=== PATIENT | female | born 1965 | race Caucasian/White ===

== ENCOUNTER → 2018-09-29 09:23 | Outpatient (POV) | payer BC, SELFPAY | PROVIDERS: Visit Provider Dermatology | DX: Z00.00 Encounter for general adult medical examination without abnormal findings (principal) ==

== ENCOUNTER → 2018-10-27 09:36 | Outpatient (POV) | payer BC, SELFPAY | PROVIDERS: Visit Provider Dermatology | DX: Z00.00 Encounter for general adult medical examination without abnormal findings (principal) ==

== ENCOUNTER → 2018-11-27 08:27 | Outpatient (CLI) | payer BC, SELFPAY ==
--- NOTE | 2018-11-27 08:30 | MR_ITS ---
MR head/brain wo/w con HISTORY: Electric shock pulses and tingling in the body ITS.REASON: DYSESTHESIA AFFECTING BOTH SIDE ORDERING PHYSICIAN: Raiza Harden APRN PATIENT AGE: 53 years Comparison: None TECHNIQUE: Standard multiplanar multiecho sequences are performed without and with gadolinium enhancement 2 FINDINGS: No midline shift, mass effect, intracranial hemorrhage, or hydrocephalus is evident. The cerebellopontine angles, cerebellum, and brainstem have an unremarkable appearance. There is normal razo-white matter differentiation. No enhancing lesions are evident. There is a partially empty sella as a normal variant. The optic chiasm, corpus callosum, and craniocervical junction have an unremarkable appearance. The hippocampal structures are unremarkable in the temporal horns are symmetric. No mastoid effusion or sinus air-fluid level IMPRESSION: Negative MRI of the brain without and with contrast
--- NOTE | 2018-11-27 10:12 | HMH.ITSHM ---
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 []TEMAZEPAM GABAPENTIN CETIRIZINE HCL MONTELUKAST ALBUTEROL SULFATE HYDROXYCHLOROQUINE TRIAMCINOLONE ACETONIDE CREAM LOSARTAN HYDROXYZINE PANTOPRAZOLE ULORIC TRAMADOL BUMETUNIDE POTASSIUM B COMPLEX D3 BIOTIN MULTI VITAMIN
== END ==
PROVIDERS: PCP Nurse Practitioner Family; Visit Provider Nurse Practitioner Family
DX: R20.8 Other disturbances of skin sensation (principal); R20.2 Paresthesia of skin
CPT/HCPCS: 70553; A9576

== ENCOUNTER → 2018-12-10 11:18 | Outpatient (CLI) | payer BC, SELFPAY ==
--- NOTE | 2018-12-10 11:42 | XR_ITS ---
XR knee LT 3V HISTORY: ITS.REASON: LT KNEE PAIN ORDERING PHYSICIAN: Raiza Harden APRN PATIENT AGE: 53 years COMPARISON: None FINDINGS: The bone density is normal. There is a rounded ring type of sclerotic area at the anterior proximal tibia which is likely related to the anterior tibial tuberosity. There is no definite focal osseous lesion. There is no acute fracture or joint effusion. The joint spaces and alignment are normal. Soft tissues are unremarkable. Impression: No acute process.
== END ==
PROVIDERS: PCP Nurse Practitioner Family; Visit Provider Nurse Practitioner Family
DX: M25.562 Pain in left knee (principal)
CPT/HCPCS: 73562

== ENCOUNTER → 2019-02-04 14:01 | Outpatient (CLI) | payer BC, SELFPAY ==
--- NOTE | 2019-02-04 14:11 | XR_ITS ---
PROCEDURE: XR CHEST 2V CLINICAL HISTORY: PRURITUS The COMPARISON: No exams were available for comparison FINDINGS: Borderline cardiomegaly without failure. There is mild prominence of the superior mediastinum possibly due to overlying vasculature but is more prominent when compared to 09/19/2015. Lungs are clear. No acute bony findings. IMPRESSION: No acute finding. Borderline cardiomegaly without failure. Mild prominence of the upper mediastinum. Suggest follow-up to confirm stability Dictated by: Kristian Rick MD 02/04/2019 14:43 Signed by: <Electronically signed by Kristian Rick MD in [place]> 02/04/2019 14:43
== END ==
PROVIDERS: PCP Nurse Practitioner Family; Visit Provider Dermatology
DX: L29.8 Other pruritus (principal)
CPT/HCPCS: 71046

== ENCOUNTER → 2019-03-29 07:11 | Outpatient (CLI) | payer BC, SELFPAY ==
--- NOTE | 2019-03-29 | CA_ITS ---
APPROVED REPORT Exam: Pharmacologic Technologist: Jana Ortega Ht: 5 ft 6 in Wt: 254 lbs BSA: 2.21 m2 HR: 70 bpm BP: 91/61 mmHg Indications: Chest pain, Shortness of Air Medical History Medications: Gabapentin,,,,, Multi Vitamin,,,,, Vitamin D3,,,,, Losartan,,,,, Pantoprazole,,,,, Temazepam,,,,, Iron,,,,, Tramadol,,,,, Montelukast,,,,, Hydroxychloroquine,,,,, CetIRIZINE,,,,, BuMETANIDE,,,,, Stress Test Details Test: LEXISCAN HR Resting HR: 72 bpm Max Heart Rate (APMHR): 167 bpm Max HR Achieved: 98 bpm Target HR (85% APMHR): 141 bpm % of APMHR: 58 Recovery HR: 82 bpm BP Resting BP: 91.0/61.0 mmHg Max BP: 116.0/49.0 mmHg Recovery BP: 114.0/47.0 mmHg ECG Clinical Exercise duration: 04:02 min Highest Stage Achieved: Stress ECG Conclusion Resting ECG: Sinus Rhythm Lexiscan portion complete. Symptoms: No chest pain, shortness of breath or nausea. Arrhythmias/Ectopy: Occasional PVC. Occasional PAC. ST-T Changes: Less than 1.[address] depression. Conclusion: Non-diagnostic. Images to follow. Electronically signed by : Dean Levine, 03/29/2019 21:32:19
--- NOTE | 2019-03-29 07:12 | NM_ITS ---
APPROVED REPORT Exam: Nuclear Stress Test Indication: Chest pain, SOB Patient Location: Outpatient Stress Tech: Jana Ortega [place] Tech:Charity Orr JONIT, RT (R)(N) Ht: 5 ft 6 in Wt: 254 lbs Bra Size: 44D HR: 70 bpm BP: 91/60 mmHg BSA: 2.21 m2 BMI: 40.9 History: Chest pain, SOB Procedure: Patient received a 0.4 mg of intravenous Lexiscan, resting heart rate 70 bpm, resting blood pressure 91/60 mmHg, with Lexiscan maximum heart rate achived was 85 bpm which is Less than 85 % of the maximum predicted heart rate and blood pressure was 115/46 mmHg. With Lexiscan, patient denied any complaint of chest pain. Electrocardiogram Resting electrocardiogram shows sinus rhythm, with Lexiscan there is less than 1.[address] segment depression noted from the baseline EKG. The EKG portion of the Lexiscan is nondiagnostic. Cardiac Stress and Resting SPECT Images: Cardiac Stress and Resting SPECT images were obtained using technetium 99m Myoview 32.7 mCi stress and 10.20 mCi at rest. Gated SPECT with analysis of segmental wall motion and calculation of the ejection fraction also done. Cardiac stress and resting SPECT images show mild defect in the anterior wall with normal perfusion of the apex and normal contractility and the gated SPECT is likely secondary to soft tissue attenuation, no reversible ischemia seen. Computer derived ejection fraction is over 65% with no regional wall motion abnormality, right ventricle is normal size and contractility. Conclusion: 1. The EKG portion of the Lexiscan Myoview is nondiagnostic. 2. No scintigraphic evidence of reversible ischemia seen, mild defect in the anterior wall is likely secondary to soft tissue attenuation, computer derived ejection fraction is over 65% with no regional wall motion abnormality, right ventricle is normal size and contractility. 3. Likely normal Lexiscan Myoview study. Electronically signed by : Dean Levine, 03/29/2019 21:35:04
--- NOTE | 2019-03-29 07:12 | CA_ITS ---
APPROVED REPORT EXAM: Comprehensive 2D, Doppler, and color-flow Echocardiogram Corrections Corporal: Ailyn Valencia RDCS Ht: 5 ft 6 in Wt: 253lbs BSA: 2.21 BP: 102/56 mmHg Indications: Abnormal ECG, Chest Pain, Shortness of Breath 2D Dimensions LVOT 1.80 cm (M/F) 1.5-2.5 M-Mode Dimensions RVDd 2.50 cm (0.9-2.6) LA Diam 4.80 cm (1.9-4.0) LVDd 5.70 cm (3.5-5.7) Ao Diam 2.60 cm (2.0-3.7) LVDs 4.30 cm (3.5-5.7) AV Cusp 1.40 cm (1.5-2.6) IVSd 1.00 cm (0.6-1.1) PWd 1.00 cm (0.6-1.1) EF (Teich) 48.10% FS 24.60% EDV (Teich) 160.00 mL ESV (Teich) 83.10 mL LV Diastology E/A Ratio 1.6 MED E' 10.00 (< 7 cm/sec) E'/MED E' Ratio 10.80 (>14) LAT E' 14.70 (<10 cm/sec) E/LAT E' Ratio 7.30 (>14) Mitral Valve MV E Max Vimal. 108.00 (40-130 cm/s) MV A Velocity 67.60 (40-130 cm/s) E/A Ratio 1.60 Left Ventricle Left atrium is upper limit of the normal size, left ventricle is normal size, there is no concentric left ventricular hypertrophy, visually estimated ejection fraction 55% with no regional wall motion abnormality, diastolic parameters are within normal range. Right Ventricle Right atrium and right ventricular normal size and contractility. Aortic Valve Aortic valve is grossly normal, there is no aortic stenosis aortic insufficiency. Mitral Valve Mitral valve is grossly normal, there is no mitral stenosis, there is mild mitral regurgitation. Tricuspid Valve Tricuspid valve is grossly normal, there is mild tricuspid regurgitation, tricuspid regurgitation jet velocity is inadequate for calculation of the right ventricular systolic pressure. Pulmonic Valve Pulmonic valve is poorly visualized. Great Vessels Aortic root is normal size. Pericardium No significant pericardial effusion noted. Conclusion 1. Normal left ventricular size, preserved left ventricular systolic function, visually estimated ejection fraction 55% with no regional wall motion abnormality, diastolic parameters are within normal range. 2. Mild mitral and tricuspid regurgitation. 3. No significant pericardial effusion noted. Electronically signed by : Dean Levine, 03/30/2019 06:12:13
--- NOTE | 2019-03-29 09:22 | HMH.ITSHM ---
Current Home Medications as stated by this patient Elana Nicholson or sales representative consultant. []GABAPENTIN CETIRIZINE MONTELKAST HYDROXYCHLORAQUINE LOSARTAN PANTOPRAZOLE ULORIC B-COMPLEX D3 MULTIVITAMIN IRON TEMAZEMPAM TRAMADOL BUMETANIDE POTASSIUM
== END ==
PROVIDERS: PCP Nurse Practitioner Family; Visit Provider Internal Medicine
DX: R06.00 Dyspnea, unspecified (principal); I42.9 Cardiomyopathy, unspecified; I51.7 Cardiomegaly; R53.83 Other fatigue; R60.0 Localized edema; R94.31 Abnormal electrocardiogram [ECG] [EKG]; G47.00 Insomnia, unspecified
CPT/HCPCS: 78452; 93017; 93306; A9502; J2785

== ENCOUNTER → 2019-04-07 07:54 | Outpatient (CLI) | payer BC, SELFPAY ==
--- NOTE | 2019-04-07 08:03 | US_ITS ---
PROCEDURE: US SOFT TISSUE HEAD AND NECK CLINICAL INDICATION: CERVICAL LYMPHADENOPATHY COMPARISON: No exams were available for comparison FINDINGS: The parotid and submandibular glands have an unremarkable appearance. There is palpable area reported in the right lateral neck. This represents a an enlarged hypoechoic lymph node measuring 18 x 13 mm. Other smaller nodes are also present. The largest node in the right lateral neck region measures 2.3 by 1.3 cm. No obvious abscess or other significant anomaly IMPRESSION: Right cervical adenopathy. Recommend follow-up regarding appropriate treatment. If the nodes do not decrease in size then, fine needle aspiration/core biopsy could be obtained with ultrasound guidance. Consider CT scan with contrast for further evaluation. Dictated by: Kristian Rick MD 04/07/2019 15:33 Electronically signed by Kristian Rick MD in [place] 04/07/2019 15:33
--- NOTE | 2019-04-07 08:03 | US_ITS ---
PROCEDURE: US THYROID CLINICAL INDICATION: THYROID NODULE COMPARISON: No exams were available for comparison FINDINGS: Right lobe: 4.4 x 1.7 x 2.6 cm. 7 x 4 mm cystic nodule in the upper pole. In the mid polar region there are 2 solid-appearing nodules measuring 8 x 5 and 8 x 6 mm. Left lobe: 3.5 x 1.6 x 1.5 cm. There is an ill-defined area of decreased echogenicity in the upper pole at 6 mm possibly due to small nodule versus heterogeneous echogenicity. Isthmus: Mildly thickened at 4 mm Additional findings: IMPRESSION: Benign-appearing nodules of the thyroid gland. Suggest 6 month follow-up. Dictated by: Kristian Rick MD 04/07/2019 15:48 Electronically signed by Kristian Rick MD in [place] 04/07/2019 15:48
--- NOTE | 2019-04-07 08:04 | MM_ITS ---
PROCEDURE: MM DIG SCREENING MAMM BI W/CAD Patient Age:54Y CLINICAL INDICATION: SCREENING baseline screening mammogram. No hormones. But no new complaints. Noncontributory family history. 54-year-old. COMPARISON: No exams were available for comparison baseline mammogram TECHNIQUE: Standard CC and MLO images were obtained. R2 CAD reviewed. FINDINGS: Low-density breast minimal residual fibroglandular elements with generalized fatty replacement. No suspicious or dominant mass in either breast but no suspicious calcifications. CAD highlights no areas of significant concern. Only note benign-appearing small dense axillary lymph node on left with no suspicious areas . Bilateral follow-up 1 year IMPRESSION: Negative baseline mammogram. No areas of significant concern. Low-density breast fatty replacement Bilateral follow-up 1 year recommended BI-RAD Category: FOLLOW-UP: (A letter has been sent to the patient regarding results of the study.) Dictated by: Howard Abbasi MD 04/10/2019 07:56 Electronically signed by Howard Abbasi MD in [place] 04/10/2019 07:56
== END ==
PROVIDERS: PCP Nurse Practitioner Family; Visit Provider Nurse Practitioner Family
DX: E01.0 Iodine-deficiency related diffuse (endemic) goiter (principal); R59.0 Localized enlarged lymph nodes; Z12.31 Encounter for screening mammogram for malignant neoplasm of breast
CPT/HCPCS: 76536; 77067

== ENCOUNTER → 2019-04-23 09:37 | Outpatient (CLI) | payer BC, SELFPAY ==
--- NOTE | 2019-04-23 09:39 | CT_ITS ---
PROCEDURE: CT SOFT TISSUE NECK WO/W CON CLINICAL HISTORY: difficulty swallowing Goiter, dysphagia COMPARISON: US THYROID from 04/07/2019 TECHNIQUE: Oral Contrast: None IV Contrast: 75ml optiray 350 Axial images obtained with sagittal and coronal reformats. All CT scans at the facility use one or more dose reduction, viz: automated exposure control, ma/kV adjustment per patient size (including targeted exams where dose is matched to indication, i.e. head), or iterative reconstruction technique. FINDINGS: The there is cervical adenopathy mainly in the supraclavicular region with left supraclavicular node at 3.8 x 1.4 cm. Images obtained of the upper chest also showed mediastinal adenopathy with blane mass measuring up to 3.8 x 3 cm. The pharynx, epiglottis, and glottic region is unremarkable. There is nodularity of the thyroid gland. Please see recent ultrasound report IMPRESSION: Cervical and mediastinal adenopathy. Differential diagnosis includes lymphoma, metastatic disease or infection/inflammation Dictated by: Kristian Rick MD 04/25/2019 09:35 Electronically signed by Kristian Rick MD in [place] 04/25/2019 09:35
--- NOTE | 2019-04-23 09:39 | FL_ITS ---
PROCEDURE: FL BARIUM SWALLOW CLINICAL INDICATION: dysphagia COMPARISON: No exams were available for comparison TECHNIQUE: In the upright position the patient was observed to swallow barium in both the AP and lateral view. The cervical esophagus was examined under fluoroscopy with images obtained. The patient was then placed prone in the right anterior oblique position and was observed to swallow barium with Valsalva technique . FLUOROSCOPY TIME: 53 seconds FINDINGS: There was no evidence of aspiration. There was normal peristalsis. No filling defects or mucosal abnormalities. No masses or strictures. No hernia or reflux IMPRESSION: Negative barium swallow. Dictated by: Kristian Rick MD 04/23/2019 15:50 Electronically signed by Kristian Rick MD in [place] 04/23/2019 15:50
[2019-04-23 10:29] LABS: Blood Urea Nitrogen 8 mg/dL (7-18); Creatinine,Serum 1.07 mg/dL (0.55-1.02); Estimated Glomerular Filt Rate 54 ml/min (>60); GFR (African American) 65 ML/MIN (>60)
== END ==
PROVIDERS: PCP Nurse Practitioner Family; Visit Provider Otolaryngology
DX: R13.10 Dysphagia, unspecified (principal); E04.9 Nontoxic goiter, unspecified; R59.0 Localized enlarged lymph nodes
CPT/HCPCS: 36415; 70492; 74220; 82565; 84520; Q9967

== ENCOUNTER → 2019-05-18 13:34 | Outpatient (CLI) | payer BC, SELFPAY ==
[2019-05-19 13:48] LABS: Occult Blood,Stool Negative (Negative)
[2019-05-19 13:48] LABS: Occult Blood,Stool Negative (Negative)
== END ==
PROVIDERS: Visit Provider Internal Medicine Gastroenterology
DX: D50.9 Iron deficiency anemia, unspecified (principal)
CPT/HCPCS: 82272; G0328

== ENCOUNTER → 2019-05-19 13:27 | Outpatient (CLI) | payer BC, SELFPAY ==
[2019-05-19 13:47] LABS: Occult Blood,Stool Negative (Negative)
== END ==
PROVIDERS: Visit Provider Internal Medicine Gastroenterology
DX: D50.9 Iron deficiency anemia, unspecified (principal)
CPT/HCPCS: 82272; G0328

== ENCOUNTER → 2019-05-25 09:26 | Outpatient (CLI) | payer BC, SELFPAY ==
--- NOTE | 2019-05-25 09:28 | US_ITS ---
PROCEDURE: US FNA LYMPH NODE/ultrasound-guided core biopsy right neck CLINICAL INDICATION: Cervical adenopathy COMPARISON: 04/23/2019 FINDINGS: Following obtaining informed consent and time-out procedure using aseptic technique and ultrasound guidance with local anesthesia with 1 percent buffered lidocaine initial fine needle aspiration performed the dominant right supraclavicular nodule. Two FNA is were performed with 21 gauge needle 1 in formalin and the other and RPMI. Following this, a skin max was performed and an 18 gauge core biopsy needle was inserted. Four cores were obtained with sonographic guidance. Two samples were put in the formaldehyde and 2 samples in the RPMI. The patient tolerated the procedure well without evidence of immediate complication. Pathology: Atypical lymphoid population. Please see pathologist report IMPRESSION: Successful sonographic guided fine needle aspiration and core biopsy of right supraclavicular nodule without complications Dictated by: Kristian Rick MD 05/29/2019 11:36 Electronically signed by Kristian Rick MD in [place] 05/29/2019 11:36
== END ==
PROVIDERS: PCP Nurse Practitioner Family; Visit Provider Otolaryngology
DX: R59.0 Localized enlarged lymph nodes (principal)
CPT/HCPCS: 38505; 76942

== ENCOUNTER → 2019-06-03 15:23 | Outpatient (CLI) | payer BC, SELFPAY ==
--- NOTE | 2019-06-03 | ECG_ITS ---
APPROVED REPORT Exam: Resting ECG HR:64 bpm ECG Measurements Heart Rate 64 AXES WY 160 P 54 QRSd 82 QRS 73 QT 412 T 61 QTc 425 <Conclusion> Normal sinus rhythm Low voltage QRS Borderline ECG Electronically signed by : Jose Pryor, 06/04/2019 07:22:27
[2019-06-03 16:06] LABS: Basophils % 0.4 % (0.1-2.0); Eosinophils # 0.5 K/mm3 (0.0-0.4); Eosinophils % 5.7 % (0.1-12.0); Hematocrit 34.4 % (37.0-47.0); Hemoglobin 10.1 g/dL (12.2-16.2); Lymphocytes # 1.2 K/mm3 (0.7-4.5); Lymphocytes % 14.4 % (10-50); Mean Corpuscular HGB Conc 29.4 g/dL (31.8-35.4); Mean Corpuscular Volume 74.9 fl (81-99); Mean Platelet Volume 7.6 fl (7.4-10.4); Monocytes # 0.5 K/mm3 (0.1-1.0); Neutrophils # 6.1 K/mm3 (1.8-7.8); Neutrophils % 73.6 % (37.0-80.0); Platelet Count 185 K/mm3 (142-424); Red Cell Distribution Width 17.2 % (11.5-17.5); White Blood Count 8.2 K/mm3 (4.8-10.8)
[2019-06-03 19:46] LABS: Alanine Aminotransferase 18 U/L (12-78); Albumin Level 3.2 gm/dL (3.4-5.0); Alkaline Phosphatase 97 U/L (46-116); Anion Gap 14.4 mEq/L (5-15); Aspartate Amino Transferase 14 U/L (15-37); Bilirubin,Total 0.1 mg/dL (0.2-1.0); Blood Urea Nitrogen 15 mg/dL (7-18); Calcium 7.9 mg/dL (8.5-10.1); Carbon Dioxide 28 mmol/L (21.0-32.0); Chloride 105 mmol/L (98-107); Creatinine,Serum 1.09 mg/dL (0.55-1.02); Estimated Glomerular Filt Rate 53 ml/min (>60); GFR (African American) 64 ML/MIN (>60); Globulin 3.3 gm/dl (1.3-3.2); Glucose 109 mg/dL (74-106); Potassium 4.4 mmoL/L (3.5-5.1); Sodium 143 mmol/L (136-145); Total Protein,Serum 6.5 gm/dL (6.4-8.2)
== END ==
PROVIDERS: Visit Provider Otolaryngology
DX: Z01.818 Encounter for other preprocedural examination (principal); R59.0 Localized enlarged lymph nodes
CPT/HCPCS: 36415; 80053; 85025; 93005

== ENCOUNTER → 2019-06-29 11:02 | Outpatient (CLI) | payer BC, SELFPAY ==
[2019-06-29 11:05] LABS: Microscopic, Urine URINE MICROSCOPIC (MICROSCOPIC)
[2019-06-29 11:27] LABS: Basophils # 0.1 K/mm3 (0-0.2); Basophils % 0.5 % (0.1-2.0); Eosinophils # 0.3 K/mm3 (0.0-0.4); Eosinophils % 2.8 % (0.1-12.0); Hematocrit 37.2 % (37.0-47.0); Hemoglobin 11.1 g/dL (12.2-16.2); Lymphocytes # 1.3 K/mm3 (0.7-4.5); Lymphocytes % 14.5 % (10-50); Mean Corpuscular HGB Conc 29.7 g/dL (31.8-35.4); Mean Corpuscular Hemoglobin 22.4 pg (27.0-31.2); Mean Corpuscular Volume 75.2 fl (81-99); Mean Platelet Volume 8.2 fl (7.4-10.4); Monocytes # 0.6 K/mm3 (0.1-1.0); Monocytes % 6.2 % (1.7-9.3); Neutrophils # 6.8 K/mm3 (1.8-7.8); Neutrophils % 75.8 % (37.0-80.0); Platelet Count 258 K/mm3 (142-424); Red Blood Count 4.95 M/mm3 (4.20-5.40); Red Cell Distribution Width 15.6 % (11.5-17.5)
[2019-06-29 11:42] LABS: Anion Gap 13.4 mEq/L (5-15); Appearance,Urine CLEAR (Clear); Bilirubin,Urine Negative (Negative); Blood Urea Nitrogen 19 mg/dL (7-18); Blood, Urine Negative (Negative); Calcium 9.1 mg/dL (8.5-10.1); Carbon Dioxide 26 mmol/L (21.0-32.0); Chloride 106 mmol/L (98-107); Color,Urine YELLOW (Yellow); Creatinine,Serum 1.07 mg/dL (0.55-1.02); Estimated Glomerular Filt Rate 54 ml/min (>60); GFR (African American) 65 ML/MIN (>60); Glucose 98 mg/dL (74-106); Glucose,Urine (UA) Negative (Negative); Ketones,Urine Negative (Negative); Leukocyte Esterase,Urine Negative (Negative); Nitrate,Urine Negative (Negative); Potassium 4.4 mmoL/L (3.5-5.1); Protein,Urine Negative (Negative); Sodium 141 mmol/L (136-145); Specific Gravity, Urine >= 1.030 (1.005-1.030); Urobilinogen,Urine 0.2 EU/dl (0.2)
[2019-06-29 12:10] LABS: Bacteria,Urine Trace /lpf; WBC,Urine Occasional #/hpf (0-3)
== END ==
PROVIDERS: Visit Provider Surgery
DX: C81.91 Hodgkin lymphoma, unspecified, lymph nodes of head, face, and neck (principal)
CPT/HCPCS: 36415; 80048; 81001; 85025

== ENCOUNTER 2019-07-08 10:09 | Outpatient (CLI) | payer BC, SELFPAY ==
[2019-07-08] VITALS (11 sets, daily range): BP systolic 98–114; BP diastolic 46–64; PULSE 61–81; RESP 18–20; TEMP 36.9; O2SAT 92–99; BMI 40.8
[2019-07-08 11:25] LABS: Ferritin 37 ng/mL (8-388)
[2019-07-08 11:35] LABS: Erythrocyte Sedimentation Rate > 140 mm/hr (0-30)
[2019-07-09 13:30] LABS: Iron 12 ug/dL (27-159); UIBC 289 ug/dL (131-425)
[2019-07-10 09:27] LABS: Iron Saturation 4 % (15-55)
== END 2019-07-08 14:00 | disposition home or self-care (01) ==
LOC: INF 10:09
PROVIDERS: Visit Provider Internal Medicine Medical Oncology
DX: Z51.11 Encounter for antineoplastic chemotherapy (principal); C81.71 Other Hodgkin lymphoma, lymph nodes of head, face, and neck
CPT/HCPCS: 82728; 83540; 83550; 85651; 96409; 96411; 96413; 96417; J1642; J9000; J9040; J9130; J9360; Q0166

== ENCOUNTER 2019-07-12 09:59 | Outpatient (CLI) | payer BC, SELFPAY ==
[2019-07-12 10:00] VITALS: BMI 40.8
[2019-07-12 10:19] LABS: Basophils % 0.1 % (0.1-2.0); Eosinophils # 0.1 K/mm3 (0.0-0.4); Eosinophils % 1.6 % (0.1-12.0); Hematocrit 33.1 % (37.0-47.0); Hemoglobin 10.2 g/dL (12.2-16.2); Lymphocytes # 0.7 K/mm3 (0.7-4.5); Lymphocytes % 11.3 % (10-50); Mean Corpuscular HGB Conc 30.9 g/dL (31.8-35.4); Mean Corpuscular Hemoglobin 22.3 pg (27.0-31.2); Mean Corpuscular Volume 72.2 fl (81-99); Mean Platelet Volume 9.6 fl (7.4-10.4); Monocytes # 0.1 K/mm3 (0.1-1.0); Neutrophils # 5.2 K/mm3 (1.8-7.8); Platelet Count 97 K/mm3 (142-424); Red Blood Count 4.59 M/mm3 (4.20-5.40); Red Cell Distribution Width 15.1 % (11.5-17.5)
[2019-07-12 10:24] LABS: MANUAL DIFFERENTIAL MANUAL DIFFERENTIAL (MANUAL DIFF)
[2019-07-12 10:27] VITALS: BP 134/71; PULSE 52; RESP 20; TEMP 36.4; O2SAT 98
[2019-07-12 10:34] LABS: Alanine Aminotransferase 23 U/L (12-78); Albumin Level 3.1 gm/dL (3.4-5.0); Albumin/Globulin Ratio 0.9 (1.1-1.8); Alkaline Phosphatase 84 U/L (46-116); Anion Gap 13.9 mEq/L (5-15); Aspartate Amino Transferase 20 U/L (15-37); Bilirubin,Total 0.6 mg/dL (0.2-1.0); Blood Urea Nitrogen 21 mg/dL (7-18); Calcium 8.4 mg/dL (8.5-10.1); Carbon Dioxide 28 mmol/L (21.0-32.0); Chloride 102 mmol/L (98-107); Creatinine Clearance Estimated 112 mL/min (50-200); Creatinine,Serum 1.05 mg/dL (0.55-1.02); Estimated Glomerular Filt Rate 55 ml/min (>60); GFR (African American) 66 ML/MIN (>60); Globulin 3.3 gm/dl (1.3-3.2); Glucose 105 mg/dL (74-106); Potassium 3.9 mmoL/L (3.5-5.1); Sodium 140 mmol/L (136-145); Total Protein,Serum 6.4 gm/dL (6.4-8.2)
[2019-07-12 10:46] LABS: Eosinophils % 1 % (0-3); Hypochromasia 2+; Lymphocytes % 12 % (10-50); Monocytes % 2 % (2-9); Neutrophils % 85 % (42-76); Total Cells Counted 100
[2019-07-12 10:47] LABS: Platelet Estimate Marked Decrease
[2019-07-12 11:00] VITALS: BP 137/68; PULSE 68; RESP 20; TEMP 36.4; O2SAT 95
[2019-07-12 11:25] VITALS: BP 132/74; PULSE 68; RESP 20; TEMP 36.9; O2SAT 98
== END 2019-07-12 11:30 | disposition home or self-care (01) ==
LOC: INF 09:59
PROVIDERS: PCP Nurse Practitioner Family; Visit Provider Internal Medicine Medical Oncology
DX: C81.71 Other Hodgkin lymphoma, lymph nodes of head, face, and neck (principal)
CPT/HCPCS: 80053; 85007; 85025; 96360; 96375; J1642

== ENCOUNTER 2019-07-16 13:32 | Outpatient (CLI) | payer BC, SELFPAY ==
[2019-07-16 13:40] VITALS: BMI 40.6
[2019-07-16 13:48] VITALS: BP 143/72; PULSE 69; RESP 18; O2SAT 100
[2019-07-16 14:04] LABS: Basophils % 1.4 % (0.1-2.0); Eosinophils % 4.2 % (0.1-12.0); Hemoglobin 11.3 g/dL (12.2-16.2); Lymphocytes # 0.4 K/mm3 (0.7-4.5); Lymphocytes % 81.7 % (10-50); Mean Corpuscular HGB Conc 31.4 g/dL (31.8-35.4); Mean Corpuscular Hemoglobin 22.1 pg (27.0-31.2); Mean Corpuscular Volume 70.5 fl (81-99); Mean Platelet Volume 9.4 fl (7.4-10.4); Monocytes % 0.5 % (1.7-9.3); Neutrophils # 0.1 K/mm3 (1.8-7.8); Platelet Count 166 K/mm3 (142-424); Red Cell Distribution Width 16.1 % (11.5-17.5)
[2019-07-16 14:09] LABS: Neutrophils % 12.2 % (37.0-80.0)
[2019-07-16 14:12] LABS: MANUAL DIFFERENTIAL MANUAL DIFFERENTIAL (MANUAL DIFF); White Blood Count 0.4 K/mm3 (4.8-10.8)
[2019-07-16 14:25] LABS: Eosinophils % 3 % (0-3); Lymphocytes % 84 % (10-50); Neutrophils % 6 % (42-76); Total Cells Counted 100
[2019-07-16 14:26] LABS: Alanine Aminotransferase 31 U/L (12-78); Albumin Level 3.6 gm/dL (3.4-5.0); Albumin/Globulin Ratio 1.1 (1.1-1.8); Alkaline Phosphatase 80 U/L (46-116); Anion Gap 15.4 mEq/L (5-15); Anisocytosis 1+; Aspartate Amino Transferase 15 U/L (15-37); Bilirubin,Total 0.7 mg/dL (0.2-1.0); Blood Urea Nitrogen 22 mg/dL (7-18); Calcium 8.5 mg/dL (8.5-10.1); Carbon Dioxide 25 mmol/L (21.0-32.0); Chloride 95 mmol/L (98-107); Creatinine Clearance Estimated 116 mL/min (50-200); Creatinine,Serum 1.01 mg/dL (0.55-1.02); Estimated Glomerular Filt Rate 57 ml/min (>60); GFR (African American) 69 ML/MIN (>60); Globulin 3.2 gm/dl (1.3-3.2); Glucose 112 mg/dL (74-106); Microcytosis 1+; Platelet Estimate Normal; Potassium 3.4 mmoL/L (3.5-5.1); Sodium 132 mmol/L (136-145); Total Protein,Serum 6.8 gm/dL (6.4-8.2)
[2019-07-16 14:45] VITALS: BP 140/73; PULSE 73; RESP 18; O2SAT 100
== END 2019-07-16 14:45 | disposition still patient (30) ==
LOC: INF 13:32
PROVIDERS: Visit Provider Internal Medicine Medical Oncology
DX: C81.90 Hodgkin lymphoma, unspecified, unspecified site (principal); D50.9 Iron deficiency anemia, unspecified
CPT/HCPCS: 80053; 85007; 85025; 96365; J1439; J1642

== ENCOUNTER 2019-07-22 10:16 | Outpatient (CLI) | payer BC, SELFPAY ==
[2019-07-22] VITALS (9 sets, daily range): BP systolic 86–124; BP diastolic 44–63; PULSE 69–91; RESP 18; O2SAT 93; BMI 38.4
[2019-07-22 10:45] LABS: Basophils # 0.1 K/mm3 (0-0.2); Basophils % 1.4 % (0.1-2.0); Hematocrit 34.1 % (37.0-47.0); Hemoglobin 10.8 g/dL (12.2-16.2); Lymphocytes # 1.6 K/mm3 (0.7-4.5); Lymphocytes % 27.2 % (10-50); Mean Corpuscular HGB Conc 31.8 g/dL (31.8-35.4); Mean Corpuscular Hemoglobin 22.7 pg (27.0-31.2); Mean Corpuscular Volume 71.4 fl (81-99); Mean Platelet Volume 9.3 fl (7.4-10.4); Monocytes # 1.2 K/mm3 (0.1-1.0); Monocytes % 20.6 % (1.7-9.3); Neutrophils % 50.7 % (37.0-80.0); Platelet Count 267 K/mm3 (142-424); Red Blood Count 4.78 M/mm3 (4.20-5.40); Red Cell Distribution Width 15.7 % (11.5-17.5)
[2019-07-22 10:54] LABS: MANUAL DIFFERENTIAL MANUAL DIFFERENTIAL (MANUAL DIFF)
[2019-07-22 10:57] LABS: Alanine Aminotransferase 30 U/L (12-78); Albumin Level 2.9 gm/dL (3.4-5.0); Albumin/Globulin Ratio 0.8 (1.1-1.8); Alkaline Phosphatase 87 U/L (46-116); Anion Gap 12.9 mEq/L (5-15); Aspartate Amino Transferase 20 U/L (15-37); Bilirubin,Total 0.2 mg/dL (0.2-1.0); Blood Urea Nitrogen 23 mg/dL (7-18); Calcium 7.9 mg/dL (8.5-10.1); Carbon Dioxide 26 mmol/L (21.0-32.0); Chloride 95 mmol/L (98-107); Creatinine Clearance Estimated 60 mL/min (50-200); Creatinine,Serum 1.86 mg/dL (0.55-1.02); Estimated Glomerular Filt Rate 28 ml/min (>60); GFR (African American) 34 ML/MIN (>60); Globulin 3.7 gm/dl (1.3-3.2); Glucose 102 mg/dL (74-106); Sodium 131 mmol/L (136-145); Total Protein,Serum 6.6 gm/dL (6.4-8.2)
[2019-07-22 11:01] LABS: Potassium 2.9 mmoL/L (3.5-5.1)
[2019-07-22 11:07] LABS: Acanthocytes 1+; Anisocytosis 1+; Hypochromasia 2+; Lymphocytes % 30 % (10-50); Microcytosis 1+; Monocytes % 16 % (2-9); Myelocytes % 3 (0-1); Neutrophils % 39 % (42-76); Platelet Estimate Normal; Poikilocytosis 2+; Total Cells Counted 100
--- NOTE | 2019-07-22 11:17 | PC.NURSE ---
1117-pt left to go to oncology appointment will return to possibly get chemo
== END 2019-07-22 14:55 | disposition home or self-care (01) ==
LOC: INF 10:16
PROVIDERS: Visit Provider Internal Medicine Medical Oncology
DX: C81.90 Hodgkin lymphoma, unspecified, unspecified site (principal); D50.9 Iron deficiency anemia, unspecified
CPT/HCPCS: 80053; 85007; 85025; 96360; 96361; J1439; J1642

== ENCOUNTER 2019-07-26 09:00 | Outpatient (CLI) | payer BC, SELFPAY ==
[2019-07-26] VITALS (13 sets, daily range): BP systolic 102–133; BP diastolic 62–78; PULSE 61–78; RESP 18; TEMP 36.6–36.9; O2SAT 100; BMI 37.8
[2019-07-26 09:30] LABS: Alanine Aminotransferase 22 U/L (12-78); Albumin Level 2.6 gm/dL (3.4-5.0); Albumin/Globulin Ratio 0.7 (1.1-1.8); Alkaline Phosphatase 81 U/L (46-116); Anion Gap 15.3 mEq/L (5-15); Aspartate Amino Transferase 16 U/L (15-37); Bilirubin,Total 0.1 mg/dL (0.2-1.0); Blood Urea Nitrogen 9 mg/dL (7-18); Calcium 7.9 mg/dL (8.5-10.1); Carbon Dioxide 24 mmol/L (21.0-32.0); Chloride 109 mmol/L (98-107); Creatinine Clearance Estimated 96 mL/min (50-200); Creatinine,Serum 1.14 mg/dL (0.55-1.02); Estimated Glomerular Filt Rate 50 ml/min (>60); GFR (African American) 60 ML/MIN (>60); Globulin 3.5 gm/dl (1.3-3.2); Glucose 103 mg/dL (74-106); Potassium 3.3 mmoL/L (3.5-5.1); Sodium 145 mmol/L (136-145); Total Protein,Serum 6.1 gm/dL (6.4-8.2)
== END 2019-07-26 14:35 | disposition home or self-care (01) ==
LOC: INF 09:00
PROVIDERS: Visit Provider Internal Medicine Medical Oncology
DX: Z51.11 Encounter for antineoplastic chemotherapy (principal); C81.90 Hodgkin lymphoma, unspecified, unspecified site
CPT/HCPCS: 80053; 96409; 96411; 96413; 96415; 96417; J1642; J9000; J9040; J9130; J9360; Q0166

== ENCOUNTER 2019-08-02 08:46 | Outpatient (CLI) | payer BC, SELFPAY ==
--- NOTE | 2019-08-02 08:46 | US_ITS ---
PROCEDURE: US GALLBLADDER CLINICAL INDICATION: gallstones COMPARISON: No exams were available for comparison FINDINGS: Pancreas: Visualized portions are unremarkable Liver: There is diffuse fatty infiltration of the liver.. There is appropriate direction of blood flow within a non dilated portal vein. Right kidney: Unremarkable appearing. No hydronephrosis. Gallbladder: There is a small gallstone. Common bile duct is not dilated measuring 2.9 millimeters. There is no gallbladder wall thickening or ancillary finding of acute cholecystitis. IMPRESSION: Cholelithiasis without ancillary findings of acute cholecystitis. Dictated by: Enzo Davis 08/02/2019 10:38 Electronically signed by Enzo Davis in [place] 08/02/2019 10:38
[2019-08-02 10:26] VITALS: BMI 37.8
[2019-08-02 10:50] VITALS: BP 132/71; PULSE 71; RESP 20; TEMP 37.2; O2SAT 100
[2019-08-02 11:10] LABS: Eosinophils % 0.8 % (0.1-12.0); Hematocrit 29.9 % (37.0-47.0); Hemoglobin 9.6 g/dL (12.2-16.2); Lymphocytes # 0.2 K/mm3 (0.7-4.5); Lymphocytes % 38.7 % (10-50); Mean Corpuscular HGB Conc 32.1 g/dL (31.8-35.4); Mean Corpuscular Hemoglobin 23.1 pg (27.0-31.2); Mean Platelet Volume 9.8 fl (7.4-10.4); Monocytes % 3.2 % (1.7-9.3); Neutrophils # 0.3 K/mm3 (1.8-7.8); Neutrophils % 55.3 % (37.0-80.0); Platelet Count 94 K/mm3 (142-424); Red Blood Count 4.16 M/mm3 (4.20-5.40); Red Cell Distribution Width 15.5 % (11.5-17.5)
[2019-08-02 11:15] LABS: White Blood Count 0.6 K/mm3 (4.8-10.8)
[2019-08-02 11:17] LABS: MANUAL DIFFERENTIAL MANUAL DIFFERENTIAL (MANUAL DIFF)
[2019-08-02 11:21] LABS: Alanine Aminotransferase 45 U/L (9-52); Albumin/Globulin Ratio 0.9 (1.1-1.8); Alkaline Phosphatase 77 U/L (46-116); Aspartate Amino Transferase 22 U/L (15-37); Bilirubin,Total 0.6 mg/dL (0.2-1.0); Blood Urea Nitrogen 24 mg/dL (7-18); Calcium 8.5 mg/dL (8.5-10.1); Carbon Dioxide 25 mmol/L (21.0-32.0); Chloride 100 mmol/L (98-107); Creatinine Clearance Estimated 98 mL/min (50-200); Creatinine,Serum 1.11 mg/dL (0.55-1.02); Estimated Glomerular Filt Rate 51 ml/min (>60); GFR (African American) 62 ML/MIN (>60); Globulin 3.5 gm/dl (1.3-3.2); Glucose 131 mg/dL (74-106); Sodium 135 mmol/L (137-145); Total Protein,Serum 6.5 g/dL (6.4-8.2)
[2019-08-02 11:48] LABS: Lymphocytes % 40 % (10-50); Monocytes % 12 % (2-9); Neutrophils % 48 % (42-76); Total Cells Counted 25
[2019-08-02 11:49] LABS: Anisocytosis 1+; Hypochromasia 1+; Microcytosis 1+; Platelet Estimate Moderate Decrease
[2019-08-02 13:00] VITALS: BP 123/61; PULSE 75; RESP 18; O2SAT 98
[2019-08-02 13:07] VITALS: BP 114/79; PULSE 63; RESP 18; O2SAT 100
[2019-08-02 13:25] VITALS: BP 122/67; PULSE 76; RESP 18; TEMP 37.1; O2SAT 100
== END 2019-08-02 13:25 | disposition home or self-care (01) ==
PROVIDERS: Internal Medicine Medical Oncology; PCP Nurse Practitioner Family; Visit Provider Surgery
DX: K82.9 Disease of gallbladder, unspecified (principal)
CPT/HCPCS: 76705; 80053; 85007; 85025; 87040; 96360; 96361; 96366; 96367; J1642; J1956

== ENCOUNTER 2019-08-09 09:56 | Inpatient (IN) ==
[2019-08-09 10:43] LABS: Basophils # 0.1 K/mm3 (0-0.2); Basophils % 1.8 % (0.1-2.0); Eosinophils % 0.2 % (0.1-12.0); Hematocrit 34.1 % (37.0-47.0); Hemoglobin 10.5 g/dL (12.2-16.2); Lymphocytes # 1.2 K/mm3 (0.7-4.5); Lymphocytes % 38.4 % (10-50); Mean Corpuscular HGB Conc 30.9 g/dL (31.8-35.4); Mean Corpuscular Volume 73.4 fl (81-99); Mean Platelet Volume 9.1 fl (7.4-10.4); Monocytes # 0.2 K/mm3 (0.1-1.0); Monocytes % 7.6 % (1.7-9.3); Neutrophils # 1.6 K/mm3 (1.8-7.8); Platelet Count 302 K/mm3 (142-424); Red Blood Count 4.65 M/mm3 (4.20-5.40); Red Cell Distribution Width 15.9 % (11.5-17.5)
[2019-08-09 10:54] LABS: Bilirubin,Total 0.2 mg/dl (0.2-1.3)
[2019-08-09 10:55] LABS: Albumin Level 3.7 g/dl (3.5-5.0); Albumin/Globulin Ratio 1.2 (1.1-1.8); Anion Gap 14.9 mEq/L (5-15); Calcium 9.4 mg/dl (8.4-10.2); Total Protein,Serum 6.7 g/dl (6.3-8.2)
--- NOTE | 2019-08-09 17:02 | History & Physical Report ---
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 Demarco presented to the hospital today through o utpatient infusion over concerned that her potassium may be low. Patient states that after her chemotherapy she will have 2 to 3 days of feeling very good and then after that there is a gradual decline in her energy to the point where she even has trouble eating. She admits her difficulty eating may be psychosomatic because she does not want to be ill. She will develop nausea and inability to s wallow solids so her diet will consist mainly of liquids. Because of the developing weakness and prior history of hypokalemia delaying a chemotherapy infusion patient contacted the oncology office today regarding her weakness and concern over hypokalemia. She is due for her next bout of chemotherapy later this week. She was advised to come in and underwent labs. While the labs did not reveal any hypokalemia she was found to have an acute kidney injury with a creatinine greater than 4. Patient reports not only poor p.o. intake over the last week but 5 days of diarrhea with 3-4 small volume watery bowel movements per day. While she has been advised to drink 64 ounces of fluid a day patient admits that even on a good day she may get half that and on her worst day will get 24 ounces of fluid. Decision was made to admit the patient for IV fluids and repeat renal function in the morning. While patient has a history of minimal-change disease in 2016 that required hospitalization she has not been on Bumex for several months due to lack of edema. She takes losartan 25 mg daily. [facility] History I have reviewed the patient's past medical history: Yes Medical History: Reports:: Asthma, Cancer (hodgkins lymphoma), Gastroesophageal Reflux Disease(GERD), Hypertension, Valvular Heart Disease Denies:: Diabetes Mellitus Type 1, Diabetes Mellitus Type 2, Internal Pacemaker, MRSA, Seizures *Have you ever received a pneumonia vaccine?: No *Have you received a flu vaccine this season?: No Other Medical History: Reports: Anemia, Arthritis (RA), Chemotherapy, Other. Denies: Blood Transfusion Reaction Other Surgeries: Yes: No Previous Surgery, Cancer Surgery (lymphnode removed from right neck), Colonoscopy, EGD, Other. No: Pacemaker Amputation: No Fractures: No - *Social History Smoking Status: Never smoker Alcohol Intake: never Substance Use Type: denies use *Occupational Status:: unemployed Housing: house Household Members: spouse *Travel in the last 8 weeks: None Family Hx:: Asthma, Diabetes, Hyperlipidemia Review of Systems - Constitutional Reports weakness, Denies body ache(s), Denies chills - *Cardiovascular Denies chest pain - *Respiratory Denies change in phlegm color, Denies chest congestion, Denies shortness of breath - *Gastrointestinal Reports nausea, Denies abdominal pain, Denies belching, Denies bloating - Integumentary/Breasts Reports itching Meds Home Medications Medication Instructions Recorded Confirmed Type bumetanide 1 mg tablet 1 mg PO DAILY 03/22/19 08/09/19 History cetirizine 10 mg capsule 10 mg PO DAILY 03/22/19 08/09/19 History cholecalciferol (vitamin D3) 50 2,000 unit PO DAILY 03/22/19 08/09/19 History mcg (2,000 unit) capsule febuxostat 80 mg tablet 80 mg PO DAILY 03/22/19 08/09/19 History hydroxychloroquine 200 mg tablet 200 mg PO BID 03/22/19 08/09/19 History losartan 25 mg tablet 25 mg PO DAILY 03/22/19 08/09/19 History montelukast 10 mg tablet 10 mg PO QPM 03/22/19 08/09/19 History pantoprazole 40 mg tablet,delayed 40 mg PO HS 03/22/19 08/09/19 History release potassium chloride 10 mEq 10 meq PO DAILY 03/22/19 08/09/19 History tablet,extended release temazepam 15 mg capsule 15 mg PO QHS PRN 03/22/19 08/09/19 History tramadol 50 mg tablet 50 mg PO BID PRN 03/22/19 08/09/19 History vitamin B complex 1 tab PO DAILY 03/22/19 08/09/19 History biotin 1,000 mcg chewable tablet 1,000 mcg PO DAILY 04/22/19 08/09/19 History ferrous sulfate 325 mg (65 mg 325 mg PO DAILY 04/22/19 08/09/19 History iron) tablet gabapentin 400 mg capsule 400 mg PO QID cap 04/22/19 08/09/19 History Fluconazole 10 mg PO DAILY 01/15/20 02/24/20 History Hydrocod/Acet 5/325 mg [[place] 1 - 2 tab PO Q6HP PRN #13 tab 07/01/19 08/09/19 Rx 5/325mg tablet] Allergies Allergy/AdvReac Type Severity Reaction Status Date / Time No Known Allergies Allergy Verified 07/28/19 10:00 Exam Vital signs and Labs for Last 24 Hours: Temp Pulse Resp BP Pulse Ox 97.5 F L 74 18 96/54 L 98 08/09/19 15:17 08/09/19 15:17 08/09/19 15:17 08/09/19 15:17 08/09/19 15:17 Laboratory Results - last 24 hr 08/09/19 10:35: WBC 3.0 L, RBC 4.65, Hgb 10.5 L, Hct 34.1 L, MCV 73.4 L, MCH 22.6 L, MCHC 30.9 L, RDW 15.9, Plt Count 302, MPV 9.1, Neut % (Auto) 52.0, Lymph % (Auto) 38.4, Knott % (Auto) 7.6, Eos % (Auto) 0.2, Baso % (Auto) 1.8, Neut # (Auto) 1.6 L, Lymph # (Auto) 1.2, Knott # (Auto) 0.2, Eos # (Auto) 0.0, Baso # (Auto) 0.1 08/09/19 10:35: Sodium 134 L, Potassium 3.9, Chloride 95 L, Carbon Dioxide 28, Anion Gap 14.9, BUN 30 H, Creatinine 4.30 H, Estimated Creat Clear 27, Estimated GFR 11 L*, Est GFR ( Amer) 13 L*, Glucose 118 H, Calcium 9.4, Total Bilirubin 0.2, AST 26, ALT 27, Alkaline Phosphatase 82, Total Protein 6.7, Albumin 3.7, Globulin 3.0, Albumin/Globulin Ratio 1.2 I & O for Last 24 hours: Intake & Output 08/07/19 08/08/19 08/09/19 08/10/19 11:59 11:59 11:59 11:59 Intake Total 240 / 240 Balance 240 / 240 Weight 253 lb 219 lb 9 oz - *Routine HEENT Exam Head: Present: normocephalic (Her head has been shaved) Eye: Present: EOMI, PERRL ENT: Present: mucous membranes moist - *Routine Neck Exam Present: supple. Absent: lymphadenopathy - *Routine Respiratory Exam Present: CTA bilaterally - *Routine Cardiovascular Exam Present: RRR - *Routine Abdominal Exam Present: soft, normoactive bowel sounds. Absent: tenderness - *Routine Extremities Exam Absent: cyanosis, clubbing, edema - *Routine Skin Exam Present: warm. Absent: rash - *Routine Neurological Exam Present: alert, oriented X3 Assessment and Plan (1) Acute kidney injury Current visit: Yes Status: Acute Category: Medical Code(s): N17.9 - Acute kidney failure, unspecified (2) Cholelithiasis Current visit: No Status: Acute Qualifiers: Cholelithiasis location: gallbladder Cholecystitis presence: without cholecystitis Biliary obstruction: without biliary obstruction Qualified Code(s): K80.20 - Calculus of gallbladder without cholecystitis without obstruction Category: Medical Code(s): K80.20 - Calculus of gallbladder without cholecystitis without obstruction (3) Hodgkins lymphoma Current visit: No Status: Acute Qualifiers: Hodgkin lymphoma type: unspecified type Lymphoma site: unspecified region Qualified Code(s): C81.90 - Hodgkin lymphoma, unspecified, unspecified site Category: Medical Code(s): C81.90 - Hodgkin lymphoma, unspecified, unspecified site - Assessment and plan all Dx Assessment and Plan for all problems:: 1. Patient has been placed on normal saline at 150 mL's an hour and labs will be repeated in the morning. Urinalysis is been ordered due to the patient's history of minimal-change disease. Patient's losartan will be held
[2019-08-09 21:38] LABS: Microscopic, Urine URINE MICROSCOPIC (MICROSCOPIC)
[2019-08-09 21:40] LABS: Appearance,Urine CLEAR (Clear); Blood, Urine Negative (Negative); Color,Urine YELLOW (Yellow); Glucose,Urine (UA) Negative (Negative); Ketones,Urine Negative (Negative); Leukocyte Esterase,Urine Negative (Negative); Protein,Urine 1+ (Negative); Specific Gravity, Urine >= 1.030 (1.005-1.030); Urobilinogen,Urine 0.2 EU/dl (0.2)
[2019-08-09 22:02] LABS: Bilirubin,Urine Negative (Negative)
[2019-08-09 22:11] LABS: Bacteria,Urine Trace /lpf
[2019-08-10 07:05] LABS: Basophils % 1.1 % (0.1-2.0); Eosinophils % 0.8 % (0.1-12.0); Hematocrit 28.4 % (37.0-47.0); Lymphocytes # 1.2 K/mm3 (0.7-4.5); Lymphocytes % 38.8 % (10-50); Mean Corpuscular HGB Conc 32.3 g/dL (31.8-35.4); Mean Corpuscular Volume 72.3 fl (81-99); Mean Platelet Volume 8.2 fl (7.4-10.4); Monocytes # 0.2 K/mm3 (0.1-1.0); Monocytes % 7.2 % (1.7-9.3); Neutrophils # 1.6 K/mm3 (1.8-7.8); Neutrophils % 52.1 % (37.0-80.0); Platelet Count 175 K/mm3 (142-424); Red Blood Count 3.92 M/mm3 (4.20-5.40); Red Cell Distribution Width 16.1 % (11.5-17.5); White Blood Count 3.1 K/mm3 (4.8-10.8)
[2019-08-10 07:08] LABS: Hemoglobin 9.1 g/dL (12.2-16.2)
[2019-08-10 07:18] LABS: Anion Gap 12.5 mEq/L (5-15)
--- NOTE | 2019-08-10 07:20 | Pharmacy Consult Notes ---
[facility] Pharmacy VTE Monitoring - Patient Demographics Admission date: 08/09/19 Report Date: 08/10/19 Time: 07:19 Allergies/Adverse Reactions: Patient Allergies No Known Allergies Allergy (Verified 07/28/19 10:00) Height: 1.68 m Weight: 102.654 kg Patient Problems: Current Active Problems Acute kidney injury (Acute) - VTE Risk Labs: VTE Related Lab Results Hgb 9.1 g/dL (12.2-16.2) L D 08/10/19 06:48 Hct 28.4 % (37.0-47.0) L 08/10/19 06:48 Plt Count 175 K/mm3 (142-424) D 08/10/19 06:48 BUN 30 mg/dl (7-17) H 08/09/19 10:35 Creatinine 4.30 mg/dl (0.52-1.04) H 08/09/19 10:35 Estimated Creat Clear 27 mL/min (50-200) 08/09/19 10:35 - Prophylaxis VTE Prophylaxis Ordered?: Yes Types of VTE Prophylaxis: TEDS Knee High Location of Applied Device: Bilateral Lower Extremeties
--- NOTE | 2019-08-10 07:43 | Discharge Summary ---
General - General Admission date:: 08/09/19 Discharge date: 08/10/19 HPI HPI: 54-year-old female with history of minimal-change disease and recent diagnosis of Hodgkin's lymphoma for which she is currently undergoing treatment with chemotherapy ordered by Dr. Demarco presented to the hospital today through outpatient infusion over concerned that her potassium may be low. Patient states that after her chemotherapy she will have 2 to 3 days of feeling very good and then after that there is a gradual decline in her energy to the point where she even has trouble eating. She admits her difficulty eating may be psychosomatic because she does not want to be ill. She will develop nausea and inability to swallow solids so her diet will consist mainly of liquids. Because of the developing weakness and prior history of hypokalemia delaying a chemothe rapy infusion patient contacted the oncology office today regarding her weakness and concern over hypokalemia. She is due for her next bout of chemotherapy later this week. She was advised to come in and underwent labs. While the labs did not reveal any hypokalemia she was found to have an acute kidney injury with a creatinine greater than 4. Patient reports not only poor p.o. intake over the last week but 5 days of diarrhea with 3-4 small volume watery bowel movements per day. While she has been advised to drink 64 ounces of fluid a day patient admits that even on a good day she may get half that and on her worst day will get 24 ounces of fluid. Decision was made to admit the patient for IV fluids and repeat renal function in the morning. While patient has a history of minimal-change disease in 2016 that required hospitalization she has not been on Bumex for several months due to lack of edema. She takes losartan 25 mg daily. Hospital Course Hospital Course: Patient was admitted and started on normal saline at 150 mL's per hour. Patient ambulated while hospitalized. Appetite improved. Patient's admission creatinine was 4.3 and by the following morning had decreased to 3. Patient was continued on normal saline. She was discharged home later in the day on August 10. Patient will follow-up with oncology clinic as an outpatient. She has been advised to hold her losartan until follow-up with my office. Patient will restart her Uloric at discharge. Objective Vital signs: Temp Pulse Resp BP Pulse Ox 97.8 F 74 20 95/51 L 97 08/10/19 04:35 02/25/20 04:35 08/10/19 04:35 08/10/19 04:35 08/10/19 04:35 no acute distress - *Routine Respiratory Exam Present: CTA bilaterally - *Routine Cardiovascular Exam Present: RRR, Normal S1, Normal S2 - *Routine Abdominal Exam Present: soft, normoactive bowel sounds. Absent: tenderness - *Routine Extremities Exam Absent: edema Results Labs on day of discharge: Labs from last 24 hours 08/10/19 08/10/19 08/09/19 06:48 06:48 21:33 WBC 3.1 L RBC 3.92 L Hgb 9.1 L D Hct 28.4 L MCV 72.3 L MCH 23.4 L MCHC 32.3 RDW 16.1 Plt Count 175 D MPV 8.2 Neut % (Auto) 52.1 Lymph % (Auto) 38.8 [place] % (Auto) 7.2 Eos % (Auto) 0.8 Baso % (Auto) 1.1 Neut # (Auto) 1.6 L Lymph # (Auto) 1.2 [place] # (Auto) 0.2 Eos # (Auto) 0.0 Baso # (Auto) 0.0 Sodium 131 L Potassium 3.5 Chloride 102 Carbon Dioxide 20 L D Anion Gap BUN 30 H Creatinine 3.00 H D Estimated Creat Clear Estimated GFR Est GFR ( Amer) Glucose 89 D Calcium Total Bilirubin AST ALT Alkaline Phosphatase Total Protein Albumin Globulin Albumin/Globulin Ratio Urine Color Yellow Urine Appearance Clear Urine pH 5.0 Ur Specific [place] >= 1.030 Urine Protein 1+ Urine Glucose (UA) Negative Urine Ketones Negative Urine Blood Negative Urine Nitrate Negative Urine Bilirubin Negative Urine Urobilinogen 0.2 Ur Leukocyte Esterase Negative Urine WBC 3-5 Ur Squamous Epith Cells 3-5 Urine Bacteria Trace 08/09/19 08/09/19 10:35 10:35 WBC 3.0 L RBC 4.65 Hgb 10.5 L Hct 34.1 L MCV 73.4 L MCH 22.6 L MCHC 30.9 L RDW 15.9 Plt Count 302 MPV 9.1 Neut % (Auto) 52.0 Lymph % (Auto) 38.4 [place] % (Auto) 7.6 Eos % (Auto) 0.2 Baso % (Auto) 1.8 Neut # (Auto) 1.6 L Lymph # (Auto) 1.2 [place] # (Auto) 0.2 Eos # (Auto) 0.0 Baso # (Auto) 0.1 Sodium 134 L Potassium 3.9 Chloride 95 L Carbon Dioxide 28 Anion Gap 14.9 BUN 30 H Creatinine 4.30 H Estimated Creat Clear 27 Estimated GFR 11 L* Est GFR ( Amer) 13 L* Glucose 118 H Calcium 9.4 Total Bilirubin 0.2 AST 26 ALT 27 Alkaline Phosphatase 82 Total Protein 6.7 Albumin 3.7 Globulin 3.0 Albumin/Globulin Ratio 1.2 Urine Color Urine Appearance Urine pH Ur Specific [place] Urine Protein Urine Glucose (UA) Urine Ketones Urine Blood Urine Nitrate Urine Bilirubin Urine Urobilinogen Ur Leukocyte Esterase Urine WBC Ur Squamous Epith Cells Urine Bacteria DS: Diagnosis - Discharge Diagnosis (1) Acute kidney injury Status: Acute (2) Cholelithiasis Status: Acute (3) Hodgkins lymphoma Status: Acute Discharge Plan - Patient Discharge Instructions ACTIVITY: Continue current activity DIET: continue same diet - Follow up Plan Follow up with: Marybeth Demarco MD [Staff Physician] - Jose Mesa MD [Primary Care Provider] - 08/13/19 Disposition: Home, Self-Half-Way Medications: Home Medications Medication Instructions Recorded Confirmed Type bumetanide 1 mg tablet 1 mg PO DAILY 03/22/19 08/09/19 History cetirizine 10 mg capsule 10 mg PO DAILY 03/22/19 08/09/19 History cholecalciferol (vitamin D3) 50 2,000 unit PO DAILY 03/22/19 08/09/19 History mcg (2,000 unit) capsule febuxostat 80 mg tablet 80 mg PO DAILY 03/22/19 08/09/19 History hydroxychloroquine 200 mg tablet 200 mg PO BID 03/22/19 08/09/19 History losartan 25 mg tablet 25 mg PO DAILY 03/22/19 08/09/19 History pantoprazole 40 mg tablet,delayed 40 mg PO DAILY 03/22/19 08/10/19 History release potassium chloride 10 mEq 10 meq PO DAILY 03/22/19 08/09/19 History tablet,extended release temazepam 15 mg capsule 15 mg PO HS 03/22/19 08/10/19 History tramadol 50 mg tablet 50 mg PO BID PRN 03/22/19 08/09/19 History vitamin B complex 1 tab PO DAILY 03/22/19 08/09/19 History biotin 1,000 mcg chewable tablet 1,000 mcg PO DAILY 04/22/19 08/09/19 History ferrous sulfate 325 mg (65 mg 325 mg PO DAILY 04/22/19 08/09/19 History iron) tablet gabapentin 400 mg capsule 400 mg PO QID cap 04/22/19 08/09/19 History Fluconazole 10 mg PO DAILY 06/30/19 08/09/19 History Montelukast Sodium 10 mg PO HS 08/10/19 08/10/19 History Prescriptions/Medication Reconciliation: Continued hydroxychloroquine 200 mg tablet 200 mg PO BID pantoprazole 40 mg tablet,delayed release 40 mg PO DAILY febuxostat 80 mg tablet 80 mg PO DAILY vitamin B complex 1 tab PO DAILY cholecalciferol (vitamin D3) 50 mcg (2,000 unit) capsule 2,000 unit PO DAILY temazepam 15 mg capsule 15 mg PO HS potassium chloride 10 mEq tablet,extended release 10 meq PO DAILY biotin 1,000 mcg chewable tablet 1,000 mcg PO DAILY ferrous sulfate 325 mg (65 mg iron) tablet 325 mg PO DAILY cetirizine 10 mg capsule 10 mg PO DAILY tramadol 50 mg tablet 50 mg PO BID PRN PRN Reason: pain gabapentin 400 mg capsule 400 mg PO QID cap Montelukast Sodium 10 mg PO HS Fluconazole 10 mg PO DAILY Discontinued losartan 25 mg tablet 25 mg PO DAILY bumetanide 1 mg tablet 1 mg PO DAILY - Problem Reconciliation Problems Reviewed?: Yes
[2019-08-10 15:15] LABS: Calcium 8.1 mg/dl (8.4-10.2)
== END 2019-08-10 16:35 | disposition home or self-care (01) | DRG 683 ==
LOC: INF 09:56 → 2ND 12:07
PROVIDERS: ADMIT Family Medicine; ATTEND Family Medicine
CPT/HCPCS: 36415; 80048; 80053; 81001; 85025; J1642

== ENCOUNTER 2019-08-11 11:08 | Outpatient (CLI) | payer BC, SELFPAY ==
[2019-08-11 11:09] VITALS: BMI 35.9
[2019-08-11 11:26] LABS: Chloride 106 mmol/L (98-107); Potassium 3.5 mmoL/L (3.5-5.1); Sodium 137 mmol/L (136-145)
[2019-08-11 11:28] LABS: Blood Urea Nitrogen 18 mg/dl (7-17); Creatinine Clearance Estimated 74 mL/min (50-200); Estimated Glomerular Filt Rate 39 ml/min (>60); GFR (African American) 48 ML/MIN (>60)
[2019-08-11 11:29] LABS: Anion Gap 9.5 mEq/L (5-15); Calcium 8.9 mg/dl (8.4-10.2); Carbon Dioxide 25 mmol/L (22.0-30.0); Glucose 103 mg/dl (74-100)
[2019-08-11 11:45] VITALS: BP 88/58; PULSE 74; RESP 18
[2019-08-11 12:00] VITALS: BP 119/53; PULSE 73; RESP 18
[2019-08-11 12:30] VITALS: BP 115/54; PULSE 71; RESP 18
[2019-08-11 12:55] VITALS: BP 120/54; PULSE 71; RESP 18
== END 2019-08-11 12:55 | disposition home or self-care (01) ==
LOC: INF 11:08
PROVIDERS: Visit Provider Internal Medicine Medical Oncology
DX: C81.90 Hodgkin lymphoma, unspecified, unspecified site (principal); D50.9 Iron deficiency anemia, unspecified
CPT/HCPCS: 80048; 96360; J1642

== ENCOUNTER 2019-08-12 09:22 | Outpatient (CLI) | payer BC, SELFPAY ==
[2019-08-12 09:24] VITALS: BMI 35.9
[2019-08-12 09:35] LABS: Basophils % 0.6 % (0.1-2.0); Eosinophils % 0.2 % (0.1-12.0); Hematocrit 30.9 % (37.0-47.0); Hemoglobin 9.7 g/dL (12.2-16.2); Lymphocytes # 1.1 K/mm3 (0.7-4.5); Lymphocytes % 19.9 % (10-50); Mean Corpuscular HGB Conc 31.3 g/dL (31.8-35.4); Mean Corpuscular Hemoglobin 23.4 pg (27.0-31.2); Mean Corpuscular Volume 74.5 fl (81-99); Mean Platelet Volume 8.9 fl (7.4-10.4); Monocytes # 0.3 K/mm3 (0.1-1.0); Monocytes % 6.4 % (1.7-9.3); Neutrophils # 3.9 K/mm3 (1.8-7.8); Platelet Count 208 K/mm3 (142-424); Red Blood Count 4.15 M/mm3 (4.20-5.40); Red Cell Distribution Width 17.2 % (11.5-17.5); White Blood Count 5.4 K/mm3 (4.8-10.8)
[2019-08-12 09:38] LABS: Chloride 104 mmol/L (98-107); Potassium 3.4 mmoL/L (3.5-5.1); Sodium 138 mmol/L (136-145)
[2019-08-12 09:41] LABS: Alanine Aminotransferase 18 U/L (12-78); Albumin Level 3.4 g/dl (3.5-5.0); Albumin/Globulin Ratio 1.3 (1.1-1.8); Alkaline Phosphatase 81 U/L (38-126); Anion Gap 12.4 mEq/L (5-15); Aspartate Amino Transferase 23 U/L (14-36); Blood Urea Nitrogen 12 mg/dl (7-17); Calcium 8.9 mg/dl (8.4-10.2); Carbon Dioxide 25 mmol/L (22.0-30.0); Creatinine Clearance Estimated 87 mL/min (50-200); Estimated Glomerular Filt Rate 47 ml/min (>60); GFR (African American) 57 ML/MIN (>60); Globulin 2.7 g/dL (1.3-3.2); Glucose 101 mg/dl (74-100); Total Protein,Serum 6.1 g/dl (6.3-8.2)
[2019-08-12 09:45] LABS: Bilirubin,Total 0.1 mg/dl (0.2-1.3)
[2019-08-12 11:00] VITALS: BP 143/61; PULSE 71; RESP 18
[2019-08-12 11:15] VITALS: BP 131/70; PULSE 75; RESP 18
[2019-08-12 11:30] VITALS: BP 152/60; BP 154/72; PULSE 80; PULSE 81; RESP 18
[2019-08-12 12:10] VITALS: BP 152/60; PULSE 81; RESP 18
== END 2019-08-12 12:10 | disposition home or self-care (01) ==
LOC: INF 09:22
PROVIDERS: Visit Provider Internal Medicine Medical Oncology
DX: C81.90 Hodgkin lymphoma, unspecified, unspecified site (principal)
CPT/HCPCS: 80053; 85025; 96360; 96375; J1642; J2405

== ENCOUNTER 2019-08-13 12:21 | Outpatient (CLI) | payer BC, SELFPAY ==
[2019-08-13 11:06] VITALS: BP 141/69; PULSE 68; RESP 18; TEMP 36.9; O2SAT 99
[2019-08-13 12:30] VITALS: BP 138/71; PULSE 72; RESP 18; O2SAT 99
== END 2019-08-13 12:30 | disposition home or self-care (01) ==
LOC: INF 12:21
PROVIDERS: Visit Provider Internal Medicine Medical Oncology
DX: C81.90 Hodgkin lymphoma, unspecified, unspecified site (principal)
CPT/HCPCS: 96360; J1642

== ENCOUNTER 2019-08-16 10:52 | Outpatient (CLI) | payer BC, SELFPAY ==
[2019-08-16 10:52] VITALS: BMI 36.1
[2019-08-16 11:10] VITALS: BP 133/88; PULSE 68; RESP 18; TEMP 36.9; O2SAT 98
[2019-08-16 11:23] LABS: Chloride 98 mmol/L (98-107); Potassium 3.7 mmoL/L (3.5-5.1); Sodium 135 mmol/L (136-145)
[2019-08-16 11:25] LABS: Blood Urea Nitrogen 27 mg/dl (7-17); Creatinine Clearance Estimated 95 mL/min (50-200); Estimated Glomerular Filt Rate 52 ml/min (>60); GFR (African American) 63 ML/MIN (>60)
[2019-08-16 11:26] LABS: Alanine Aminotransferase 23 U/L (12-78); Albumin Level 3.6 g/dl (3.5-5.0); Albumin/Globulin Ratio 1.4 (1.1-1.8); Alkaline Phosphatase 69 U/L (38-126); Anion Gap 13.7 mEq/L (5-15); Aspartate Amino Transferase 24 U/L (14-36); Bilirubin,Total 0.3 mg/dl (0.2-1.3); Calcium 9.2 mg/dl (8.4-10.2); Carbon Dioxide 27 mmol/L (22.0-30.0); Globulin 2.5 g/dL (1.3-3.2); Glucose 115 mg/dl (74-100); Total Protein,Serum 6.1 g/dl (6.3-8.2)
[2019-08-16 11:29] LABS: Basophils # 0.1 K/mm3 (0-0.2); Basophils % 0.6 % (0.1-2.0); Eosinophils # 0.1 K/mm3 (0.0-0.4); Eosinophils % 0.9 % (0.1-12.0); Hematocrit 33.2 % (37.0-47.0); Hemoglobin 10.4 g/dL (12.2-16.2); Lymphocytes # 1.2 K/mm3 (0.7-4.5); Mean Corpuscular HGB Conc 31.2 g/dL (31.8-35.4); Mean Corpuscular Hemoglobin 23.2 pg (27.0-31.2); Mean Corpuscular Volume 74.4 fl (81-99); Mean Platelet Volume 7.8 fl (7.4-10.4); Monocytes # 0.9 K/mm3 (0.1-1.0); Monocytes % 5.8 % (1.7-9.3); Neutrophils # 12.4 K/mm3 (1.8-7.8); Neutrophils % 84.6 % (37.0-80.0); Platelet Count 246 K/mm3 (142-424); Red Blood Count 4.47 M/mm3 (4.20-5.40); White Blood Count 14.6 K/mm3 (4.8-10.8)
[2019-08-16 12:48] VITALS: BP 136/63; PULSE 48; RESP 18
== END 2019-08-16 12:48 | disposition home or self-care (01) ==
LOC: INF 10:52
PROVIDERS: Visit Provider Internal Medicine Medical Oncology
DX: C81.90 Hodgkin lymphoma, unspecified, unspecified site (principal)
CPT/HCPCS: 80053; 85025; 96360; J1642

== ENCOUNTER 2019-08-19 08:22 | Outpatient (CLI) | payer BC, SELFPAY ==
[2019-08-19] VITALS (7 sets, daily range): BP systolic 108–136; BP diastolic 64–82; PULSE 68–88; RESP 18; TEMP 36.4; O2SAT 98–99; BMI 36.1
[2019-08-19 08:44] LABS: Basophils % 0.3 % (0.1-2.0); Eosinophils # 0.2 K/mm3 (0.0-0.4); Eosinophils % 1.1 % (0.1-12.0); Hematocrit 37.3 % (37.0-47.0); Hemoglobin 11.4 g/dL (12.2-16.2); Lymphocytes % 11.7 % (10-50); Mean Corpuscular HGB Conc 30.7 g/dL (31.8-35.4); Mean Corpuscular Hemoglobin 23.6 pg (27.0-31.2); Mean Corpuscular Volume 76.8 fl (81-99); Mean Platelet Volume 8.3 fl (7.4-10.4); Monocytes # 1.2 K/mm3 (0.1-1.0); Neutrophils # 13.4 K/mm3 (1.8-7.8); Neutrophils % 79.9 % (37.0-80.0); Platelet Count 247 K/mm3 (142-424); Red Blood Count 4.85 M/mm3 (4.20-5.40); Red Cell Distribution Width 19.2 % (11.5-17.5); White Blood Count 16.8 K/mm3 (4.8-10.8)
[2019-08-19 08:54] LABS: Chloride 98 mmol/L (98-107); Potassium 3.1 mmoL/L (3.5-5.1); Sodium 135 mmol/L (136-145)
[2019-08-19 08:56] LABS: Blood Urea Nitrogen 29 mg/dl (7-17); Creatinine Clearance Estimated 87 mL/min (50-200); Estimated Glomerular Filt Rate 47 ml/min (>60); GFR (African American) 57 ML/MIN (>60)
[2019-08-19 08:57] LABS: Alanine Aminotransferase 43 U/L (12-78); Albumin Level 3.6 g/dl (3.5-5.0); Albumin/Globulin Ratio 1.4 (1.1-1.8); Alkaline Phosphatase 67 U/L (38-126); Anion Gap 12.1 mEq/L (5-15); Aspartate Amino Transferase 34 U/L (14-36); Bilirubin,Total 0.3 mg/dl (0.2-1.3); Carbon Dioxide 28 mmol/L (22.0-30.0); Globulin 2.5 g/dL (1.3-3.2); Glucose 106 mg/dl (74-100); MANUAL DIFFERENTIAL MANUAL DIFFERENTIAL (MANUAL DIFF); Total Protein,Serum 6.1 g/dl (6.3-8.2)
[2019-08-19 09:15] LABS: Anisocytosis 1+; Lymphocytes % 19 % (10-50); Microcytosis 1+; Monocytes % 13 % (2-9); Neutrophils % 68 % (42-76); Platelet Estimate Normal; Total Cells Counted 100
[2019-08-19 09:16] LABS: Acanthocytes 1+; Hypochromasia 2+; Poikilocytosis 1+
== END 2019-08-19 12:20 | disposition home or self-care (01) ==
LOC: INF 08:22
PROVIDERS: Visit Provider Internal Medicine Medical Oncology
DX: Z51.11 Encounter for antineoplastic chemotherapy (principal); C81.90 Hodgkin lymphoma, unspecified, unspecified site
CPT/HCPCS: 80053; 85007; 85025; 96411; 96413; J1642; J9000; J9040; J9130; J9360; Q0166

== ENCOUNTER 2019-08-20 10:50 | Outpatient (CLI) | payer BC, SELFPAY ==
[2019-08-20 11:00] VITALS: BP 126/77; PULSE 70; RESP 18
[2019-08-20 12:10] VITALS: BP 126/71; PULSE 55; RESP 18
== END 2019-08-20 12:10 | disposition home or self-care (01) ==
LOC: INF 10:54
PROVIDERS: Visit Provider Internal Medicine Medical Oncology
DX: C81.90 Hodgkin lymphoma, unspecified, unspecified site (principal)
CPT/HCPCS: 96360; J1642

== ENCOUNTER 2019-08-23 11:23 | Outpatient (CLI) | payer BC, SELFPAY ==
[2019-08-23 11:23] VITALS: BMI 34.5
[2019-08-23 11:32] VITALS: BP 102/60; PULSE 88; RESP 18; O2SAT 100
[2019-08-23 11:49] LABS: Chloride 97 mmol/L (98-107); Potassium 3.8 mmoL/L (3.5-5.1); Sodium 132 mmol/L (136-145)
[2019-08-23 11:52] LABS: Alanine Aminotransferase 135 U/L (12-78); Albumin Level 3.8 g/dl (3.5-5.0); Albumin/Globulin Ratio 1.5 (1.1-1.8); Alkaline Phosphatase 86 U/L (38-126); Anion Gap 15.8 mEq/L (5-15); Aspartate Amino Transferase 79 U/L (14-36); Blood Urea Nitrogen 29 mg/dl (7-17); Carbon Dioxide 23 mmol/L (22.0-30.0); Creatinine Clearance Estimated 77 mL/min (50-200); Estimated Glomerular Filt Rate 43 ml/min (>60); GFR (African American) 52 ML/MIN (>60); Globulin 2.5 g/dL (1.3-3.2); Total Protein,Serum 6.3 g/dl (6.3-8.2)
[2019-08-23 11:53] LABS: Calcium 9.4 mg/dl (8.4-10.2); Glucose 123 mg/dl (74-100)
[2019-08-23 12:06] LABS: Basophils % 0.1 % (0.1-2.0); Eosinophils % 0.3 % (0.1-12.0); Hematocrit 37.5 % (37.0-47.0); Hemoglobin 11.9 g/dL (12.2-16.2); Lymphocytes # 0.6 K/mm3 (0.7-4.5); Lymphocytes % 10.1 % (10-50); Mean Corpuscular HGB Conc 31.8 g/dL (31.8-35.4); Mean Corpuscular Hemoglobin 23.7 pg (27.0-31.2); Mean Corpuscular Volume 74.7 fl (81-99); Mean Platelet Volume 8.2 fl (7.4-10.4); Monocytes # 0.1 K/mm3 (0.1-1.0); Monocytes % 1.8 % (1.7-9.3); Neutrophils # 5.1 K/mm3 (1.8-7.8); Neutrophils % 87.6 % (37.0-80.0); Platelet Count 92 K/mm3 (142-424); Red Blood Count 5.02 M/mm3 (4.20-5.40); Red Cell Distribution Width 19.1 % (11.5-17.5); White Blood Count 5.8 K/mm3 (4.8-10.8)
[2019-08-23 12:19] LABS: MANUAL DIFFERENTIAL MANUAL DIFFERENTIAL (MANUAL DIFF)
[2019-08-23 12:23] LABS: Lymphocytes % 6 % (10-50); Monocytes % 1 % (2-9); Neutrophils % 93 % (42-76); Platelet Estimate Marked Decrease; Total Cells Counted 100
[2019-08-23 12:24] LABS: RBC Morphology Normal
[2019-08-23 12:40] VITALS: BP 130/60; PULSE 83; RESP 18; O2SAT 100
== END 2019-08-23 12:40 | disposition home or self-care (01) ==
LOC: INF 11:23
PROVIDERS: Visit Provider Internal Medicine Medical Oncology
DX: C81.90 Hodgkin lymphoma, unspecified, unspecified site
CPT/HCPCS: 80053; 85007; 85025; 96360; J1642

== ENCOUNTER 2019-08-26 08:37 | Outpatient (CLI) | payer BC, SELFPAY ==
[2019-08-26 08:39] VITALS: BMI 34.5
[2019-08-26 08:55] LABS: Basophils % 1.8 % (0.1-2.0); Eosinophils % 2.9 % (0.1-12.0); Hematocrit 34.1 % (37.0-47.0); Hemoglobin 10.8 g/dL (12.2-16.2); Lymphocytes # 0.4 K/mm3 (0.7-4.5); Mean Corpuscular HGB Conc 31.6 g/dL (31.8-35.4); Mean Corpuscular Hemoglobin 23.7 pg (27.0-31.2); Mean Corpuscular Volume 75.1 fl (81-99); Mean Platelet Volume 11.1 fl (7.4-10.4); Monocytes % 2.9 % (1.7-9.3); Neutrophils # 0.4 K/mm3 (1.8-7.8); Neutrophils % 45.5 % (37.0-80.0); Platelet Count 92 K/mm3 (142-424); Red Blood Count 4.55 M/mm3 (4.20-5.40)
[2019-08-26 08:59] LABS: Chloride 94 mmol/L (98-107); Potassium 3.6 mmoL/L (3.5-5.1); Sodium 130 mmol/L (136-145)
[2019-08-26 09:02] LABS: Alanine Aminotransferase 139 U/L (12-78); Albumin Level 3.8 g/dl (3.5-5.0); Albumin/Globulin Ratio 1.4 (1.1-1.8); Alkaline Phosphatase 116 U/L (38-126); Anion Gap 16.6 mEq/L (5-15); Aspartate Amino Transferase 68 U/L (14-36); Bilirubin,Total 0.7 mg/dl (0.2-1.3); Blood Urea Nitrogen 22 mg/dl (7-17); Carbon Dioxide 23 mmol/L (22.0-30.0); Creatinine Clearance Estimated 77 mL/min (50-200); Estimated Glomerular Filt Rate 43 ml/min (>60); GFR (African American) 52 ML/MIN (>60); Globulin 2.7 g/dL (1.3-3.2); Total Protein,Serum 6.5 g/dl (6.3-8.2); White Blood Count 0.8 K/mm3 (4.8-10.8)
[2019-08-26 09:03] LABS: Calcium 9.2 mg/dl (8.4-10.2); Glucose 119 mg/dl (74-100); MANUAL DIFFERENTIAL MANUAL DIFFERENTIAL (MANUAL DIFF)
[2019-08-26 09:28] LABS: Hypochromasia 1+; Lymphocytes % 54 % (10-50); Monocytes % 10 % (2-9); Neutrophils % 36 % (42-76); Platelet Estimate Marked Decrease; Total Cells Counted 50
[2019-08-26 09:50] VITALS: BP 110/64; PULSE 93; RESP 18; TEMP 36.6; O2SAT 98
[2019-08-26 10:20] VITALS: BP 108/68; PULSE 91; RESP 18; O2SAT 97
[2019-08-26 10:50] VITALS: BP 111/66; PULSE 90; RESP 18; O2SAT 98
== END 2019-08-26 10:50 | disposition home or self-care (01) ==
LOC: INF 08:37
PROVIDERS: Visit Provider Internal Medicine Medical Oncology
DX: C81.90 Hodgkin lymphoma, unspecified, unspecified site (principal)
CPT/HCPCS: 80053; 85007; 85025; 96360; 96375; J1642; J2405

== ENCOUNTER 2019-08-27 11:04 | Outpatient (CLI) | payer BC, SELFPAY ==
[2019-08-27 11:10] VITALS: BP 92/67; PULSE 80; RESP 18; TEMP 36.6
[2019-08-27 12:15] VITALS: BP 122/62; PULSE 61; RESP 18
== END 2019-08-27 12:15 | disposition home or self-care (01) ==
LOC: INF 11:04
PROVIDERS: Visit Provider Internal Medicine Medical Oncology
DX: C81.90 Hodgkin lymphoma, unspecified, unspecified site (principal)
CPT/HCPCS: 96360; 96375; J1642; J2405

== ENCOUNTER 2019-08-30 11:11 | Outpatient (CLI) | payer BC, SELFPAY ==
[2019-08-30 11:25] VITALS: BMI 34.5
[2019-08-30 11:38] VITALS: BP 89/58; PULSE 103; RESP 22; TEMP 36.5; O2SAT 96
[2019-08-30 11:46] LABS: Basophils % 1.7 % (0.1-2.0); Eosinophils % 1.6 % (0.1-12.0); Hematocrit 34.2 % (37.0-47.0); Hemoglobin 10.8 g/dL (12.2-16.2); Lymphocytes # 0.7 K/mm3 (0.7-4.5); Lymphocytes % 67.1 % (10-50); Mean Corpuscular HGB Conc 31.7 g/dL (31.8-35.4); Mean Corpuscular Hemoglobin 23.7 pg (27.0-31.2); Mean Corpuscular Volume 74.9 fl (81-99); Mean Platelet Volume 9.1 fl (7.4-10.4); Monocytes # 0.1 K/mm3 (0.1-1.0); Monocytes % 10.5 % (1.7-9.3); Neutrophils # 0.2 K/mm3 (1.8-7.8); Neutrophils % 19.2 % (37.0-80.0); Platelet Count 192 K/mm3 (142-424); Red Blood Count 4.57 M/mm3 (4.20-5.40); Red Cell Distribution Width 19.2 % (11.5-17.5)
[2019-08-30 11:48] LABS: Chloride 92 mmol/L (98-107); Potassium 3.5 mmoL/L (3.5-5.1); Sodium 127 mmol/L (136-145)
[2019-08-30 11:50] LABS: Alanine Aminotransferase 60 U/L (12-78); Blood Urea Nitrogen 21 mg/dl (7-17); Creatinine Clearance Estimated 91 mL/min (50-200); Estimated Glomerular Filt Rate 52 ml/min (>60); GFR (African American) 63 ML/MIN (>60)
[2019-08-30 11:51] LABS: Albumin Level 3.6 g/dl (3.5-5.0); Albumin/Globulin Ratio 1.4 (1.1-1.8); Alkaline Phosphatase 92 U/L (38-126); Anion Gap 13.5 mEq/L (5-15); Aspartate Amino Transferase 25 U/L (14-36); Bilirubin,Total 0.8 mg/dl (0.2-1.3); Calcium 9.3 mg/dl (8.4-10.2); Carbon Dioxide 25 mmol/L (22.0-30.0); Globulin 2.6 g/dL (1.3-3.2); Glucose 107 mg/dl (74-100); Total Protein,Serum 6.2 g/dl (6.3-8.2)
[2019-08-30 12:02] LABS: MANUAL DIFFERENTIAL MANUAL DIFFERENTIAL (MANUAL DIFF)
[2019-08-30 12:08] VITALS: BP 92/59; PULSE 99; RESP 22; O2SAT 97
[2019-08-30 12:37] LABS: Eosinophils % 4 % (0-3); Lymphocytes % 68 % (10-50); Monocytes % 8 % (2-9); Neutrophils % 20 % (42-76); Total Cells Counted 25
[2019-08-30 12:38] VITALS: BP 91/55; PULSE 101; RESP 20; O2SAT 96
[2019-08-30 12:40] LABS: Hypochromasia 2+; Platelet Estimate Moderate Increase
== END 2019-08-30 12:40 | disposition home or self-care (01) ==
LOC: INF 11:11
PROVIDERS: Visit Provider Internal Medicine Medical Oncology
DX: C81.90 Hodgkin lymphoma, unspecified, unspecified site (principal)
CPT/HCPCS: 80053; 85007; 85025; 96360; 96375; J1642; J2405

== ENCOUNTER 2019-09-02 11:34 | Outpatient (CLI) | payer BC, SELFPAY ==
[2019-09-02 11:36] VITALS: BMI 34.5
[2019-09-02 12:02] LABS: Alanine Aminotransferase 32 U/L (12-78); Albumin Level 3.5 g/dl (3.5-5.0); Albumin/Globulin Ratio 1.3 (1.1-1.8); Alkaline Phosphatase 82 U/L (38-126); Anion Gap 11.5 mEq/L (5-15); Aspartate Amino Transferase 22 U/L (14-36); Bilirubin,Total 0.5 mg/dl (0.2-1.3); Blood Urea Nitrogen 22 mg/dl (7-17); Calcium 9.3 mg/dl (8.4-10.2); Carbon Dioxide 27 mmol/L (22.0-30.0); Chloride 93 mmol/L (98-107); Creatinine Clearance Estimated 71 mL/min (50-200); Estimated Glomerular Filt Rate 39 ml/min (>60); GFR (African American) 48 ML/MIN (>60); Globulin 2.8 g/dL (1.3-3.2); Glucose 124 mg/dl (74-100); Potassium 3.5 mmoL/L (3.5-5.1); Sodium 128 mmol/L (136-145); Total Protein,Serum 6.3 g/dl (6.3-8.2)
[2019-09-02 12:03] LABS: Basophils # 0.1 K/mm3 (0-0.2); Basophils % 1.2 % (0.1-2.0); Eosinophils % 0.4 % (0.1-12.0); Hematocrit 35.4 % (37.0-47.0); Hemoglobin 11.2 g/dL (12.2-16.2); Lymphocytes # 1.5 K/mm3 (0.7-4.5); Lymphocytes % 14.1 % (10-50); Mean Corpuscular HGB Conc 31.7 g/dL (31.8-35.4); Mean Platelet Volume 8.4 fl (7.4-10.4); Monocytes # 1.1 K/mm3 (0.1-1.0); Neutrophils # 7.9 K/mm3 (1.8-7.8); Neutrophils % 74.3 % (37.0-80.0); Platelet Count 355 K/mm3 (142-424); Red Blood Count 4.66 M/mm3 (4.20-5.40); Red Cell Distribution Width 19.7 % (11.5-17.5); White Blood Count 10.6 K/mm3 (4.8-10.8)
[2019-09-02 12:40] VITALS: BP 110/65; PULSE 95; RESP 20; TEMP 36.2; O2SAT 96
--- NOTE | 2019-09-02 12:41 | XR_ITS ---
PROCEDURE: XR CHEST PORTABLE CLINICAL HISTORY: cough Cough, getting chemotherapy COMPARISON: CXR CHEST(2 VIEWS-NOT PORTABLE) from 09/19/2015 XR CHEST 2V from 02/04/2019 XR CHEST PORTABLE from 07/01/2019 FINDINGS: Unremarkable cardiovascular structures. A left subclavian MediPort catheter is present with tip in the region the SVC. There are low lung volumes with patchy density in both lung bases. This may only be due to some mild atelectatic change/vascular crowding. Cannot exclude underlying infiltrate in the right lung base. Upper lobes are clear. No acute bony abnormalities. IMPRESSION: Low lung volumes with mild bibasilar atelectasis and possible patchy infiltrate in the right lung base Dictated by: Kristian Rick MD 09/02/2019 13:12 Electronically signed by Kristian Rick MD in [place] 09/02/2019 13:12
[2019-09-02 14:05] VITALS: BP 100/56; PULSE 90; RESP 20; TEMP 36.7; O2SAT 96
--- NOTE | 2019-09-02 14:05 | PC.NURSE ---
1230-notified md of pt's cough she had had for 3-4 days,pt reports no fever,and states she has not traveled. md orders include give 1 liter ns bolus; portable chest xray and call with results. pt was asked to keep her mask on and moved to a more secluded room with a door; nurse donned proper ppe for patient care. 1241-rn assisted with [employer] for portable chest xray. 1340-notified md of chest xray report; new orders to call in levaquin 750mg po for 7 days for pt and no chemo treatment tomorrow will see md next week 09/09/19
== END 2019-09-02 14:05 | disposition home or self-care (01) ==
LOC: INF 11:34
PROVIDERS: PCP Nurse Practitioner Family; Visit Provider Internal Medicine Medical Oncology
DX: C81.90 Hodgkin lymphoma, unspecified, unspecified site (principal)
CPT/HCPCS: 71045; 80053; 85025; 96360; J1642

== ENCOUNTER 2019-09-09 08:10 | Outpatient (CLI) | payer BC, SELFPAY ==
[2019-09-09 08:11] VITALS: BMI 34.5
[2019-09-09 08:26] LABS: Basophils % 0.4 % (0.1-2.0); Eosinophils # 0.1 K/mm3 (0.0-0.4); Hematocrit 32.7 % (37.0-47.0); Hemoglobin 10.1 g/dL (12.2-16.2); Lymphocytes % 8.4 % (10-50); Mean Corpuscular Volume 77.3 fl (81-99); Mean Platelet Volume 8.5 fl (7.4-10.4); Monocytes # 0.9 K/mm3 (0.1-1.0); Monocytes % 7.6 % (1.7-9.3); Neutrophils # 10.1 K/mm3 (1.8-7.8); Neutrophils % 82.6 % (37.0-80.0); Platelet Count 145 K/mm3 (142-424); Red Blood Count 4.23 M/mm3 (4.20-5.40); Red Cell Distribution Width 20.2 % (11.5-17.5); White Blood Count 12.2 K/mm3 (4.8-10.8)
[2019-09-09 08:33] LABS: Alanine Aminotransferase 17 U/L (12-78); Alkaline Phosphatase 77 U/L (38-126); Aspartate Amino Transferase 21 U/L (14-36); Bilirubin,Total 0.5 mg/dl (0.2-1.3); Blood Urea Nitrogen 13 mg/dl (7-17); Creatinine Clearance Estimated 66 mL/min (50-200); Estimated Glomerular Filt Rate 36 ml/min (>60); GFR (African American) 44 ML/MIN (>60)
[2019-09-09 08:34] LABS: Albumin Level 3.3 g/dl (3.5-5.0); Albumin/Globulin Ratio 1.1 (1.1-1.8); Calcium 8.8 mg/dl (8.4-10.2); Globulin 2.9 g/dL (1.3-3.2); Glucose 100 mg/dl (74-100); Total Protein,Serum 6.2 g/dl (6.3-8.2)
[2019-09-09 08:41] LABS: Anion Gap 17.5 mEq/L (5-15)
[2019-09-09 08:42] LABS: Carbon Dioxide 23 mmol/L (22.0-30.0); Chloride 89 mmol/L (98-107); Potassium 3.5 mmoL/L (3.5-5.1); Sodium 126 mmol/L (136-145)
[2019-09-09 09:30] VITALS: BP 146/101; PULSE 93; RESP 20; TEMP 37.1
[2019-09-09 10:40] VITALS: BP 91/59; PULSE 90; RESP 20
== END 2019-09-09 10:40 | disposition home or self-care (01) ==
LOC: INF 08:10
PROVIDERS: Visit Provider Internal Medicine Medical Oncology
DX: Z51.11 Encounter for antineoplastic chemotherapy (principal); C81.90 Hodgkin lymphoma, unspecified, unspecified site
CPT/HCPCS: 80053; 85025; 96360; 96375; J1642

== ENCOUNTER 2019-09-13 10:48 | Outpatient (CLI) | payer BC, SELFPAY ==
[2019-09-13 11:03] VITALS: BMI 34.5
[2019-09-13 11:05] VITALS: BP 97/56; PULSE 118; RESP 20; TEMP 36.3; O2SAT 97
[2019-09-13 11:24] LABS: Basophils % 0.3 % (0.1-2.0); Eosinophils % 0.3 % (0.1-12.0); Hematocrit 32.7 % (37.0-47.0); Hemoglobin 9.9 g/dL (12.2-16.2); Lymphocytes # 1.2 K/mm3 (0.7-4.5); Lymphocytes % 10.6 % (10-50); Mean Corpuscular HGB Conc 30.3 g/dL (31.8-35.4); Mean Corpuscular Hemoglobin 23.6 pg (27.0-31.2); Mean Platelet Volume 7.9 fl (7.4-10.4); Monocytes # 0.8 K/mm3 (0.1-1.0); Monocytes % 7.3 % (1.7-9.3); Neutrophils # 8.9 K/mm3 (1.8-7.8); Neutrophils % 81.5 % (37.0-80.0); Platelet Count 154 K/mm3 (142-424); Red Blood Count 4.19 M/mm3 (4.20-5.40); Red Cell Distribution Width 20.8 % (11.5-17.5); White Blood Count 10.9 K/mm3 (4.8-10.8)
[2019-09-13 11:35] VITALS: BP 94/59; PULSE 115; RESP 20; O2SAT 98
[2019-09-13 11:50] LABS: Alanine Aminotransferase 14 U/L (12-78); Albumin Level 3.4 g/dl (3.5-5.0); Albumin/Globulin Ratio 1.3 (1.1-1.8); Alkaline Phosphatase 66 U/L (38-126); Aspartate Amino Transferase 20 U/L (14-36); Bilirubin,Total 0.5 mg/dl (0.2-1.3); Blood Urea Nitrogen 22 mg/dl (7-17); Creatinine Clearance Estimated 83 mL/min (50-200); Estimated Glomerular Filt Rate 47 ml/min (>60); GFR (African American) 57 ML/MIN (>60); Globulin 2.7 g/dL (1.3-3.2); Total Protein,Serum 6.1 g/dl (6.3-8.2)
[2019-09-13 11:51] LABS: Glucose 101 mg/dl (74-100)
[2019-09-13 12:00] VITALS: BP 161/88; PULSE 63; RESP 18; O2SAT 97
[2019-09-13 12:19] LABS: Anion Gap 14.3 mEq/L (5-15); Carbon Dioxide 26 mmol/L (22.0-30.0); Chloride 95 mmol/L (98-107); Potassium 3.3 mmoL/L (3.5-5.1); Sodium 132 mmol/L (136-145)
== END 2019-09-13 12:00 | disposition home or self-care (01) ==
LOC: INF 10:48
PROVIDERS: Visit Provider Internal Medicine Medical Oncology
DX: C81.90 Hodgkin lymphoma, unspecified, unspecified site (principal)
CPT/HCPCS: 80053; 85025; 96360; 96375; J1642

== ENCOUNTER 2019-09-16 09:04 | Outpatient (CLI) | payer BC, SELFPAY ==
[2019-09-16 09:20] VITALS: BMI 32.1
[2019-09-16 09:41] LABS: Basophils % 0.2 % (0.1-2.0); Eosinophils # 0.1 K/mm3 (0.0-0.4); Eosinophils % 0.8 % (0.1-12.0); Lymphocytes # 1.3 K/mm3 (0.7-4.5); Lymphocytes % 12.7 % (10-50); Mean Corpuscular HGB Conc 30.9 g/dL (31.8-35.4); Mean Corpuscular Hemoglobin 24.3 pg (27.0-31.2); Mean Corpuscular Volume 78.4 fl (81-99); Monocytes # 0.9 K/mm3 (0.1-1.0); Monocytes % 8.8 % (1.7-9.3); Neutrophils % 77.5 % (37.0-80.0); Platelet Count 208 K/mm3 (142-424); White Blood Count 10.3 K/mm3 (4.8-10.8)
[2019-09-16 09:42] LABS: Chloride 98 mmol/L (98-107)
[2019-09-16 09:43] LABS: Hematocrit 31.5 % (37.0-47.0); Hemoglobin 9.8 g/dL (12.2-16.2); Potassium 3.3 mmoL/L (3.5-5.1); Red Blood Count 4.02 M/mm3 (4.20-5.40); Sodium 132 mmol/L (136-145)
[2019-09-16 09:45] LABS: Alanine Aminotransferase 14 U/L (12-78); Aspartate Amino Transferase 22 U/L (14-36); Blood Urea Nitrogen 22 mg/dl (7-17); Creatinine Clearance Estimated 93 mL/min (50-200); Estimated Glomerular Filt Rate 58 ml/min (>60); GFR (African American) 70 ML/MIN (>60)
[2019-09-16 09:46] LABS: Albumin Level 3.3 g/dl (3.5-5.0); Albumin/Globulin Ratio 1.1 (1.1-1.8); Alkaline Phosphatase 64 U/L (38-126); Anion Gap 10.3 mEq/L (5-15); Bilirubin,Total 0.6 mg/dl (0.2-1.3); Calcium 9.3 mg/dl (8.4-10.2); Carbon Dioxide 27 mmol/L (22.0-30.0); Globulin 2.9 g/dL (1.3-3.2); Glucose 96 mg/dl (74-100); Total Protein,Serum 6.2 g/dl (6.3-8.2)
[2019-09-16 10:50] VITALS: BP 92/55; PULSE 80; RESP 18; TEMP 36.7; O2SAT 97
[2019-09-16 11:20] VITALS: BP 93/60; PULSE 87; RESP 18
[2019-09-16 11:50] VITALS: BP 98/50; PULSE 84; RESP 18
== END 2019-09-16 12:05 | disposition home or self-care (01) ==
LOC: INF 09:19
PROVIDERS: Visit Provider Internal Medicine Medical Oncology
DX: C81.90 Hodgkin lymphoma, unspecified, unspecified site (principal); Z45.2 Encounter for adjustment and management of vascular access device
CPT/HCPCS: 80053; 85025; 96360; J1642

== ENCOUNTER 2019-09-20 11:01 | Outpatient (CLI) | payer BC, SELFPAY ==
[2019-09-20 11:08] VITALS: BP 109/58; PULSE 102; RESP 18; O2SAT 97
[2019-09-20 12:10] VITALS: BP 111/62; PULSE 92; RESP 20; O2SAT 97
== END 2019-09-20 12:05 | disposition home or self-care (01) ==
LOC: INF 11:01
PROVIDERS: Visit Provider Internal Medicine Medical Oncology
DX: C81.91 Hodgkin lymphoma, unspecified, lymph nodes of head, face, and neck (principal)
CPT/HCPCS: 96360; J1642

== ENCOUNTER 2019-09-23 08:32 | Outpatient (CLI) | payer BC, SELFPAY ==
[2019-09-23 08:34] VITALS: BMI 32.1
[2019-09-23 08:53] LABS: Basophils % 0.6 % (0.1-2.0); Eosinophils # 0.1 K/mm3 (0.0-0.4); Eosinophils % 1.7 % (0.1-12.0); Hematocrit 30.7 % (37.0-47.0); Hemoglobin 9.5 g/dL (12.2-16.2); Lymphocytes # 0.8 K/mm3 (0.7-4.5); Lymphocytes % 17.9 % (10-50); Mean Corpuscular HGB Conc 30.8 g/dL (31.8-35.4); Mean Corpuscular Hemoglobin 24.6 pg (27.0-31.2); Mean Corpuscular Volume 79.9 fl (81-99); Monocytes # 0.4 K/mm3 (0.1-1.0); Monocytes % 7.8 % (1.7-9.3); Neutrophils # 3.3 K/mm3 (1.8-7.8); Neutrophils % 71.9 % (37.0-80.0); Platelet Count 153 K/mm3 (142-424); Red Blood Count 3.84 M/mm3 (4.20-5.40); White Blood Count 4.6 K/mm3 (4.8-10.8)
[2019-09-23 08:56] LABS: Alanine Aminotransferase 13 U/L (12-78); Albumin Level 3.4 g/dl (3.5-5.0); Albumin/Globulin Ratio 1.1 (1.1-1.8); Alkaline Phosphatase 69 U/L (38-126); Anion Gap 19.8 mEq/L (5-15); Aspartate Amino Transferase 24 U/L (14-36); Bilirubin,Total 0.5 mg/dl (0.2-1.3); Blood Urea Nitrogen 16 mg/dl (7-17); Calcium 9.3 mg/dl (8.4-10.2); Carbon Dioxide 21 mmol/L (22.0-30.0); Chloride 95 mmol/L (98-107); Creatinine Clearance Estimated 103 mL/min (50-200); Estimated Glomerular Filt Rate 65 ml/min (>60); GFR (African American) 79 ML/MIN (>60); Glucose 74 mg/dl (74-100); Sodium 133 mmol/L (136-145); Total Protein,Serum 6.4 g/dl (6.3-8.2)
[2019-09-23 09:00] LABS: Potassium 2.8 mmoL/L (3.5-5.1)
[2019-09-23 11:25] VITALS: BP 108/70; PULSE 79; RESP 20; TEMP 36.8; O2SAT 98
[2019-09-23 11:55] VITALS: BP 111/57; PULSE 80; RESP 20
[2019-09-23 12:25] VITALS: BP 106/68; PULSE 78; RESP 20
[2019-09-23 12:55] VITALS: BP 118/44; PULSE 76; RESP 20
[2019-09-23 13:30] VITALS: BP 124/72; PULSE 74; RESP 20
== END 2019-09-23 13:30 | disposition home or self-care (01) ==
LOC: INF 08:32
PROVIDERS: Visit Provider Internal Medicine Medical Oncology
DX: C81.90 Hodgkin lymphoma, unspecified, unspecified site (principal); Z45.2 Encounter for adjustment and management of vascular access device
CPT/HCPCS: 80053; 85025; 96360; 96361; J1642

== ENCOUNTER 2019-10-07 10:45 | Outpatient (CLI) | payer BC, SELFPAY ==
[2019-10-07 10:54] VITALS: BMI 31.0
[2019-10-07 10:55] VITALS: BP 97/53; PULSE 70; RESP 20; TEMP 36.8; O2SAT 100
[2019-10-07 11:08] LABS: Basophils # 0.1 K/mm3 (0-0.2); Basophils % 0.7 % (0.1-2.0); Eosinophils # 0.1 K/mm3 (0.0-0.4); Eosinophils % 1.1 % (0.1-12.0); Hematocrit 35.8 % (37.0-47.0); Hemoglobin 11.2 g/dL (12.2-16.2); Lymphocytes # 1.2 K/mm3 (0.7-4.5); Lymphocytes % 16.6 % (10-50); Mean Corpuscular HGB Conc 31.2 g/dL (31.8-35.4); Mean Corpuscular Volume 86.6 fl (81-99); Mean Platelet Volume 9.9 fl (7.4-10.4); Monocytes # 0.6 K/mm3 (0.1-1.0); Monocytes % 7.9 % (1.7-9.3); Neutrophils # 5.2 K/mm3 (1.8-7.8); Neutrophils % 73.8 % (37.0-80.0); Platelet Count 120 K/mm3 (142-424); Red Blood Count 4.13 M/mm3 (4.20-5.40); Red Cell Distribution Width 21.8 % (11.5-17.5)
[2019-10-07 11:12] LABS: Chloride 99 mmol/L (98-107); Potassium 4.3 mmoL/L (3.5-5.1); Sodium 133 mmol/L (136-145)
[2019-10-07 11:15] LABS: Alanine Aminotransferase 22 U/L (12-78); Albumin Level 3.5 g/dl (3.5-5.0); Albumin/Globulin Ratio 1.2 (1.1-1.8); Alkaline Phosphatase 111 U/L (38-126); Anion Gap 16.3 mEq/L (5-15); Aspartate Amino Transferase 29 U/L (14-36); Bilirubin,Total 0.6 mg/dl (0.2-1.3); Blood Urea Nitrogen 27 mg/dl (7-17); Carbon Dioxide 22 mmol/L (22.0-30.0); Creatinine Clearance Estimated 75 mL/min (50-200); Estimated Glomerular Filt Rate 47 ml/min (>60); GFR (African American) 57 ML/MIN (>60); Globulin 2.9 g/dL (1.3-3.2); Glucose 101 mg/dl (74-100); Total Protein,Serum 6.4 g/dl (6.3-8.2)
[2019-10-07 11:16] LABS: Calcium 9.6 mg/dl (8.4-10.2)
== END 2019-10-07 11:35 | disposition home or self-care (01) ==
LOC: INF 10:51
PROVIDERS: Visit Provider Internal Medicine Medical Oncology
DX: Z45.2 Encounter for adjustment and management of vascular access device (principal); C81.90 Hodgkin lymphoma, unspecified, unspecified site
CPT/HCPCS: 80053; 85025; J1642

== ENCOUNTER 2019-10-15 11:33 | Outpatient (CLI) | payer BC, SELFPAY ==
[2019-10-15 11:38] VITALS: BMI 31.0
[2019-10-15 11:52] VITALS: BP 92/54; PULSE 77; RESP 18; TEMP 36.6; O2SAT 98
[2019-10-15 11:58] LABS: Basophils % 0.4 % (0.1-2.0); Eosinophils # 0.1 K/mm3 (0.0-0.4); Eosinophils % 1.2 % (0.1-12.0); Hematocrit 34.6 % (37.0-47.0); Hemoglobin 11.1 g/dL (12.2-16.2); Lymphocytes # 1.3 K/mm3 (0.7-4.5); Lymphocytes % 17.8 % (10-50); Mean Corpuscular HGB Conc 32.2 g/dL (31.8-35.4); Mean Corpuscular Hemoglobin 27.7 pg (27.0-31.2); Mean Corpuscular Volume 86.1 fl (81-99); Mean Platelet Volume 9.7 fl (7.4-10.4); Monocytes # 0.4 K/mm3 (0.1-1.0); Monocytes % 5.8 % (1.7-9.3); Neutrophils # 5.4 K/mm3 (1.8-7.8); Neutrophils % 74.8 % (37.0-80.0); Platelet Count 152 K/mm3 (142-424); Red Blood Count 4.01 M/mm3 (4.20-5.40); Red Cell Distribution Width 19.4 % (11.5-17.5); White Blood Count 7.3 K/mm3 (4.8-10.8)
[2019-10-15 12:05] LABS: Alanine Aminotransferase 19 U/L (12-78); Albumin Level 3.7 g/dl (3.5-5.0); Albumin/Globulin Ratio 1.2 (1.1-1.8); Alkaline Phosphatase 173 U/L (38-126); Anion Gap 11.8 mEq/L (5-15); Aspartate Amino Transferase 28 U/L (14-36); Bilirubin,Total 0.4 mg/dl (0.2-1.3); Blood Urea Nitrogen 42 mg/dl (7-17); Calcium 9.8 mg/dl (8.4-10.2); Carbon Dioxide 25 mmol/L (22.0-30.0); Chloride 99 mmol/L (98-107); Creatinine Clearance Estimated 90 mL/min (50-200); Estimated Glomerular Filt Rate 58 ml/min (>60); GFR (African American) 70 ML/MIN (>60); Globulin 3.1 g/dL (1.3-3.2); Glucose 88 mg/dl (74-100); Potassium 4.8 mmoL/L (3.5-5.1); Sodium 131 mmol/L (136-145); Total Protein,Serum 6.8 g/dl (6.3-8.2)
--- NOTE | 2019-10-15 12:17 | PC.NURSE ---
contacted bing freeman rn in oncology clinic, notified of pt being here at the infusion center and that lab results were back. was in a room currently seeing a pt and would be notified and then be up to see the pt.
--- NOTE | 2019-10-15 14:15 | PC.NURSE ---
131domenica up to visit pt at this time. after reviewing lab results and conversing with the pt, no new orders were noted. pt ok to be d/c'd home and appt made to return in 2 weeks.
== END 2019-10-15 13:20 | disposition home or self-care (01) ==
LOC: INF 11:33
PROVIDERS: Visit Provider Internal Medicine Medical Oncology
DX: C81.90 Hodgkin lymphoma, unspecified, unspecified site (principal)
CPT/HCPCS: 80053; 85025; J1642

== ENCOUNTER 2019-10-28 10:13 | Outpatient (CLI) | payer BC, SELFPAY ==
[2019-10-28 10:15] VITALS: BMI 31.2
[2019-10-28 10:20] VITALS: BP 84/52; PULSE 79; RESP 18; TEMP 36.4; O2SAT 99
--- NOTE | 2019-10-28 10:21 | PC.NURSE ---
in at bs to visit pt for appt
[2019-10-28 10:42] LABS: Basophils % 0.4 % (0.1-2.0); Eosinophils # 0.1 K/mm3 (0.0-0.4); Eosinophils % 0.9 % (0.1-12.0); Hematocrit 34.9 % (37.0-47.0); Hemoglobin 10.9 g/dL (12.2-16.2); Lymphocytes # 1.1 K/mm3 (0.7-4.5); Lymphocytes % 13.9 % (10-50); Mean Corpuscular HGB Conc 31.1 g/dL (31.8-35.4); Mean Corpuscular Hemoglobin 27.4 pg (27.0-31.2); Mean Platelet Volume 9.8 fl (7.4-10.4); Monocytes # 0.6 K/mm3 (0.1-1.0); Monocytes % 7.5 % (1.7-9.3); Neutrophils # 6.3 K/mm3 (1.8-7.8); Neutrophils % 77.2 % (37.0-80.0); Platelet Count 173 K/mm3 (142-424); Red Blood Count 3.96 M/mm3 (4.20-5.40); Red Cell Distribution Width 18.9 % (11.5-17.5); White Blood Count 8.1 K/mm3 (4.8-10.8)
[2019-10-28 10:43] LABS: Chloride 99 mmol/L (98-107); Sodium 133 mmol/L (136-145)
[2019-10-28 10:44] LABS: Potassium 4.6 mmoL/L (3.5-5.1)
[2019-10-28 10:46] LABS: Alanine Aminotransferase 32 U/L (12-78); Albumin/Globulin Ratio 1.3 (1.1-1.8); Alkaline Phosphatase 196 U/L (38-126); Anion Gap 11.6 mEq/L (5-15); Aspartate Amino Transferase 25 U/L (14-36); Bilirubin,Total 0.3 mg/dl (0.2-1.3); Blood Urea Nitrogen 40 mg/dl (7-17); Carbon Dioxide 27 mmol/L (22.0-30.0); Creatinine Clearance Estimated 90 mL/min (50-200); Estimated Glomerular Filt Rate 58 ml/min (>60); GFR (African American) 70 ML/MIN (>60)
[2019-10-28 10:47] LABS: Glucose 111 mg/dl (74-100)
== END 2019-10-28 10:55 | disposition home or self-care (01) ==
LOC: INF 10:13
PROVIDERS: Visit Provider Internal Medicine Medical Oncology
DX: C81.90 Hodgkin lymphoma, unspecified, unspecified site (principal); Z45.2 Encounter for adjustment and management of vascular access device
CPT/HCPCS: 80053; 85025; J1642

== ENCOUNTER 2019-11-12 10:04 | Outpatient (CLI) | payer BC, SELFPAY ==
[2019-11-12 10:06] VITALS: BMI 32.1
[2019-11-12 10:23] LABS: Basophils # 0.1 K/mm3 (0-0.2); Basophils % 0.8 % (0.1-2.0); Eosinophils # 0.1 K/mm3 (0.0-0.4); Eosinophils % 1.5 % (0.1-12.0); Hematocrit 34.3 % (37.0-47.0); Hemoglobin 11.6 g/dL (12.2-16.2); Lymphocytes # 1.1 K/mm3 (0.7-4.5); Mean Corpuscular HGB Conc 33.9 g/dL (31.8-35.4); Mean Corpuscular Hemoglobin 30.5 pg (27.0-31.2); Mean Corpuscular Volume 90.1 fl (81-99); Mean Platelet Volume 9.4 fl (7.4-10.4); Monocytes # 0.4 K/mm3 (0.1-1.0); Monocytes % 6.1 % (1.7-9.3); Neutrophils # 5.1 K/mm3 (1.8-7.8); Neutrophils % 75.6 % (37.0-80.0); Platelet Count 149 K/mm3 (142-424); Red Cell Distribution Width 16.2 % (11.5-17.5); White Blood Count 6.8 K/mm3 (4.8-10.8)
[2019-11-12 10:34] LABS: Alanine Aminotransferase 35 U/L (12-78); Albumin Level 4.6 g/dl (3.5-5.0); Albumin/Globulin Ratio 1.4 (1.1-1.8); Alkaline Phosphatase 98 U/L (38-126); Anion Gap 13.6 mEq/L (5-15); Aspartate Amino Transferase 42 U/L (14-36); Bilirubin,Total 0.2 mg/dl (0.2-1.3); Blood Urea Nitrogen 43 mg/dl (7-17); Carbon Dioxide 29 mmol/L (22.0-30.0); Chloride 99 mmol/L (98-107); Creatinine Clearance Estimated 82 mL/min (50-200); Estimated Glomerular Filt Rate 52 ml/min (>60); GFR (African American) 63 ML/MIN (>60); Globulin 3.3 g/dL (1.3-3.2); Glucose 103 mg/dl (74-100); Potassium 4.6 mmoL/L (3.5-5.1); Sodium 137 mmol/L (136-145); Total Protein,Serum 7.9 g/dl (6.3-8.2)
== END 2019-11-12 11:30 | disposition home or self-care (01) ==
LOC: INF 10:04
PROVIDERS: Visit Provider Internal Medicine Medical Oncology
DX: C81.90 Hodgkin lymphoma, unspecified, unspecified site (principal); Z45.2 Encounter for adjustment and management of vascular access device
CPT/HCPCS: 80053; 85025; J1642

== ENCOUNTER → 2019-11-16 11:05 | Outpatient (CLI) | payer BC, SELFPAY ==
--- NOTE | 2019-11-16 11:19 | CT_ITS ---
PROCEDURE: CT CHEST WO/W CON CLINCAL INDICATION: LYMPHOMA Abnormal PET CT follow-up, lymphoma COMPARISON: CT ABDOMEN PELVIS WO CON from 07/16/2019 TECHNIQUE: IV Contrast: 75ml Optiray 350 Axial images obtained with sagittal and coronal reformats. All CT scans at the facility use one or more dose reduction, viz: automated exposure control, ma/kV adjustment per patient size (including targeted exams where dose is matched to indication, i.e. head), or iterative reconstruction technique. THE PREVIOUS EXAM IS NOT AVAILABLE FOR REVIEW having been performed at an outside institution. FINDINGS: There are scattered small mediastinal, paratracheal, axillary lymph nodes. Left anterior paratracheal lymph node measures up to 13 mm, right prevascular lymph node at 10 mm, aortopulmonic node measures up to 15 mm, left hilar lymph node at 15 mm. A 15 mm node is present anterior to the left mainstem bronchus other smaller nodes are present as well. Left axillary lymph node measures up to 16 by 6 mm. The There is a small pneumatocele in the right upper lobe at 2.8 cm. There are atelectatic changes or fibrotic changes in the right lung base posteriorly. There are a few scattered small pulmonary nodular opacities in both lungs with a right-sided fissural nodule at 3 mm. There is a 14 mm spiculated opacity in the lingular region. In the right lower lobe laterally there is a 15 mm parenchymal opacity and in the right lung base posteriorly there is a patel mm parenchymal opacity associated with some atelectatic changes. No cavitary nodules are evident. There is moderate splenomegaly at 17 cm. There is a PEG catheter present in good position. No bony destructive process is evident. IMPRESSION: 1. Mild mediastinal and left hilar adenopathy as detailed above. Small nodes are present also in the axilla 2. There are small bilateral nodular opacities which are 3 mm or less along with irregular parenchymal opacity in the right lung base posteriorly, right lung base laterally, and lingula. No cavitary lesions are evident. No effusions or infiltrates. 3. Splenomegaly Dictated by: Kristian Rick MD 11/18/2019 10:15 Electronically signed by Kristian Rick MD in [place] 11/18/2019 10:15
== END ==
PROVIDERS: PCP Family Medicine; Visit Provider Internal Medicine Medical Oncology
DX: C81.90 Hodgkin lymphoma, unspecified, unspecified site (principal)
CPT/HCPCS: 71270; Q9967

== ENCOUNTER → 2019-12-27 10:41 | Outpatient (CLI) | payer BC, SELFPAY ==
[2019-12-27 12:53] LABS: Coronavirus 19 IgG Antibody Negative (Negative); Coronavirus 19 IgM Antibody Negative (Negative)
== END ==
PROVIDERS: Visit Provider Internal Medicine Gastroenterology
DX: Z01.818 Encounter for other preprocedural examination (principal)
CPT/HCPCS: 36415; 86328

== ENCOUNTER 2019-12-27 13:24 | Day surgery (SDC) | payer BC, SELFPAY ==
[2019-12-22 14:15] VITALS: BMI 31.1
[2019-12-27 14:03] VITALS: BP 111/69; PULSE 78; RESP 18; TEMP 36.6; O2SAT 98
[2019-12-27 15:03] VITALS: O2SAT 97
--- NOTE | 2019-12-27 15:17 | P.PCN_ITS ---
[facility] Procedure Note Procedure Note:: Flexible Sigmoidoscopy Procedure Report: Sigmoidoscopy Endoscopist: Omero Carroll II, MD Referring physician: Thiago Hidalgo MD/Marybeth Demarco MD/KIRAN Light Date of Procedure: December 27, 2019 Equipment: Olympus 180 variable stiffness pediatric colonoscope Sedation: MAC sedation Indication: Mrs. Nicholson is a 54-year-old female who had undergone diagnostic panendoscopy in April 2019. She did have nonerosive GERD and mild linear reactive gastropathy. She had multiple gastric fundic gland polyps. Her colonoscopy was entirely normal. The patient did have iron deficiency anemia. Her subsequent Hemoccult was negative. She did have acute renal failure previously with anemia and blood transfusions. The patient does state that in June 2019 she was diagnosed with Hodgkin's lymphoma. She did have a difficult time with treatment and required enteral feedings with gastrostomy tube placement. The patient did have a posttreatment PET scan and this did show perirectal lymphadenopathy. There was interval improvement of the right posterior triangle mediastinal adenopathy. There was interval development of left paratracheal lymph node. Additionally, there was rectal hypermetabolic activity and thus sigmoidoscopy/proctoscopy was recommended. The patient reports no rectal bleeding, abdominal pain, weight loss or change in bowel habits. Procedure: Prior to the procedure, a history and physical exam was performed, and patient's medications and allergies were reviewed. The risks, benefits and alternatives of the sedation and procedure were discussed with the patient. All questions were answered and informed consent was obtained. The patient was brought to the procedure room. Patient identification and proposed procedure were verified by the physician and the nurse. The patient was placed in a left lateral decubitus position and the scope was passed under direct vision. Throughout the procedure, the patient's blood pressure, pulse, and oxygen saturations were monitored continuously. The colonoscopy was accomplished without difficulty. The patient tolerated the procedure well. Findings: On digital rectal examination there was normal rectal tone. There was no external hemorrhoids. The colonoscope was then introduced into the anal canal and advanced to 60 cm from the anal verge. Upon withdrawal of the colonoscope, the descending, sigmoid and rectum were normal. Upon retroflexion within the rectum there were grade 1 internal hemorrhoids. There were no other mucosal abnormalities. Impression: 1. Normal sigmoidoscopy to 60 cm from anal verge 2. Grade 1 internal hemorrhoids Plan: There was no rectal findings that would support any neoplasm in the rectum or explain the hypermetabolic activity in the rectum seen on PET scan.
[2019-12-27 15:22] VITALS: BP 97/52; PULSE 73; RESP 18; TEMP 36.2; O2SAT 93
--- NOTE | 2019-12-27 15:24 | P.PN_ITS ---
[facility] Anesthesia Checklist - Patient Identification Patient Identification: Arm Band - Structural Data Admitted From: Home Planned Operative Procedure/s: flexible sigmoidoscopy Consent for Planned Operative Procedure(s) Verified: Yes Verified Documents: Surgical Consent, History and Physical - NPO Status Verified Time NPO: 00:00 - Additional verifications Anesthesia Reactions: No Hx Blood Transfusions: Yes Blood Transfusion Reaction: No - Airway Assessment C-Spine Mobility Assessed: Yes (mp2) TMJ Mobility Assessed: Yes Dentition: Good Dentition - Neurological Assessment Level of Consciousness: Awake, Alert - Anesthesia Plan Anesthesia Risk discussed: Yes Anesthesia Plan: Verified ASA Class: II Anesthesia Type: MAC [facility] History I have reviewed the patient's past medical history: Yes Medical History: Reports:: Asthma, Cancer (hodkins lymphoma), Gastroesophageal Reflux Disease(GERD), Hypertension, Valvular Heart Disease Denies:: Diabetes Mellitus Type 1, Diabetes Mellitus Type 2, Internal Pacemaker, MRSA, Seizures *Have you ever received a pneumonia vaccine?: No *Have you received a flu vaccine this season?: No Other Medical History: Reports: Anemia, Arthritis, Chemotherapy, Sinus Problems, Other. Denies: Blood Transfusion Reaction Anesthesia experience/problems:: nac Other Surgeries: Yes: Cancer Surgery (lymphnode removal of right neck), Colonoscopy, Colostomy, EGD, Other. No: Pacemaker Amputation: No Fractures: No - *Social History Last grade of school completed: Advanced degree Smoking Status: Never smoker Alcohol Intake: never Substance Use Type: denies use *Occupational Status:: unemployed Housing: house Household Members: spouse *Travel in the last 8 weeks: None Family Hx:: Asthma, Diabetes, Hyperlipidemia
[2019-12-27 15:32] VITALS: BP 111/57; PULSE 68; RESP 18; O2SAT 100
[2019-12-27 15:42] VITALS: BP 105/72; PULSE 71; RESP 18; O2SAT 100
== END 2019-12-27 15:42 | disposition home or self-care (01) ==
LOC: OUTP 13:27
PROVIDERS: PCP Nurse Practitioner Family; Visit Provider Internal Medicine Gastroenterology
PROC: 0DJD8ZZ Inspection of Lower Intestinal Tract, Via Natural or Artificial Opening Endoscopic (ICD-10-PCS; CPT 45330; principal; 2019-12-27 14:30)
DX: K64.0 First degree hemorrhoids (principal); N19 Unspecified kidney failure; Z93.1 Gastrostomy status; C81.90 Hodgkin lymphoma, unspecified, unspecified site; K21.9 Gastro-esophageal reflux disease without esophagitis; K31.9 Disease of stomach and duodenum, unspecified; D50.9 Iron deficiency anemia, unspecified; Z87.19 Personal history of other diseases of the digestive system; J45.909 Unspecified asthma, uncomplicated; N28.9 Disorder of kidney and ureter, unspecified; Z83.3 Family history of diabetes mellitus; Z80.9 Family history of malignant neoplasm, unspecified
CPT/HCPCS: 45330

== ENCOUNTER 2019-12-31 19:59 | Inpatient (IN) | payer BC, SELFPAY ==
[2019-12-31] VITALS (8 sets, daily range): BP systolic 101–135; BP diastolic 66–79; PULSE 59–75; RESP 16–18; TEMP 36.6–36.8; O2SAT 97–99; BMI 30.4; BMI 30.8; BMI 30.7
--- NOTE | 2019-12-31 21:18 | CT_ITS ---
PROCEDURE: CT ABDOMEN PELVIS WO CON CLINICAL INDICATION: abd pain Bloating with nausea and vomiting non-Hodgkin's lymphoma COMPARISON: CT ABDOMEN PELVIS WO CON from 07/16/2019 TECHNIQUE: Axial images obtained with sagittal and coronal reformats. All CT scans at the facility use one or more dose reduction, viz: automated exposure control, ma/kV adjustment per patient size (including targeted exams where dose is matched to indication, i.e. head), or iterative reconstruction technique. FINDINGS: LOWER THORAX: Atelectatic changes are present in the lung bases. A 4 mm noncalcified nodules present in the right major fissure inferiorly, 3 mm noncalcified nodule right lower lobe, 3 mm noncalcified nodule left lower lobe. These are unchanged. ABDOMEN & PELVIS: Unremarkable appearing liver. The gallbladder is distended with at least 2 small stones. There is mild splenomegaly at 15 cm. A PEG catheter is present with tip in the body of the stomach. The adrenal glands and kidneys have an unremarkable appearance. There is some very minimal stranding of the peripancreatic fat raising the suspicion of mild acute pancreatitis. Please correlate with clinical parameters. No intestinal obstruction or free air. No evidence of appendicitis or diverticulitis. No pelvic mass or abnormal fluid collection. No acute bony anomaly. IMPRESSION: 1. Very minimal stranding of the peripancreatic fat raising the suspicion of mild acute pancreatitis. Please correlate with clinical parameters. 2. Distended gallbladder with cholelithiasis. 3. Splenomegaly. 4. No change small bibasilar pulmonary nodular opacities Dictated by: Kristian Rick MD 01/01/2020 07:03 Electronically signed by Kristian Rick MD in [place] 01/01/2020 07:03
[2019-12-31 21:25] LABS: Basophils % 0.1 % (0.1-2.0); Eosinophils # 0.1 K/mm3 (0.0-0.4); Eosinophils % 0.5 % (0.1-12.0); Hematocrit 37.8 % (37.0-47.0); Hemoglobin 13.2 g/dL (12.2-16.2); Lymphocytes # 0.7 K/mm3 (0.7-4.5); Lymphocytes % 5.8 % (10-50); Mean Corpuscular HGB Conc 35.1 g/dL (31.8-35.4); Mean Corpuscular Hemoglobin 31.1 pg (27.0-31.2); Mean Corpuscular Volume 88.6 fl (81-99); Mean Platelet Volume 9.6 fl (7.4-10.4); Monocytes # 0.6 K/mm3 (0.1-1.0); Monocytes % 4.9 % (1.7-9.3); Neutrophils % 88.7 % (37.0-80.0); Platelet Count 151 K/mm3 (142-424); Red Blood Count 4.27 M/mm3 (4.20-5.40); Red Cell Distribution Width 14.2 % (11.5-17.5); White Blood Count 11.2 K/mm3 (4.8-10.8)
[2019-12-31 21:27] LABS: MANUAL DIFFERENTIAL MANUAL DIFFERENTIAL (MANUAL DIFF)
[2019-12-31 21:34] LABS: Lymphocytes % 3 % (10-50); Monocytes % 1 % (2-9); Neutrophils % 91 % (42-76); Platelet Estimate Normal; RBC Morphology Normal; Total Cells Counted 100
--- NOTE | 2019-12-31 21:34 | HMH.EDNVD ---
ED Disposition Clinical Impression: Transaminasemia, Renal insufficiency Pancreatitis, acute Qualifiers: Pancreatitis type: biliary Acute pancreatitis complication: no infection or necrosis Qualified Code(s): K85.10 - Biliary acute pancreatitis without necrosis or infection Cholecystitis with cholelithiasis Qualifiers: Cholelithiasis location: gallbladder Cholecystitis acuity: acute Biliary obstruction: without biliary obstruction Qualified Code(s): K80.00 - Calculus of gallbladder with acute cholecystitis without obstruction Hodgkins lymphoma Qualifiers: Hodgkin lymphoma type: unspecified type Lymphoma site: unspecified region Qualified Code(s): C81.90 - Hodgkin lymphoma, unspecified, unspecified site Disposition: Admitted As Inpatient Condition on Discharge: Serious Referrals: Raiza Harden APRN [Primary Care Provider] - - Critical Care Critical Care Time: No Attestation: On 12/31/19, the high probability of a clinically significant, sudden or life threatening deterioration of the following system(s) required my full and direct attention, intervention and personal management. The time I documented below is in addition to time spent performing reported procedures but includes the following listed in this critical care notation. Medical Decision Making - Medical Records Medical records reviewed: Yes: I reviewed the patient's medical records. - Akhil Inquiry Pt receiving controlled substance: No Vital Signs: 12/31/19 20:30 12/31/19 21:14 12/31/19 21:30 Temperature 97.9 F Temperature Source Oral Pulse Rate [Right Brachial] 75 63 65 Respiratory Rate 16 17 17 Blood Pressure [Right Arm] 101/75 L 108/73 L 112/74 Blood Pressure Mean [Right Arm] 83 84 86 Blood Pressure Source [Right Arm] Automatic Cuff Automatic Cuff Automatic Cuff Blood Pressure Position [Right Arm] Supine Sitting Supine 02 Sat by Pulse Oximetry 99 97 98 Oxygen Delivery Method Room Air Room Air Room Air 12/31/19 22:00 Temperature Temperature Source Pulse Rate [Right Brachial] 64 Respiratory Rate 18 Blood Pressure [Right Arm] 119/76 Blood Pressure Mean [Right Arm] 90 Blood Pressure Source [Right Arm] Automatic Cuff Blood Pressure Position [Right Arm] Supine 02 Sat by Pulse Oximetry 98 Oxygen Delivery Method Room Air - Lab Data Lab results reviewed: Yes: I reviewed the patient's lab results. Lab Results 12/31/19 21:15: WBC 11.2 H, RBC 4.27, Hgb 13.2, Hct 37.8, MCV 88.6, MCH 31.1, MCHC 35.1, RDW 14.2, Plt Count 151, MPV 9.6, Neut % (Auto) 88.7 H, Lymph % (Auto) 5.8 L, [place] % (Auto) 4.9, Eos % (Auto) 0.5, Baso % (Auto) 0.1, Neut # (Auto) 10.0 H, Lymph # (Auto) 0.7, [place] # (Auto) 0.6, Eos # (Auto) 0.1, Baso # (Auto) 0.0, Total Counted 100, Neutrophils % (Manual) 91 H, Band Neutrophils % 5.0, Lymphocytes % (Manual) 3 L, Monocytes % (Manual) 1 L, Platelet Estimate Normal, RBC Morphology Normal 12/31/19 21:15: Sodium 141, Potassium 4.5, Chloride 101, Carbon Dioxide 28, Anion Gap 16.5 H, BUN 30 H, Creatinine 1.20 H, Estimated Creat Clear 74, Estimated GFR 47 L, Est GFR ( Amer) 57 L, Glucose 140 H, Calcium 10.5 H, Total Bilirubin 1.1, AST 489 H*, ALT 365 H*, Alkaline Phosphatase 260 H, Total Protein 8.2, Albumin 4.4, Globulin 3.8 H, Albumin/Globulin Ratio 1.2, Amylase 3980 H*, Lipase 19778 H Result diagrams: 12/31/19 21:15 12/31/19 21:15 Orders (Tests/Meds): ED MEDICATIONS Generic Name Dose Route Start Last Admin Trade Name Freq PRN Reason Stop Dose Admin Sodium Chloride 1,000 mls @ 999 mls/hr 12/31/19 21:30 12/31/19 21:22 Sod Chlor 0.9% 1000ml Bag IV 12/31/19 22:30 999 mls/hr .[id number] BECKY Administration Sodium Chloride 8 ml 12/31/19 21:20 Sodium Chloride 0.9% 10ml Vial IV 01/30/20 21:19 NEEDED PRN dilute pepcid Discontinued Medications Generic Name Dose Route Start Last Admin Trade Name Freq PRN Reason Stop Dose Admin Diatrizoate Meglum/Diatrizoate Sod 30 ml 12/31/19 21:13
[2019-12-31 21:36] LABS: Alanine Aminotransferase 365 U/L (12-78); Albumin Level 4.4 g/dl (3.5-5.0); Albumin/Globulin Ratio 1.2 (1.1-1.8); Alkaline Phosphatase 260 U/L (38-126); Anion Gap 16.5 mEq/L (5-15); Aspartate Amino Transferase 489 U/L (14-36); Bilirubin,Total 1.1 mg/dl (0.2-1.3); Blood Urea Nitrogen 30 mg/dl (7-17); Calcium 10.5 mg/dl (8.4-10.2); Carbon Dioxide 28 mmol/L (22.0-30.0); Chloride 101 mmol/L (98-107); Creatinine Clearance Estimated 74 mL/min (50-200); Estimated Glomerular Filt Rate 47 ml/min (>60); GFR (African American) 57 ML/MIN (>60); Globulin 3.8 g/dL (1.3-3.2); Glucose 140 mg/dl (74-100); Potassium 4.5 mmoL/L (3.5-5.1); Sodium 141 mmol/L (136-145); Total Protein,Serum 8.2 g/dl (6.3-8.2)
--- NOTE | 2019-12-31 22:00 | PC.NURSE ---
pt states she is unable to drink the contrast. advised .
[2019-12-31 22:04] LABS: Amylase 3980 U/L (30-110)
--- NOTE | 2019-12-31 22:57 | PC.NURSE ---
called for bed assignment. spoke with phil. [phone]
--- NOTE | 2019-12-31 22:58 | PC.NURSE ---
spoke with aliya in admissions. informed of room assignment 204, acute pancreatitis and cholecystitis; acute status, narciso crews.
--- NOTE | 2019-12-31 23:37 | PC.NURSE ---
PT ARRIVED TO THE FLOOR VIA W/C FROM ED @ [id number].
[2020-01-01 00:22] LABS: Microscopic, Urine URINE MICROSCOPIC (MICROSCOPIC)
[2020-01-01 00:36] LABS: Appearance,Urine CLEAR (Clear); Bilirubin,Urine Negative (Negative); Blood, Urine Negative (Negative); Color,Urine DK YELLOW (Yellow); Glucose,Urine (UA) Negative (Negative); Ketones,Urine Negative (Negative); Leukocyte Esterase,Urine Negative (Negative); Nitrate,Urine Negative (Negative); PH,Urine >= 9.0 (5.0-8.5); Protein,Urine 1+ (Negative); Specific Gravity, Urine 1.015 (1.005-1.030); Urobilinogen,Urine 0.2 EU/dl (0.2)
[2020-01-01 04:00] VITALS: BP 94/54; PULSE 55; RESP 18; TEMP 36.7; O2SAT 99
[2020-01-01 05:42] VITALS: BMI 31.1
[2020-01-01 07:27] LABS: Basophils % 0.2 % (0.1-2.0); Eosinophils # 0.1 K/mm3 (0.0-0.4); Eosinophils % 0.9 % (0.1-12.0); Hematocrit 32.7 % (37.0-47.0); Lymphocytes # 1.2 K/mm3 (0.7-4.5); Mean Corpuscular HGB Conc 33.8 g/dL (31.8-35.4); Mean Corpuscular Hemoglobin 30.3 pg (27.0-31.2); Mean Corpuscular Volume 89.6 fl (81-99); Mean Platelet Volume 8.8 fl (7.4-10.4); Monocytes # 0.3 K/mm3 (0.1-1.0); Monocytes % 4.3 % (1.7-9.3); Neutrophils # 5.3 K/mm3 (1.8-7.8); Neutrophils % 76.6 % (37.0-80.0); Platelet Count 115 K/mm3 (142-424); Red Blood Count 3.65 M/mm3 (4.20-5.40); Red Cell Distribution Width 14.1 % (11.5-17.5); White Blood Count 6.9 K/mm3 (4.8-10.8)
[2020-01-01 07:31] LABS: Hemoglobin 11.1 g/dL (12.2-16.2)
[2020-01-01 07:35] LABS: Chloride 104 mmol/L (98-107)
[2020-01-01 07:36] LABS: Potassium 4.2 mmoL/L (3.5-5.1); Sodium 140 mmol/L (136-145)
[2020-01-01 07:38] LABS: Alanine Aminotransferase 269 U/L (12-78); Alkaline Phosphatase 155 U/L (38-126); Anion Gap 13.2 mEq/L (5-15); Aspartate Amino Transferase 215 U/L (14-36); Bilirubin,Total 0.3 mg/dl (0.2-1.3); Blood Urea Nitrogen 31 mg/dl (7-17); Carbon Dioxide 27 mmol/L (22.0-30.0); Creatinine Clearance Estimated 65 mL/min (50-200); Estimated Glomerular Filt Rate 39 ml/min (>60); GFR (African American) 48 ML/MIN (>60); Glucose 83 mg/dl (74-100)
[2020-01-01 07:39] LABS: Albumin Level 3.5 g/dl (3.5-5.0); Albumin/Globulin Ratio 1.3 (1.1-1.8); Globulin 2.7 g/dL (1.3-3.2); Total Protein,Serum 6.2 g/dl (6.3-8.2)
--- NOTE | 2020-01-01 07:39 | PC.NURSE ---
Called tape recording machine operator to have on-call general surgeon paged for this pt.
--- NOTE | 2020-01-01 07:50 | HMH.HP ---
*Admission Date: 12/31/19 *Chief complaint: Abdominal pain and swelling *History of present illness: Very pleasant 54-year-old white female with history of Hodgkin's lymphoma, currently undergoing treatment. She has been extremely anorexic with chemo treatments, and had had significantly poor nutritional status and as a result in September had a PEG tube placed to allow for better nutritional supplementation. This has been going well, and she had been feeling better with tube feedings during the day. About 1 week ago she actually was feeling well enough that she begin to orally eat and this went well over the last 5 to 6 days until the day before yesterday, when she began to have swelling and pain after a tube feed infusion. This continued throughout the day and she came to the emergency department late last night. Found to have pancreatitis, elevated transaminases, non-elevated bilirubin and no fever, admitted to hospital for pancreatitis. She has no history of other pancreatitis episodes, does not use alcohol. Does know that she has a gallstone. [facility] History I have reviewed the patient's past medical history: Yes Medical History: Reports:: Asthma, Cancer (HODGKIN LYMPHOMA), Gastroesophageal Reflux Disease(GERD), Hypertension, Valvular Heart Disease Denies:: Diabetes Mellitus Type 1, Diabetes Mellitus Type 2, Internal Pacemaker, MRSA, Seizures *Have you ever received a pneumonia vaccine?: No *Have you received a flu vaccine this season?: No Other Medical History: Reports: Anemia, Arthritis, Chemotherapy (LAST TIME RECEIVED CHEMO IN AUGUST), Sinus Problems, Other. Denies: Blood Transfusion Reaction Laterality Cases: Left: Other Other Surgeries: Yes: No Previous Surgery, Cancer Surgery (lymphnode removal of right neck), Colonoscopy, Colostomy, EGD, Other. No: Pacemaker Amputation: No Fractures: No - *Social History Last grade of school completed: Advanced degree Smoking Status: Never smoker Alcohol Intake: never Substance Use Type: denies use *Occupational Status:: unemployed, retired Housing: house Household Members: spouse *Travel in the last 8 weeks: None Family Hx:: Cancer, Diabetes, Hyperlipidemia, Thyroid Disorder, Substance abuse, Alcoholism Review of Systems - Review of Systems Review of systems:: pertinent systems reviewed and negative unless documented below - *Neurologic Denies localized weakness, Denies headache(s) Meds Home Medications Medication Instructions Recorded Confirmed Type febuxostat 80 mg tablet 80 mg PO DAILY 03/22/19 01/01/20 History pantoprazole 40 mg tablet,delayed 40 mg PO DAILY 03/22/19 01/01/20 History release Lactose-Reduced Food/Fiber 250 ml G-TUBE QID 01/01/20 01/01/20 History [Isosource 1.5 Jeromy Tube Feed Lq] Allergies Allergy/AdvReac Type Severity Reaction Status Date / Time No Known Allergies Allergy Verified 12/31/19 21:20 Exam Vital signs and Labs for Last 24 Hours: Temp Pulse Resp BP Pulse Ox 98.0 F 55 L 18 94/54 L 99 01/01/20 04:00 01/01/20 04:00 01/01/20 04:00 01/01/20 04:00 01/01/20 04:00 Laboratory Results - last 24 hr 12/31/19 21:15: WBC 11.2 H, RBC 4.27, Hgb 13.2, Hct 37.8, MCV 88.6, MCH 31.1, MCHC 35.1, RDW 14.2, Plt Count 151, MPV 9.6, Neut % (Auto) 88.7 H, Lymph % (Auto) 5.8 L, [place] % (Auto) 4.9, Eos % (Auto) 0.5, Baso % (Auto) 0.1, Neut # (Auto) 10.0 H, Lymph # (Auto) 0.7, [place] # (Auto) 0.6, Eos # (Auto) 0.1, Baso # (Auto) 0.0, Total Counted 100, Neutrophils % (Manual) 91 H, Band Neutrophils % 5.0, Lymphocytes % (Manual) 3 L, Monocytes % (Manual) 1 L, Platelet Estimate Normal, RBC Morphology Normal 12/31/19 21:15: Sodium 141, Potassium 4.5, Chloride 101, Carbon Dioxide 28, Anion Gap 16.5 H, BUN 30 H, Creatinine 1.20 H, Estimated Creat Clear 74, Estimated GFR 47 L, Est GFR ( Amer) 57 L, Glucose 140 H, Calcium 10.5 H, Total Bilirubin 1.1, AST 489 H*, ALT 365 H*, Alkaline Phosphatase 260 H, Total Protein 8.2, Albumin 4.4, Globulin 3.8 H, Alb
--- NOTE | 2020-01-01 07:54 | US_ITS ---
PROCEDURE: US GALLBLADDER Patient Age:54Y CLINICAL INDICATION: Pancreatitis-history of gallstone history of Hodgkin's period has feeding tube. In patient COMPARISON: US GALLBLADDER from 08/02/2019 CT ABDOMEN PELVIS WO CON from 12/31/2019 FINDINGS: Gallbladder: Cholelithiasis. Several small stones at dependent gallbladder again seen but these appear similar if not perhaps not slightly more numerous than on July 2019 ultrasound GB... Mild gallbladder wall thickening.. No fluid surrounding gallbladder. Common duct normal diameter. No intrahepatic biliary ductal dilatation Liver: Unremarkable the Pancreas: Unremarkable/Not well seen Right kidney: But normal size measuring 10.66 cm in length x4.2 cm x 6.2 cm. No hydronephrosis.. Question early diffuse cortical thinning IMPRESSION: Cholelithiasis again observed with suggestion mild gallbladder wall thickening. Gallbladder upper normal size Common duct normal Liver, pancreas right kidney satisfactory. Dictated by: Howard Abbasi MD 01/01/2020 11:49 Electronically signed by Howard Abbasi MD in [place] 01/01/2020 11:49
[2020-01-01 07:57] LABS: Lipase 9663 U/L (23-300)
[2020-01-01 08:00] VITALS: BP 88/45; PULSE 59; RESP 18; TEMP 36.5; O2SAT 98
--- NOTE | 2020-01-01 08:04 | PC.NURSE ---
Dr. Allan returned call and was notified about the consult for this pt.
--- NOTE | 2020-01-01 13:54 | P.CONPHA_ITS ---
[facility] Pharmacy VTE Monitoring - Patient Demographics Admission date: 01/01/20 Report Date: 01/01/20 Time: 13:54 Allergies/Adverse Reactions: Patient Allergies No Known Allergies Allergy (Verified 12/31/19 21:20) Height: 1.69 m Weight: 88.723 kg Patient Problems: Current Active Problems Hodgkins lymphoma (Acute) Pancreatitis, acute (Acute) Cholecystitis with cholelithiasis (Acute) Transaminasemia (Acute) Renal insufficiency (Acute) BMI 31.0-31.9,adult (Acute) Class 1 obesity with body mass index (BMI) of 31.0 to 31.9 in adult (Acute) Hypertension, essential (Acute) - VTE Risk Labs: VTE Related Lab Results Hgb 11.1 g/dL (12.2-16.2) L D 01/01/20 06:36 Hct 32.7 % (37.0-47.0) L 01/01/20 06:36 Plt Count 115 K/mm3 (142-424) L 01/01/20 06:36 BUN 31 mg/dl (7-17) H 01/01/20 06:36 Creatinine 1.40 mg/dl (0.52-1.04) H 01/01/20 06:36 Estimated Creat Clear 65 mL/min (50-200) 01/01/20 06:36 VTE Score: 8 VTE Risk Level: Moderate Risk - Prophylaxis Types of VTE Prophylaxis: TEDS Knee High (JUANA HOSE ORDER PLACED) Location of Applied Device: Refused
--- NOTE | 2020-01-01 13:59 | HMH.GSCON ---
*Admission Date: 01/01/20 *Reason for consult:: Abdominal pain. Pancreatitis. *History of present illness: Ms. Nicholson is a 54-year-old female admitted to [facility] with complaints of persistent nausea and vomiting. Minimal abdominal pain. Markedly elevated lipase; greater than 40,000. Admitted for subsequent follow-up and evaluation of elevated lipase with nausea and emesis. Ultrasound completed. Small dependent gallstones noted without pericholecystic fluid or evidence of acute cholecystitis. CT A/P completed. Minimal peripancreatic stranding. Very subtle finding. No other significant abnormality. Patient's medical history is complicated by diagnosis of Hodgkin's lymphoma for which she is undergoing chemotherapy. At the current time, patient indicates that chemotherapy has been on hold for additional findings on imaging. Feels better today. Similar episode approximate 1 month ago, yet nausea/emesis was present for shorter period of time. No other significant plaints. No fever or chills. Review of Systems - Constitutional Reports fatigue - *Gastrointestinal Reports nausea, Reports vomiting - *Neurologic Denies localized weakness, Denies headache(s) [facility] History Medical History: Reports:: Asthma, Cancer (HODGKIN LYMPHOMA), Gastroesophageal Reflux Disease(GERD), Hypertension, Valvular Heart Disease Denies:: Diabetes Mellitus Type 1, Diabetes Mellitus Type 2, Internal Pacemaker, MRSA, Seizures *Have you ever received a pneumonia vaccine?: No *Have you received a flu vaccine this season?: No Other Medical History: Reports: Anemia, Arthritis, Chemotherapy (LAST TIME RECEIVED CHEMO IN AUGUST), Sinus Problems, Other. Denies: Blood Transfusion Reaction Laterality Cases: Left: Other Other Surgeries: Yes: No Previous Surgery, Cancer Surgery (lymphnode removal of right neck), Colonoscopy, Colostomy, EGD, Other. No: Pacemaker Amputation: No Fractures: No - *Social History Last grade of school completed: Advanced degree Smoking Status: Never smoker Alcohol Intake: never Substance Use Type: denies use *Occupational Status:: unemployed, retired Housing: house Household Members: spouse *Travel in the last 8 weeks: None Family Hx:: Cancer, Diabetes, Hyperlipidemia, Thyroid Disorder, Substance abuse, Alcoholism Meds Home Medications Medication Instructions Recorded Confirmed Type febuxostat 80 mg tablet 80 mg PO DAILY 03/22/19 01/01/20 History pantoprazole 40 mg tablet,delayed 40 mg PO DAILY 03/22/19 01/01/20 History release Lactose-Reduced Food/Fiber 250 ml G-TUBE QID 01/01/20 01/01/20 History [Isosource 1.5 Jeromy Tube Feed Lq] Allergies Allergy/AdvReac Type Severity Reaction Status Date / Time No Known Allergies Allergy Verified 12/31/19 21:20 Exam Vital signs and Labs for Last 24 Hours: Temp Pulse Resp BP Pulse Ox 97.7 F 59 L 18 88/45 L 98 01/01/20 08:00 01/01/20 08:00 01/01/20 08:00 01/01/20 08:00 01/01/20 08:00 Laboratory Results - last 24 hr 12/31/19 21:15: WBC 11.2 H, RBC 4.27, Hgb 13.2, Hct 37.8, MCV 88.6, MCH 31.1, MCHC 35.1, RDW 14.2, Plt Count 151, MPV 9.6, Neut % (Auto) 88.7 H, Lymph % (Auto) 5.8 L, [place] % (Auto) 4.9, Eos % (Auto) 0.5, Baso % (Auto) 0.1, Neut # (Auto) 10.0 H, Lymph # (Auto) 0.7, [place] # (Auto) 0.6, Eos # (Auto) 0.1, Baso # (Auto) 0.0, Total Counted 100, Neutrophils % (Manual) 91 H, Band Neutrophils % 5.0, Lymphocytes % (Manual) 3 L, Monocytes % (Manual) 1 L, Platelet Estimate Normal, RBC Morphology Normal 12/31/19 21:15: Sodium 141, Potassium 4.5, Chloride 101, Carbon Dioxide 28, Anion Gap 16.5 H, BUN 30 H, Creatinine 1.20 H, Estimated Creat Clear 74, Estimated GFR 47 L, Est GFR ( Amer) 57 L, Glucose 140 H, Calcium 10.5 H, Total Bilirubin 1.1, AST 489 H*, ALT 365 H*, Alkaline Phosphatase 260 H, Total Protein 8.2, Albumin 4.4, Globulin 3.8 H, Albumin/Globulin Ratio 1.2, Amylase 3980 H*, Lipase 10170 H 12/31/19 23:45: Urine Color Dk yellow, Urine Appear
[2020-01-01 15:44] VITALS: BP 92/50; PULSE 82; RESP 18; TEMP 37.3; O2SAT 100
--- NOTE | 2020-01-01 17:35 | PC.NURSE ---
pt had a good day. no c/o pain or n/v. pt hopes to be discharged tomorrow. pt has tolerated diet well today. vss. will cont. to monitor.
[2020-01-01 20:00] VITALS: BP 98/40; PULSE 65; RESP 16; TEMP 36.8; O2SAT 97
[2020-01-02 05:00] VITALS: BP 97/36; PULSE 59; RESP 20; TEMP 36.7; O2SAT 93
--- NOTE | 2020-01-02 05:05 | PC.NURSE ---
A&OX3. KISS SETTER HAND EQUAL BILAT. LUNGS CLEAR T/O AUSCULTATION. PULSES +2, CAP REFILL < 3 SEC. ABDOMEN NOTED NONDISTENDED, ACTIVE BOWEL SOUNDS IN ALL QUADS, SOFT AND NONTENDER PER PALPATION. PT DENIES PASSING FLATUS OR BM THIS SHIFT. PEG TUBE NOTED TO LUQ OF ABDOMEN, SINCE NEW DRESSING APPLIED, CDI. PORT SITE NOTED TO LEFT UPPER CHEST WALL, CDI. NO S/S OF INFECTION. NO COMPLAINTS STATED PER PATIENT THIS SHIFT, RESTED WELL. VSS. WILL CONTINUE TO MONITOR.
[2020-01-02 06:00] VITALS: BMI 31.5
[2020-01-02 06:20] LABS: Basophils % 0.2 % (0.1-2.0); Eosinophils # 0.1 K/mm3 (0.0-0.4); Eosinophils % 1.7 % (0.1-12.0); Hematocrit 31.6 % (37.0-47.0); Lymphocytes # 1.1 K/mm3 (0.7-4.5); Mean Corpuscular HGB Conc 31.8 g/dL (31.8-35.4); Mean Corpuscular Hemoglobin 29.6 pg (27.0-31.2); Mean Platelet Volume 8.6 fl (7.4-10.4); Monocytes # 0.2 K/mm3 (0.1-1.0); Monocytes % 5.5 % (1.7-9.3); Neutrophils % 68.5 % (37.0-80.0); Platelet Count 101 K/mm3 (142-424); Red Cell Distribution Width 14.2 % (11.5-17.5); White Blood Count 4.4 K/mm3 (4.8-10.8)
[2020-01-02 06:42] LABS: Alanine Aminotransferase 171 U/L (12-78); Albumin/Globulin Ratio 1.3 (1.1-1.8); Alkaline Phosphatase 142 U/L (38-126); Anion Gap 10.4 mEq/L (5-15); Aspartate Amino Transferase 97 U/L (14-36); Bilirubin,Total 0.2 mg/dl (0.2-1.3); Blood Urea Nitrogen 27 mg/dl (7-17); Calcium 8.7 mg/dl (8.4-10.2); Carbon Dioxide 27 mmol/L (22.0-30.0); Chloride 107 mmol/L (98-107); Creatinine Clearance Estimated 93 mL/min (50-200); Estimated Glomerular Filt Rate 58 ml/min (>60); GFR (African American) 70 ML/MIN (>60); Globulin 2.4 g/dL (1.3-3.2); Glucose 77 mg/dl (74-100); Potassium 4.4 mmoL/L (3.5-5.1); Sodium 140 mmol/L (136-145); Total Protein,Serum 5.4 g/dl (6.3-8.2)
[2020-01-02 07:03] LABS: Lipase 839 U/L (23-300)
[2020-01-02 08:00] VITALS: BP 118/48; PULSE 60; RESP 19; TEMP 36.6; O2SAT 97
--- NOTE | 2020-01-02 08:00 | HMH.DCSUM ---
General - General Admission date:: 12/31/19 Discharge date: 01/02/20 HPI HPI: Very pleasant 54-year-old white female with history of Hodgkin's lymphoma, currently undergoing treatment. She has been extremely anorexic with chemo treatments, and had had significantly poor nutritional status and as a result in September had a PEG tube placed to allow for better nutritional supplementation. This has been going well, and she had been feeling better with tube feedings during the day. About 1 week ago she actually was feeling well enough that she begin to orally eat and this went well over the last 5 to 6 days until the day before yesterday, when she began to have swelling and pain after a tube feed infusion. This continued throughout the day and she came to the emergency department late last night. Found to have pancreatitis, elevated transaminases, non-elevated bilirubin and no fever, admitted to hospital for pancreatitis. She has no history of other pancreatitis episodes, does not use alcohol. Does know that she has a gallstone. Hospital Course Hospital Course: Patient was admitted, made n.p.o., IV fluids were administered. Pain relief was fairly quick. CT scan showed evidence of mild hazy pancreatitis. Gallbladder ultrasound showed a slightly thickened wall, no stones in the duct, no biliary dilatation. Surgical consultation was obtained, recommended no surgical intervention at this time and supportive care of pancreatitis. Overnight patient did great. This morning she feels much better. And has no pain, exam normalized and she wishes to go home. Laboratory studies improved with normalization of liver enzymes. Plan will be to discharge her home. Strongly instructed to avoid any kind of fat orally, clear liquids on top of her tube feeds until she is reevaluated by her primary office this next week. No new medications. She has follow-up for some biopsies of chest lesions at [facility] next week. Objective Vital signs: Temp Pulse Resp BP Pulse Ox 98.0 F 59 L 20 97/36 L 93 L 01/02/20 05:00 01/02/20 05:00 01/02/20 05:00 01/02/20 05:00 01/02/20 05:00 no acute distress - *Routine HEENT Exam Head: Present: normocephalic Eye: Present: EOMI, PERRL ENT: Present: mucous membranes moist - *Routine Neck Exam Present: supple - *Routine Respiratory Exam Present: CTA bilaterally - *Routine Cardiovascular Exam Present: RRR - *Routine Abdominal Exam Present: soft, normoactive bowel sounds. Absent: tenderness Comments: Vastly improved, PEG site continues to look good - *Routine Extremities Exam Absent: cyanosis, clubbing, edema - *Routine Skin Exam Present: warm. Absent: rash - Detailed Eye Exam Eyelids: Bilateral normal inspection Results Labs on day of discharge: Labs from last 24 hours 01/02/20 01/02/20 05:45 05:45 WBC 4.4 L D RBC 3.40 L Hgb 10.0 L Hct 31.6 L MCV 93.0 MCH 29.6 MCHC 31.8 RDW 14.2 Plt Count 101 L MPV 8.6 Neut % (Auto) 68.5 Lymph % (Auto) 24.0 [place] % (Auto) 5.5 Eos % (Auto) 1.7 Baso % (Auto) 0.2 Neut # (Auto) 3.0 Lymph # (Auto) 1.1 [place] # (Auto) 0.2 Eos # (Auto) 0.1 Baso # (Auto) 0.0 Sodium 140 Potassium 4.4 Chloride 107 Carbon Dioxide 27 Anion Gap 10.4 BUN 27 H Creatinine 1.00 D Estimated Creat Clear 93 Estimated GFR 58 L Est GFR ( Amer) 70 D Glucose 77 Calcium 8.7 Total Bilirubin 0.2 AST 97 H D ALT 171 H D Alkaline Phosphatase 142 H Total Protein 5.4 L Albumin 3.0 L D Globulin 2.4 Albumin/Globulin Ratio 1.3 Lipase 839 H Preliminary micro results at discharge 12/31/19 23:45 Urine Culture - Preliminary Urine,Clean Catch DS: Diagnosis - Discharge Diagnosis (1) Cholecystitis with cholelithiasis Status: Ruled-out (2) Hodgkins lymphoma Status: Chronic (3) Pancreatitis, acute Status: Acute (4) T
== END 2020-01-02 14:10 | disposition home or self-care (01) | DRG 444 ==
LOC: ER 23:01 → 2ND 23:05
PROVIDERS: Internal Medicine Adolescent Medicine; Admitting Provider Emergency Medicine; Emergency Provider Emergency Medicine; PCP Nurse Practitioner Family; Visit Provider Family Medicine
DX: K80.12 Calculus of gallbladder with acute and chronic cholecystitis without obstruction (principal); K85.90 Acute pancreatitis without necrosis or infection, unspecified; N17.9 Acute kidney failure, unspecified; C85.81 Other specified types of non-Hodgkin lymphoma, lymph nodes of head, face, and neck; Z79.899 Other long term (current) drug therapy
CPT/HCPCS: 36415; 74176; 76705; 80053; 81001; 82150; 83690; 85007; 85025; 87086; 96365; 96367; 96375; 96376; 99284; 99285; J1335; J2405

== ENCOUNTER 2020-03-23 13:06 | Outpatient (CLI) | payer BC, SELFPAY ==
[2020-03-23 13:08] VITALS: BMI 33.7
[2020-03-23 13:27] LABS: Basophils % 0.5 % (0.1-2.0); Eosinophils # 0.1 K/mm3 (0.0-0.4); Eosinophils % 2.8 % (0.1-12.0); Hematocrit 35.2 % (37.0-47.0); Hemoglobin 11.4 g/dL (12.2-16.2); Lymphocytes # 1.4 K/mm3 (0.7-4.5); Lymphocytes % 28.4 % (10-50); Mean Corpuscular HGB Conc 32.4 g/dL (31.8-35.4); Mean Corpuscular Volume 89.5 fl (81-99); Mean Platelet Volume 7.5 fl (7.4-10.4); Monocytes # 0.3 K/mm3 (0.1-1.0); Monocytes % 6.6 % (1.7-9.3); Neutrophils % 61.7 % (37.0-80.0); Platelet Count 132 K/mm3 (142-424); Red Blood Count 3.93 M/mm3 (4.20-5.40); Red Cell Distribution Width 13.8 % (11.5-17.5); White Blood Count 4.9 K/mm3 (4.8-10.8)
[2020-03-23 13:34] LABS: Alanine Aminotransferase 15 U/L (12-78); Aspartate Amino Transferase 22 U/L (14-36); Blood Urea Nitrogen 16 mg/dl (7-17); Chloride 105 mmol/L (98-107); Creatinine Clearance Estimated 107 mL/min (50-200); Estimated Glomerular Filt Rate 65 ml/min (>60); GFR (African American) 79 ML/MIN (>60); Potassium 3.5 mmoL/L (3.5-5.1); Sodium 143 mmol/L (136-145)
[2020-03-23 13:35] LABS: Albumin Level 3.8 g/dl (3.5-5.0); Albumin/Globulin Ratio 1.3 (1.1-1.8); Alkaline Phosphatase 75 U/L (38-126); Anion Gap 10.5 mEq/L (5-15); Bilirubin,Total 0.3 mg/dl (0.2-1.3); Carbon Dioxide 31 mmol/L (22.0-30.0); Globulin 2.9 g/dL (1.3-3.2); Glucose 97 mg/dl (74-100); Total Protein,Serum 6.7 g/dl (6.3-8.2)
== END 2020-03-23 13:20 | disposition home or self-care (01) ==
LOC: INF 13:06
PROVIDERS: Visit Provider Internal Medicine Medical Oncology
DX: C81.90 Hodgkin lymphoma, unspecified, unspecified site (principal); Z45.2 Encounter for adjustment and management of vascular access device
CPT/HCPCS: 80053; 85025; J1642

== ENCOUNTER 2020-06-01 13:24 | Outpatient (CLI) | payer BC, SELFPAY ==
[2020-06-01 13:25] VITALS: BMI 34.7
[2020-06-01 13:43] LABS: Basophils % 0.6 % (0.1-2.0); Eosinophils # 0.1 K/mm3 (0.0-0.4); Eosinophils % 1.7 % (0.1-12.0); Lymphocytes # 1.9 K/mm3 (0.7-4.5); Lymphocytes % 24.8 % (10-50); Mean Corpuscular HGB Conc 33.4 g/dL (31.8-35.4); Mean Corpuscular Hemoglobin 28.5 pg (27.0-31.2); Mean Corpuscular Volume 85.3 fl (81-99); Mean Platelet Volume 7.7 fl (7.4-10.4); Monocytes # 0.6 K/mm3 (0.1-1.0); Monocytes % 7.3 % (1.7-9.3); Neutrophils # 4.9 K/mm3 (1.8-7.8); Neutrophils % 65.6 % (37.0-80.0); Platelet Count 172 K/mm3 (142-424); Red Blood Count 4.92 M/mm3 (4.20-5.40); Red Cell Distribution Width 14.4 % (11.5-17.5); White Blood Count 7.5 K/mm3 (4.8-10.8)
[2020-06-01 13:48] LABS: Chloride 103 mmol/L (98-107); Potassium 4.1 mmoL/L (3.5-5.1); Sodium 139 mmol/L (136-145)
[2020-06-01 13:50] LABS: Blood Urea Nitrogen 22 mg/dl (7-17); Creatinine Clearance Estimated 90 mL/min (50-200); Estimated Glomerular Filt Rate 52 ml/min (>60); GFR (African American) 63 ML/MIN (>60)
[2020-06-01 13:51] LABS: Alanine Aminotransferase 21 U/L (12-78); Albumin Level 4.4 g/dl (3.5-5.0); Albumin/Globulin Ratio 1.4 (1.1-1.8); Alkaline Phosphatase 108 U/L (38-126); Anion Gap 10.1 mEq/L (5-15); Aspartate Amino Transferase 29 U/L (14-36); Bilirubin,Total 0.3 mg/dl (0.2-1.3); Carbon Dioxide 30 mmol/L (22.0-30.0); Globulin 3.2 g/dL (1.3-3.2); Glucose 104 mg/dl (74-100); Total Protein,Serum 7.6 g/dl (6.3-8.2)
== END 2020-06-01 13:30 | disposition home or self-care (01) ==
LOC: INF 13:24
PROVIDERS: Visit Provider Internal Medicine Medical Oncology
DX: C81.90 Hodgkin lymphoma, unspecified, unspecified site (principal); Z45.2 Encounter for adjustment and management of vascular access device
CPT/HCPCS: 80053; 85025; J1642

== ENCOUNTER 2020-07-12 09:55 | Outpatient (CLI) | payer BC, SELFPAY ==
[2020-07-12 10:05] VITALS: BP 143/85; PULSE 62; RESP 18; TEMP 36.8
== END 2020-07-12 10:15 | disposition home or self-care (01) ==
LOC: INF 09:58
PROVIDERS: Visit Provider Internal Medicine Medical Oncology
DX: Z45.2 Encounter for adjustment and management of vascular access device (principal)
CPT/HCPCS: 96523; J1642

== ENCOUNTER 2020-09-04 12:31 | Outpatient (CLI) | payer BC, SELFPAY ==
[2020-09-04 12:17] VITALS: BMI 45.1
[2020-09-04 12:31] LABS: Basophils % 0.7 % (0.1-2.0); Eosinophils # 0.1 K/mm3 (0.0-0.4); Eosinophils % 1.9 % (0.1-12.0); Hematocrit 40.2 % (37.0-47.0); Hemoglobin 13.1 g/dL (12.2-16.2); Lymphocytes # 1.7 K/mm3 (0.7-4.5); Lymphocytes % 29.4 % (10-50); Mean Corpuscular HGB Conc 32.5 g/dL (31.8-35.4); Mean Corpuscular Hemoglobin 28.4 pg (27.0-31.2); Mean Corpuscular Volume 87.2 fl (81-99); Mean Platelet Volume 8.2 fl (7.4-10.4); Monocytes # 0.3 K/mm3 (0.1-1.0); Monocytes % 5.4 % (1.7-9.3); Neutrophils # 3.7 K/mm3 (1.8-7.8); Neutrophils % 62.7 % (37.0-80.0); Platelet Count 147 K/mm3 (142-424); Red Blood Count 4.61 M/mm3 (4.20-5.40); Red Cell Distribution Width 14.4 % (11.5-17.5); White Blood Count 5.9 K/mm3 (4.8-10.8)
[2020-09-04 12:33] LABS: Chloride 108 mmol/L (98-107); Sodium 140 mmol/L (136-145)
[2020-09-04 12:36] LABS: Alanine Aminotransferase 14 U/L (12-78); Albumin Level 4.3 g/dl (3.5-5.0); Albumin/Globulin Ratio 1.5 (1.1-1.8); Alkaline Phosphatase 131 U/L (38-126); Aspartate Amino Transferase 23 U/L (14-36); Bilirubin,Total 0.4 mg/dl (0.2-1.3); Blood Urea Nitrogen 22 mg/dl (7-17); Carbon Dioxide 26 mmol/L (22.0-30.0); Creatinine Clearance Estimated 60 mL/min (50-200); Estimated Glomerular Filt Rate 58 ml/min (>60); GFR (African American) 70 ML/MIN (>60); Globulin 2.9 g/dL (1.3-3.2); Glucose 103 mg/dl (74-100); Total Protein,Serum 7.2 g/dl (6.3-8.2)
--- NOTE | 2020-09-04 13:13 | CT_ITS ---
PROCEDURE: CT CHEST WO/W CON CLINCAL INDICATION: HODGKIN LYMPHOMA Follow up COMPARISON: CT CT CHEST WO/W CON from 11/16/2019 TECHNIQUE: IV Contrast: 75ml Isovue 370 Axial images obtained with sagittal and coronal reformats. All CT scans at the facility use one or more dose reduction, viz: automated exposure control, ma/kV adjustment per patient size (including targeted exams where dose is matched to indication, i.e. head), or iterative reconstruction technique. FINDINGS: HEART AND MEDIASTINAL STRUCTURES: There are few small mediastinal lymph nodes once again noted not significantly changed. Pacemaker is present from left subclavian approach. LUNGS AND PLEURAL SPACES: 2.7 cm pneumatocele is present in the right upper lobe. Mild scarring noted in the right lung base posteriorly. Stable 3 mm nodule right lower lobe posteriorly. Stable 3 mm nodule right upper lobe laterally felt to represent a granuloma. Stable 3 mm nodule right upper lobe laterally image 33 which may also be due to a granuloma. Parenchymal opacity is present in the lingula suggestive of an area of scarring unchanged. Previously noted opacity in the right lung base laterally is somewhat less apparent and may have been due to an area of atelectasis with some scarring. Stable 4 mm nodule left lower lobe posterior laterally. No new nodules are evident. BONY STRUCTURES: No acute bony abnormalities apparent. UPPER ABDOMEN: Cholelithiasis. Splenomegaly at 16 cm. PEG catheter is been removed. Scarring is present in the catheter tract ADDITIONAL FINDINGS: Small axillary nodes IMPRESSION: Overall stable CT appearance of the chest with no new nodules or worsening adenopathy. Please see above for detail Cholelithiasis. Splenomegaly Dictated by: Kristian Rick MD 09/06/2020 07:38 Kristian Rick MD in [place] 09/06/2020 07:38
== END 2020-09-04 13:55 | disposition home or self-care (01) ==
LOC: RAD 12:32
PROVIDERS: PCP Nurse Practitioner Family; Visit Provider Internal Medicine Medical Oncology
DX: C81.90 Hodgkin lymphoma, unspecified, unspecified site (principal)
CPT/HCPCS: 71270; 80053; 85025; J1642

== ENCOUNTER 2020-10-18 09:54 | Outpatient (CLI) | payer BC, SELFPAY | END 2020-10-18 10:00 | disposition home or self-care (01) | LOC: INF 09:54 | PROVIDERS: Visit Provider Internal Medicine Medical Oncology | DX: C81.90 Hodgkin lymphoma, unspecified, unspecified site (principal); Z45.2 Encounter for adjustment and management of vascular access device | CPT/HCPCS: 96523; J1642 ==

== ENCOUNTER 2020-11-15 09:40 | Outpatient (CLI) | payer BC, SELFPAY | END 2020-11-15 09:51 | disposition home or self-care (01) | LOC: INF 09:44 | PROVIDERS: Visit Provider Internal Medicine Medical Oncology | DX: Z45.2 Encounter for adjustment and management of vascular access device (principal); C81.90 Hodgkin lymphoma, unspecified, unspecified site | CPT/HCPCS: 96523; J1642 ==

== ENCOUNTER 2020-12-27 09:49 | Outpatient (CLI) | payer BC, SELFPAY ==
[2020-12-27 09:58] VITALS: BMI 41.0
[2020-12-27 10:44] LABS: Basophils % 0.3 % (0.1-2.0); Eosinophils # 0.1 K/mm3 (0.0-0.4); Eosinophils % 1.4 % (0.1-12.0); Hematocrit 35.9 % (37.0-47.0); Hemoglobin 12.5 g/dL (12.2-16.2); Lymphocytes # 1.4 K/mm3 (0.7-4.5); Lymphocytes % 23.7 % (10-50); Mean Corpuscular HGB Conc 34.9 g/dL (31.8-35.4); Mean Corpuscular Hemoglobin 28.2 pg (27.0-31.2); Mean Corpuscular Volume 80.8 fl (81-99); Mean Platelet Volume 8.2 fl (7.4-10.4); Monocytes # 0.3 K/mm3 (0.1-1.0); Monocytes % 5.4 % (1.7-9.3); Neutrophils % 69.3 % (37.0-80.0); Platelet Count 120 K/mm3 (142-424); Red Blood Count 4.43 M/mm3 (4.20-5.40); Red Cell Distribution Width 14.6 % (11.5-17.5); White Blood Count 5.8 K/mm3 (4.8-10.8)
[2020-12-27 10:58] LABS: Uric Acid 2.9 mg/dl (2.5-6.2)
[2020-12-27 11:09] LABS: Anion Gap 12.3 mEq/L (5-15); Blood Urea Nitrogen 18 mg/dl (7-17); Calcium 8.6 mg/dl (8.4-10.2); Carbon Dioxide 28 mmol/L (22.0-30.0); Chloride 105 mmol/L (98-107); Creatinine Clearance Estimated 106 mL/min (50-200); Estimated Glomerular Filt Rate 52 ml/min (>60); GFR (African American) 63 ML/MIN (>60); Glucose 88 mg/dl (74-100); Phosphorous 2.9 mg/dl (2.5-4.5); Potassium 3.3 mmoL/L (3.5-5.1); Sodium 142 mmol/L (136-145)
[2020-12-27 11:11] LABS: Creatinine,Urine Random 309 mg/dL (Not Estab.); Microalbumin > 570.000 mg/L (0-16.7); Microalbumin/Creatinine Ratio 184.4
[2020-12-27 11:21] LABS: Intact Parathyroid Hormone 294.9 pg/mL (7.5-53.5)
== END 2020-12-27 10:50 | disposition home or self-care (01) ==
LOC: INF 09:49
PROVIDERS: Visit Provider Internal Medicine Medical Oncology
DX: N04.0 Nephrotic syndrome with minor glomerular abnormality (principal); Z45.2 Encounter for adjustment and management of vascular access device
CPT/HCPCS: 80069; 82043; 82570; 83970; 84550; 85025; J1642

== ENCOUNTER 2021-02-07 10:35 | Outpatient (CLI) | payer BC, SELFPAY | END 2021-02-07 11:15 | disposition home or self-care (01) | LOC: INF 10:37 | PROVIDERS: PCP Nurse Practitioner Family; Visit Provider Internal Medicine Medical Oncology | DX: Z45.2 Encounter for adjustment and management of vascular access device (principal) | CPT/HCPCS: 96523; J1642 ==

== ENCOUNTER 2021-02-20 08:26 | Outpatient (CLI) | payer BC, SELFPAY ==
[2021-02-20 08:30] VITALS: BMI 40.8
--- NOTE | 2021-02-20 08:50 | CT_ITS ---
PROCEDURE: CT CHEST WO/W CON CLINCAL INDICATION: LYMPHOMA Follow-up lymphoma COMPARISON: CT CT CHEST WO/W CON from 11/16/[address] CHEST WO/W CON from 09/04/2020 TECHNIQUE: IV Contrast: 75ml Isovue 370 Axial images obtained with sagittal and coronal reformats. All CT scans at the facility use one or more dose reduction, viz: automated exposure control, ma/kV adjustment per patient size (including targeted exams where dose is matched to indication, i.e. head), or iterative reconstruction technique. FINDINGS: HEART AND MEDIASTINAL STRUCTURES: Enlarged right lobe of the thyroid gland. There are few scattered small mediastinal lymph nodes which appear stable. MediPort catheter is present from left subclavian approach with the tip in the region the SVC. No enlarged lymph nodes. No mediastinal mass. There is minimal thickening of the pericardium inferiorly and anteriorly slightly more prominent. LUNGS AND PLEURAL SPACES: Small pneumatocele in the right upper lobe unchanged. There is some scarring in the right lung base posteriorly. Small Cindy fissural nodule right lower lobe 3 mm not significantly changed. Stable nodular opacity in the lingula which could be due to an area of scarring. Stable 3 mm nodule left lower lobe 3/40. No new nodules apparent. No effusions or infiltrates. BONY STRUCTURES: No acute bony abnormalities apparent. UPPER ABDOMEN: Splenomegaly at 17 cm. Fatty liver. Small gallstone in the region of the neck of the gallbladder. ADDITIONAL FINDINGS: No other significant abnormalities. IMPRESSION: Stable CT appearance of the chest. No new areas of adenopathy or new nodules evident. Please see above for detail. Splenomegaly not significantly changed. Dictated by: Kristian Rick MD 02/21/2021 08:55 Kristian Rick MD in [place] 02/21/2021 08:55
[2021-02-20 08:57] LABS: Basophils # 0.1 K/mm3 (0-0.2); Eosinophils # 0.2 K/mm3 (0.0-0.4); Eosinophils % 2.6 % (0.1-12.0); Hematocrit 41.7 % (37.0-47.0); Hemoglobin 13.4 g/dL (12.2-16.2); Lymphocytes # 1.7 K/mm3 (0.7-4.5); Lymphocytes % 26.6 % (10-50); Mean Corpuscular Volume 87.3 fl (81-99); Mean Platelet Volume 8.2 fl (7.4-10.4); Monocytes # 0.4 K/mm3 (0.1-1.0); Monocytes % 6.7 % (1.7-9.3); Neutrophils % 63.1 % (37.0-80.0); Platelet Count 158 K/mm3 (142-424); Red Blood Count 4.78 M/mm3 (4.20-5.40); Red Cell Distribution Width 14.3 % (11.5-17.5); White Blood Count 6.3 K/mm3 (4.8-10.8)
[2021-02-20 09:06] LABS: Alanine Aminotransferase 22 U/L (12-78); Albumin/Globulin Ratio 1.3 (1.1-1.8); Alkaline Phosphatase 118 U/L (38-126); Anion Gap 14.8 mEq/L (5-15); Aspartate Amino Transferase 29 U/L (14-36); Bilirubin,Total 0.3 mg/dl (0.2-1.3); Blood Urea Nitrogen 19 mg/dl (7-17); Calcium 8.9 mg/dl (8.4-10.2); Carbon Dioxide 29 mmol/L (22.0-30.0); Chloride 101 mmol/L (98-107); Creatinine Clearance Estimated 105 mL/min (50-200); Estimated Glomerular Filt Rate 52 ml/min (>60); GFR (African American) 62 ML/MIN (>60); Globulin 3.2 g/dL (1.3-3.2); Glucose 93 mg/dl (74-100); Potassium 3.8 mmoL/L (3.5-5.1); Sodium 141 mmol/L (136-145); Total Protein,Serum 7.2 g/dl (6.3-8.2)
== END 2021-02-20 09:45 | disposition home or self-care (01) ==
PROVIDERS: PCP Nurse Practitioner Family; Visit Provider Internal Medicine Medical Oncology
DX: C81.91 Hodgkin lymphoma, unspecified, lymph nodes of head, face, and neck (principal)
CPT/HCPCS: 71270; 80053; 85025; J1642; Q9967

== ENCOUNTER 2021-03-21 11:26 | Outpatient (CLI) | payer BC, SELFPAY | END 2021-03-21 11:50 | disposition home or self-care (01) | LOC: INF 11:26 | PROVIDERS: PCP Nurse Practitioner Family; Visit Provider Internal Medicine Medical Oncology | DX: C81.90 Hodgkin lymphoma, unspecified, unspecified site (principal); Z45.2 Encounter for adjustment and management of vascular access device | CPT/HCPCS: 96523; J1642 ==

== ENCOUNTER 2021-05-02 10:46 | Outpatient (CLI) | payer BC, SELFPAY | END 2021-05-02 11:18 | disposition home or self-care (01) | LOC: INF 10:48 | PROVIDERS: PCP Nurse Practitioner Family; Visit Provider Internal Medicine Medical Oncology | DX: Z45.2 Encounter for adjustment and management of vascular access device (principal) | CPT/HCPCS: 96523; J1642 ==

== ENCOUNTER 2021-05-30 11:20 | Outpatient (CLI) | payer BC, SELFPAY | END 2021-05-30 11:40 | disposition home or self-care (01) | LOC: INF 11:20 | PROVIDERS: PCP Nurse Practitioner Family; Visit Provider Internal Medicine Medical Oncology | DX: Z45.2 Encounter for adjustment and management of vascular access device (principal); C81.90 Hodgkin lymphoma, unspecified, unspecified site | CPT/HCPCS: 96523; J1642 ==

== ENCOUNTER 2021-06-27 10:50 | Outpatient (CLI) | payer BC, SELFPAY ==
[2021-06-27 11:01] VITALS: BMI 32.1
[2021-06-27 11:31] LABS: Microscopic, Urine URINE MICROSCOPIC (MICROSCOPIC)
[2021-06-27 11:35] LABS: Appearance,Urine CLEAR (Clear); Bilirubin,Urine Negative (Negative); Blood, Urine Negative (Negative); Color,Urine YELLOW (Yellow); Glucose,Urine (UA) Negative (Negative); Ketones,Urine Negative (Negative); Leukocyte Esterase,Urine Negative (Negative); Nitrate,Urine Negative (Negative); PH,Urine 5.5 (5.0-8.5); Protein,Urine 2+ (Negative); Specific Gravity, Urine >= 1.030 (1.005-1.030); Urobilinogen,Urine 0.2 EU/dl (0.2)
[2021-06-27 11:55] LABS: Basophils # 0.1 K/mm3 (0-0.2); Creatinine,Urine Random 191 mg/dL (Not Estab.); Eosinophils # 0.1 K/mm3 (0.0-0.4); Eosinophils % 1.9 % (0.1-12.0); Hematocrit 40.3 % (37.0-47.0); Hemoglobin 12.8 g/dL (12.2-16.2); Lymphocytes # 1.5 K/mm3 (0.7-4.5); Lymphocytes % 26.7 % (10-50); Mean Corpuscular HGB Conc 31.7 g/dL (31.8-35.4); Mean Corpuscular Hemoglobin 27.2 pg (27.0-31.2); Mean Corpuscular Volume 85.8 fl (81-99); Mean Platelet Volume 8.1 fl (7.4-10.4); Monocytes # 0.3 K/mm3 (0.1-1.0); Monocytes % 5.6 % (1.7-9.3); Neutrophils # 3.6 K/mm3 (1.8-7.8); Neutrophils % 64.9 % (37.0-80.0); Platelet Count 139 K/mm3 (142-424); Red Cell Distribution Width 14.9 % (11.5-17.5); White Blood Count 5.6 K/mm3 (4.8-10.8)
[2021-06-27 12:00] LABS: Intact Parathyroid Hormone 285.8 pg/mL (7.5-53.5)
[2021-06-27 12:05] LABS: 25-OH Vitamin D, Total 31.8 ng/mL (30-100)
[2021-06-27 12:31] LABS: Bacteria,Urine Trace /lpf; RBC,Urine Occasional #/hpf (0-3)
[2021-06-27 12:59] LABS: Anion Gap 13.5 mEq/L (5-15); Blood Urea Nitrogen 19 mg/dl (7-17); Calcium 8.7 mg/dl (8.4-10.2); Carbon Dioxide 26 mmol/L (22.0-30.0); Chloride 104 mmol/L (98-107); Creatinine Clearance Estimated 82 mL/min (50-200); Estimated Glomerular Filt Rate 52 ml/min (>60); GFR (African American) 62 ML/MIN (>60); Glucose 107 mg/dl (74-100); Potassium 3.5 mmoL/L (3.5-5.1); Sodium 140 mmol/L (136-145)
== END 2021-06-27 11:25 | disposition home or self-care (01) ==
LOC: INF 10:52
PROVIDERS: PCP Nurse Practitioner Family; Visit Provider Internal Medicine Medical Oncology
DX: C81.90 Hodgkin lymphoma, unspecified, unspecified site (principal); Z45.2 Encounter for adjustment and management of vascular access device
CPT/HCPCS: 80069; 81001; 82306; 82570; 83970; 84155; 85025; J1642

== ENCOUNTER 2021-07-25 11:21 | Outpatient (CLI) | payer BC, SELFPAY | END 2021-07-25 11:45 | disposition home or self-care (01) | LOC: INF 11:22 | PROVIDERS: PCP Nurse Practitioner Family; Visit Provider Internal Medicine Medical Oncology | DX: C81.90 Hodgkin lymphoma, unspecified, unspecified site (principal); Z45.2 Encounter for adjustment and management of vascular access device | CPT/HCPCS: 96523; J1642 ==

== ENCOUNTER 2021-08-21 12:11 | Outpatient (CLI) | payer BC, SELFPAY ==
[2021-08-21 12:20] VITALS: BMI 40.3
--- NOTE | 2021-08-21 12:34 | CT_ITS ---
FINAL REPORT CLINICAL HISTORY: LYMPHOMA COMPARISON: 02/20/2021 FINDINGS: Axial CT images of the chest were obtained with contrast. Coronal reformatted images were also obtained. This study was performed with techniques to keep radiation doses as low as reasonably achievable, (ALARA). Individualized dose reduction techniques using automated exposure control or adjustment of mA and/or KV according to the patient's size were employed. There is a stable borderline sized AP window node measuring 16 mm, previously measured 16 mm. There is also stable enlarged right hilar node measuring 17 mm, previously measured 17 mm. Several other smaller lymph nodes are identified. No axillary mass or adenopathy is identified. There is contrast extravasation in the left anterior upper chest. There is a pneumatocele in the right upper lobe. Mild scarring is noted. There is a stable 2 mm left lower lobe nodule. No new mass or nodule is identified. There is a gallstone in the gallbladder. There is mild fatty infiltration of the liver. IMPRESSION: Stable mediastinal and left hilar adenopathy which is nonspecific. No new mass or adenopathy is identified. Reviewed, Interpreted and Dictated by Luis Armando Amaya III, MD Transcribed by Antonia Wise Authenticated by Luis Armando Amaya III, MD on 08/21/2021 03:34:57 PM [facility]
[2021-08-21 12:40] LABS: Basophils # 0.1 K/mm3 (0-0.2); Basophils % 1.2 % (0.1-2.0); Eosinophils # 0.1 K/mm3 (0.0-0.4); Eosinophils % 2.1 % (0.1-12.0); Hematocrit 38.7 % (37.0-47.0); Hemoglobin 12.9 g/dL (12.2-16.2); Lymphocytes # 1.4 K/mm3 (0.7-4.5); Lymphocytes % 24.1 % (10-50); Mean Corpuscular HGB Conc 33.3 g/dL (31.8-35.4); Mean Corpuscular Volume 81.3 fl (81-99); Mean Platelet Volume 8.3 fl (7.4-10.4); Monocytes # 0.3 K/mm3 (0.1-1.0); Monocytes % 4.8 % (1.7-9.3); Neutrophils % 67.8 % (37.0-80.0); Platelet Count 136 K/mm3 (142-424); Red Blood Count 4.77 M/mm3 (4.20-5.40); Red Cell Distribution Width 15.6 % (11.5-17.5); White Blood Count 5.9 K/mm3 (4.8-10.8)
[2021-08-21 12:41] LABS: Chloride 103 mmol/L (98-107); Potassium 3.3 mmoL/L (3.5-5.1); Sodium 137 mmol/L (136-145)
[2021-08-21 12:44] LABS: Alanine Aminotransferase 20 U/L (12-78); Albumin Level 4.2 g/dl (3.5-5.0); Albumin/Globulin Ratio 1.4 (1.1-1.8); Alkaline Phosphatase 124 U/L (38-126); Anion Gap 9.3 mEq/L (5-15); Aspartate Amino Transferase 28 U/L (14-36); Bilirubin,Total 0.5 mg/dl (0.2-1.3); Blood Urea Nitrogen 16 mg/dl (7-17); Carbon Dioxide 28 mmol/L (22.0-30.0); Creatinine Clearance Estimated 114 mL/min (50-200); Estimated Glomerular Filt Rate 58 ml/min (>60); GFR (African American) 70 ML/MIN (>60); Globulin 2.9 g/dL (1.3-3.2); Total Protein,Serum 7.1 g/dl (6.3-8.2)
[2021-08-21 12:45] LABS: Calcium 7.9 mg/dl (8.4-10.2); Glucose 87 mg/dl (74-100)
--- NOTE | 2021-08-21 14:10 | PC.NURSE ---
1410-pt left chest pac infiltrated while pt in ct scan; notified and spoke with md;pt to monitor for s/s of infection and use ice packs over sites; pt to return on friday to be reaccessed and taken to fluoroscopy to check flow through port.
== END 2021-08-21 14:25 | disposition home or self-care (01) ==
LOC: INF 12:14
PROVIDERS: PCP Nurse Practitioner Family; Visit Provider Internal Medicine Medical Oncology
DX: C81.90 Hodgkin lymphoma, unspecified, unspecified site (principal)
CPT/HCPCS: 71260; 80053; 85025; Q9967

== ENCOUNTER 2021-08-24 08:06 | Outpatient (CLI) | payer BC, SELFPAY ==
--- NOTE | 2021-08-24 08:40 | PC.NURSE ---
0840-pt to fluoroscopy to check patency of port a cath per .
--- NOTE | 2021-08-24 08:46 | FL_ITS ---
FINAL REPORT CLINICAL HISTORY: . check port under fluoro fluoro time; 0.36 FINDINGS: PORTAGRAM: CLINICAL HISTORY:: Malfunctioning port-a-cath FINDINGS: The patient was brought to the flouroscopic suite and placed on the table in the supine position. The port-a-cath was injected with IV contrast under fluoroscopic guidance. The port catheter is fractured near the midclavicular line. There is no contrast flow beyond the fracture site. There is retrograde flow of contrast into the left axillary vein. IMPRESSION: The port catheter is fractured near the midclavicular line. Films reviewed , interpreted and dictated by Dr. Amaya Transcribed by Joel Lagunas PA-C. Reviewed, Interpreted and Dictated by Luis Armando Amaya III, MD Transcribed by MALLORIE Vasquez Authenticated by Luis Armando Amaya III, MD on 08/24/2021 09:53:52 AM [facility]
--- NOTE | 2021-08-24 08:53 | PC.NURSE ---
0853-pt back to infusion; called to notify per fluoroscopy that port is not working properly. new appointment with scheduled for 08/29/21 at 1345.
== END 2021-08-24 08:58 | disposition home or self-care (01) ==
LOC: INF 08:08
PROVIDERS: PCP Nurse Practitioner Family; Visit Provider Internal Medicine Medical Oncology
DX: Z45.2 Encounter for adjustment and management of vascular access device (principal)
CPT/HCPCS: 76000; 96523; Q9967

== ENCOUNTER → 2021-09-04 10:25 | Outpatient (CLI) | payer BC, SELFPAY | PROVIDERS: Visit Provider Surgery | DX: Z01.812 Encounter for preprocedural laboratory examination (principal); Z11.52 Encounter for screening for COVID-19 | CPT/HCPCS: C9803; U0003; U0005 ==

== ENCOUNTER 2021-09-06 08:06 | Day surgery (SDC) | payer BC, SELFPAY ==
[2021-09-03 13:19] VITALS: BMI 40.8
[2021-09-06 08:26] VITALS: BP 165/66; PULSE 65; RESP 18; TEMP 36.1; O2SAT 96
--- NOTE | 2021-09-06 08:41 | HMH.ANESCL ---
[facility] Anesthesia Checklist - Patient Identification Patient Identification: Arm Band - Structural Data Admitted From: Home Planned Operative Procedure/s: pORT A CATH REMOVAL Consent for Planned Operative Procedure(s) Verified: Yes - NPO Status Verified Time NPO: 00:00 - Additional verifications Anesthesia Reactions: No Hx Blood Transfusions: Yes Blood Transfusion Reaction: No - Airway Assessment C-Spine Mobility Assessed: Yes TMJ Mobility Assessed: Yes Dentition: Good Dentition - Neurological Assessment Level of Consciousness: Awake Hx Seizures: No Numbness or tingling in extremities: No - Anesthesia Plan Anesthesia Risk discussed: Yes Anesthesia Plan: Verified ASA Class: III Anesthesia Type: MAC [facility] History I have reviewed the patient's past medical history: Yes Medical History: Reports:: Asthma, Cancer (hodgkkins lymphoma), Gastroesophageal Reflux Disease(GERD), Hypertension, Valvular Heart Disease Denies:: Diabetes Mellitus Type 1, Diabetes Mellitus Type 2, Internal Pacemaker, MRSA, Seizures *Have you ever received a pneumonia vaccine?: No *Have you received a flu vaccine this season?: Yes Other Medical History: Reports: Anemia, Arthritis, Chemotherapy, Sinus Problems, Other. Denies: Blood Transfusion Reaction Anesthesia experience/problems:: None Laterality Cases: Left: Other Other Surgeries: Yes: No Previous Surgery, Cancer Surgery (lymph node right neck), Colonoscopy, Colostomy, EGD, Other. No: Pacemaker Amputation: No Fractures: No - *Social History Last grade of school completed: Some college Smoking Status: Never smoker Alcohol Intake: never Substance Use Type: denies use *Occupational Status:: retired Housing: house Household Members: spouse *Travel in the last 8 weeks: None Family Hx:: Cancer, Diabetes, Hyperlipidemia, Thyroid Disorder, Substance abuse, Alcoholism
--- NOTE | 2021-09-06 09:21 | P.OP_ITS ---
Date of procedure: 09/06/21 Pre-op Diagnosis:: Dysfunctional Port-A-Cath Post-op Diagnosis:: Same Procedure performed:: Removal of Port-A-Cath (left subclavian vein access) Surgeon:: Jesús Carnes MD [employer]):: Marlin [employer] TE[employer]ER:: Casey Cole Anesthesia: MAC, local Estimated blood loss (mL): 5 Operative findings:: 1 cm longitudinal rent in proximal one third of port Port hub and catheter removed in toto Operative note:: After informed consent was obtained the patient was taken to the operating room and placed in the supine position. Monitored anesthesia care ensued and her left chest was prepped and draped in a sterile fashion. After infiltration with local anesthetic an incision was made overlying the port. The deep subcutaneous tissue was dissected with electrocautery. The port hub was carefully elevated as the stay sutures were excised with cautery. The port having catheter was then carefully removed in toto. A 1 cm longitudinal rent in the proximal one third of the port catheter was confirmed. Electrocautery was utilized to achieve hemostasis. The subcutaneous tissue was reapproximated with interrupted Vicryl and skin was closed with 4-0 Monocryl in a interrupted mattress fashion to facilitate hemostasis. Dressings were applied and the patient was transferr ed recovery in stable condition. Condition: stable Disposition: PACU Specimens:: Port (not sent for pathologic evaluation) Complications:: No immediate
[2021-09-06 09:28] VITALS: BP 130/84; PULSE 87; RESP 18; TEMP 36.1; O2SAT 94
[2021-09-06 09:38] VITALS: BP 126/76; PULSE 70; RESP 18; O2SAT 94
[2021-09-06 09:54] VITALS: BP 139/89; PULSE 63; RESP 18; O2SAT 93
== END 2021-09-06 10:04 | disposition home or self-care (01) ==
LOC: OR 08:09
PROVIDERS: PCP Nurse Practitioner Family; Visit Provider Surgery
PROC: (CPT 36590; principal; 2021-09-06 09:45)
DX: T82.514A Breakdown (mechanical) of infusion catheter, initial encounter (principal); C81.90 Hodgkin lymphoma, unspecified, unspecified site; N17.9 Acute kidney failure, unspecified; N28.9 Disorder of kidney and ureter, unspecified; I10 Essential (primary) hypertension; E66.9 Obesity, unspecified; Z79.899 Other long term (current) drug therapy
CPT/HCPCS: 36589; 96374

== ENCOUNTER → 2021-10-30 12:19 | Outpatient (CLI) | payer BC, SELFPAY ==
--- NOTE | 2021-10-30 12:40 | XR_ITS ---
FINAL REPORT CLINICAL HISTORY: LT FLANK PAIN,PROTEINUNA FINDINGS: SINGLE VIEW ABDOMEN A single view of the abdomen was obtained. There is a nonobstructive bowel gas pattern. There are no abnormally dilated loops of small bowel. No renal stone identified. There are several presumed phleboliths in the pelvis. IMPRESSION: No renal stone identified. Nonobstructive bowel gas pattern. Reviewed, Interpreted and Dictated by Luis Armando Amaya III, MD Transcribed by Aviva Dee Authenticated by Luis Armando Amaya III, MD on 10/30/2021 01:36:06 PM [facility]
[2021-10-30 12:53] LABS: Basophils # 0.1 K/mm3 (0-0.2); Basophils % 1.5 % (0.1-2.0); Eosinophils # 0.1 K/mm3 (0.0-0.4); Eosinophils % 1.7 % (0.1-12.0); Hematocrit 40.3 % (37.0-47.0); Hemoglobin 13.4 g/dL (12.2-16.2); Lymphocytes # 1.5 K/mm3 (0.7-4.5); Lymphocytes % 23.2 % (10-50); Mean Corpuscular HGB Conc 33.3 g/dL (31.8-35.4); Mean Corpuscular Volume 81.1 fl (81-99); Mean Platelet Volume 8.2 fl (7.4-10.4); Monocytes # 0.4 K/mm3 (0.1-1.0); Monocytes % 5.4 % (1.7-9.3); Neutrophils # 4.5 K/mm3 (1.8-7.8); Neutrophils % 68.3 % (37.0-80.0); Platelet Count 169 K/mm3 (142-424); Red Blood Count 4.97 M/mm3 (4.20-5.40); Red Cell Distribution Width 16.1 % (11.5-17.5); White Blood Count 6.5 K/mm3 (4.8-10.8)
[2021-10-30 13:13] LABS: Chloride 107 mmol/L (98-107); Sodium 143 mmol/L (136-145)
[2021-10-30 13:14] LABS: Potassium 3.2 mmoL/L (3.5-5.1)
[2021-10-30 13:16] LABS: Alanine Aminotransferase 21 U/L (12-78); Albumin Level 3.8 g/dl (3.5-5.0); Albumin/Globulin Ratio 1.5 (1.1-1.8); Alkaline Phosphatase 102 U/L (38-126); Anion Gap 14.2 mEq/L (5-15); Aspartate Amino Transferase 26 U/L (14-36); Bilirubin,Total 0.4 mg/dl (0.2-1.3); Blood Urea Nitrogen 13 mg/dl (7-17); Carbon Dioxide 25 mmol/L (22.0-30.0); Estimated Glomerular Filt Rate 58 ml/min (>60); GFR (African American) 70 ML/MIN (>60); Globulin 2.6 g/dL (1.3-3.2); Glucose 134 mg/dl (74-100); Total Protein,Serum 6.4 g/dl (6.3-8.2)
== END ==
PROVIDERS: PCP Nurse Practitioner Family; Visit Provider Nurse Practitioner Family
DX: R10.9 Unspecified abdominal pain (principal); R80.9 Proteinuria, unspecified
CPT/HCPCS: 36415; 74018; 80053; 85025

== ENCOUNTER → 2021-11-06 09:28 | Outpatient (CLI) | payer BC, SELFPAY ==
--- NOTE | 2021-11-06 09:40 | CT_ITS ---
FINAL REPORT TECHNIQUE: Thin section axial images were obtained from the lung bases to the pubic symphysis without IV contrast. CLINICAL HISTORY: LEFT FLANK PAIN. MINIMAL CHANGE IN DISEASE COMPARISON: December 31, 2019 FINDINGS: There is a new trace left pleural effusion. Nodular opacities in the lingula are slightly improved. Tiny right lower lobe nodules are stable. There are no renal or ureteral stones. There is no hydronephrosis or perinephric stranding. The spleen is enlarged up to 17 cm. The remaining unenhanced solid abdominal organs are unremarkable. There are gallstones in the gallbladder. There is no evidence of small bowel obstruction. The appendix is normal. GI tract is without acute abnormality. There is diverticulosis without diverticulitis. The uterus and ovaries are normal for patient age. There is no lymphadenopathy or ascites. No acute osseous abnormality is identified. IMPRESSION: No renal or ureteral stones. No hydronephrosis. Gallstones. Splenomegaly. Reviewed, Interpreted and Dictated by Madison Gonzales MD Transcribed by Brent Hernandez Authenticated by Madison Gonzales MD on 11/06/2021 11:54:06 AM [facility]
== END ==
PROVIDERS: PCP Nurse Practitioner Family; Visit Provider Nurse Practitioner Family
DX: R10.9 Unspecified abdominal pain (principal); N04.0 Nephrotic syndrome with minor glomerular abnormality
CPT/HCPCS: 74176

== ENCOUNTER → 2021-12-08 09:48 | Outpatient (CLI) | payer BC, SELFPAY | PROVIDERS: PCP Nurse Practitioner Family; Visit Provider Surgery | DX: Z01.812 Encounter for preprocedural laboratory examination (principal); Z20.822 Contact with and (suspected) exposure to COVID-19; Z13.810 Encounter for screening for upper gastrointestinal disorder | CPT/HCPCS: C9803; U0003; U0005 ==

== ENCOUNTER 2021-12-11 08:19 | Day surgery (SDC) | payer BC, SELFPAY ==
[2021-12-06 12:22] VITALS: BMI 41.3
[2021-12-11 09:28] VITALS: BP 157/76; PULSE 54; RESP 18; TEMP 36.4; O2SAT 97
--- NOTE | 2021-12-11 10:03 | P.PN_ITS ---
[facility] Anesthesia Checklist - Structural Data Admitted From: Home Planned Operative Procedure/s: egd Consent for Planned Operative Procedure(s) Verified: Yes - Additional verifications Anesthesia Reactions: No Hx Blood Transfusions: Yes Blood Transfusion Reaction: No - Airway Assessment C-Spine Mobility Assessed: Yes TMJ Mobility Assessed: Yes Dentition: Good Dentition - Neurological Assessment Level of Consciousness: Awake, Alert, Appropriate - Anesthesia Plan Anesthesia Risk discussed: Yes Anesthesia Plan: Verified ASA Class: III Anesthesia Type: MAC [facility] History I have reviewed the patient's past medical history: Yes Medical History: Reports:: Asthma, Cancer (2020 - CLASSIC HODGKINS LYMPHOMA), Gastroesophageal Reflux Disease(GERD), Hypertension, Valvular Heart Disease Denies:: Diabetes Mellitus Type 1, Diabetes Mellitus Type 2, Internal Pacemaker, MRSA, Seizures *Have you ever received a pneumonia vaccine?: No *Have you received a flu vaccine this season?: Yes Other Medical History: Reports: Anemia, Arthritis, Chemotherapy, Sinus Problems, Other. Denies: Blood Transfusion Reaction Anesthesia experience/problems:: none Laterality Cases: Left: Other Other Surgeries: Yes: No Previous Surgery, Cancer Surgery (lymph node right neck), Colonoscopy, Colostomy, EGD, Other. No: Pacemaker Amputation: No Fractures: No - *Social History Last grade of school completed: Advanced degree Smoking Status: Never smoker Alcohol Intake: never Substance Use Type: denies use *Occupational Status:: unemployed Housing: house Household Members: spouse *Travel in the last 8 weeks: None Family Hx:: Hypertension, Kidney Disease
[2021-12-11 10:12] VITALS: O2SAT 97
[2021-12-11 10:35] VITALS: BP 113/63; PULSE 97; RESP 16; TEMP 36.1; O2SAT 95
--- NOTE | 2021-12-11 10:36 | HMH.SCOPE ---
- Procedure: Date: 12/11/21 Patient Date of :: 1965 Procedure Performed:: Esophagogastroduodenoscopy with biopsy Indications:: Left upper quadrant pain Performing Provider:: Jesús Carnes MD Referring Provider:: . Sedation:: Monitored anesthesia care Procedure:: After informed consent was obtained the patient was taken to the endoscopy suite. Sedation ensued after the patient was transferred to the left lateral decubitus position. Pulse, blood pressure, and oxygen saturation were monitored throughout the procedure. The endoscope was advanced beyond the duodenal bulb. Retroflexion within the gastric lumen was accomplished. The gastroscope was carefully removed and the patient was transferred to recovery in stable condition. Please see findings and specimens below for detail. Findings:: Mild varices between 20 and 30 cm Gastroesophageal junction at 39 cm Mild to moderate patchy gastritis Small healed ulcer versus diverticulum with inflammatory response along mid gastric body Numerous large complex polyps in proximal and mid gastric body Specimens:: Antral biopsy Biopsy of small mid gastric body diverticulum versus healed ulcer Mid gastric body polyps (multiple biopsies of multiple polyps) Proximal gastric body polyps (multiple biopsies of multiple polyps) Recommendations:: Follow-up pathology Likely short-term repeat esophagogastroduodenoscopy with focused polypectomy Proton pump inhibition Complications:: No immediate Estimated blood obtained (mL): 1
[2021-12-11 10:45] VITALS: BP 106/54; PULSE 77; RESP 18; TEMP 36.1; O2SAT 94
[2021-12-11 10:55] VITALS: BP 132/71; PULSE 70; RESP 18; TEMP 36.1; O2SAT 96
[2021-12-11 11:15] VITALS: BP 141/78; PULSE 63; RESP 18; TEMP 36.1; O2SAT 94
== END 2021-12-11 11:15 | disposition home or self-care (01) ==
LOC: OUTP 08:20
PROVIDERS: PCP Nurse Practitioner Family; Visit Provider Surgery
PROC: 0DJ08ZZ Inspection of Upper Intestinal Tract, Via Natural or Artificial Opening Endoscopic (ICD-10-PCS; CPT 43235; principal; 2021-12-11 09:30)
DX: K29.50 Unspecified chronic gastritis without bleeding (principal); K31.7 Polyp of stomach and duodenum; K21.9 Gastro-esophageal reflux disease without esophagitis; I10 Essential (primary) hypertension; C81.90 Hodgkin lymphoma, unspecified, unspecified site; J45.909 Unspecified asthma, uncomplicated; I38 Endocarditis, valve unspecified; Z79.899 Other long term (current) drug therapy
CPT/HCPCS: 43239; J2704

== ENCOUNTER → 2022-01-02 14:13 | Outpatient (CLI) | payer BC, SELFPAY ==
[2022-01-02 15:47] LABS: Creatinine,Urine Random 259 mg/dL (Not Estab.)
[2022-01-02 16:05] LABS: Albumin Level 4.1 g/dl (3.5-5.0); Anion Gap 12.8 mEq/L (5-15); Blood Urea Nitrogen 16 mg/dl (7-17); Carbon Dioxide 27 mmol/L (22.0-30.0); Chloride 103 mmol/L (98-107); Estimated Glomerular Filt Rate 52 ml/min (>60); GFR (African American) 62 ML/MIN (>60); Glucose 125 mg/dl (74-100); Phosphorous 3.4 mg/dl (2.5-4.5); Potassium 3.8 mmoL/L (3.5-5.1); Sodium 139 mmol/L (136-145)
[2022-01-02 16:18] LABS: Intact Parathyroid Hormone 207.8 pg/mL (7.5-53.5)
== END ==
PROVIDERS: PCP Physician Assistant; Visit Provider Physician Assistant
DX: N04.0 Nephrotic syndrome with minor glomerular abnormality (principal)
CPT/HCPCS: 36415; 80069; 82570; 83970; 84155

== ENCOUNTER 2022-02-20 09:10 | Outpatient (CLI) | payer BC, SELFPAY ==
--- NOTE | 2022-02-20 09:18 | CT_ITS ---
FINAL REPORT TECHNIQUE: After the administration of intravenous contrast, axial images were obtained through the abdomen and pelvis by computed tomography. The study was performed with techniques to keep radiation dose as low as reasonably achievable, (ALARA). Individual dose reduction techniques using automated exposure control or adjustment of mA and/or kV according to the patient's size were employed. CLINICAL HISTORY: LYMPHOMA COMPARISON: 11/06/2021 and 09/20/2015 FINDINGS: Abdomen: The liver is normal in size and attenuation. There is a gallstone. There is splenomegaly measuring 14.9 cm, not significantly changed since previous. The adrenals are normal. The pancreas is unremarkable. There is an 8 mm low-attenuation mass in the medial left kidney which was not seen on prior exam. This is not definitely a simple cyst but it is difficult to further characterize secondary to small size. The aorta is normal in caliber. There is no free fluid or adenopathy. Pelvis: The appendix is unremarkable. There is mild bladder wall thickening, likely inflammatory. There is no free fluid or adenopathy. IMPRESSION: Cholelithiasis. Splenomegaly, stable. Left renal cyst which is difficult to further characterize secondary to small size. This could be further evaluated with follow-up CT. Reviewed, Interpreted and Dictated by Luis Armando Aamya III, MD Transcribed by Antonia Wise Authenticated and [facility]
--- NOTE | 2022-02-20 09:18 | CT_ITS ---
FINAL REPORT TECHNIQUE: After the administration of intravenous contrast, axial images through the chest were performed by computed tomography.This study was performed with techniques to keep radiation doses as low as reasonably achievable, (ALARA). Individualized dose reduction techniques using automated exposure control or adjustment of mA and/or kV according to the patient''s size were employed. CLINICAL HISTORY: LYMPHOMA COMPARISON: 02/20/2021 FINDINGS: AP window node measures 17 mm, previously measured 17 mm. There are other mildly enlarged mediastinal nodes which are stable. There is left hilar adenopathy measuring 20 mm which is stable. There are borderline axillary nodes without evidence of adenopathy. A right upper lobe pneumatocele is seen, stable. There is mild bibasilar atelectasis. There is a small left effusion. No pericardial effusion is identified. IMPRESSION: Stable mild mediastinal and left hilar adenopathy. New, small left effusion. Reviewed, Interpreted and Dictated by Luis Armando Amaya III, MD Transcribed by Antonia Wise Authenticated and [facility]
[2022-02-20 09:33] VITALS: BMI 41.9
[2022-02-20 09:45] LABS: Basophils % 0.7 % (0.1-2.0); Eosinophils # 0.1 K/mm3 (0.0-0.4); Hematocrit 39.7 % (37.0-47.0); Hemoglobin 12.6 g/dL (12.2-16.2); Lymphocytes # 1.2 K/mm3 (0.7-4.5); Lymphocytes % 21.9 % (10-50); Mean Corpuscular HGB Conc 31.8 g/dL (31.8-35.4); Mean Corpuscular Hemoglobin 26.1 pg (27.0-31.2); Mean Corpuscular Volume 82.2 fl (81-99); Mean Platelet Volume 8.7 fl (7.4-10.4); Monocytes # 0.3 K/mm3 (0.1-1.0); Monocytes % 4.9 % (1.7-9.3); Neutrophils # 3.7 K/mm3 (1.8-7.8); Neutrophils % 70.5 % (37.0-80.0); Platelet Count 176 K/mm3 (142-424); Red Blood Count 4.83 M/mm3 (4.20-5.40); Red Cell Distribution Width 15.4 % (11.5-17.5); White Blood Count 5.3 K/mm3 (4.8-10.8)
[2022-02-20 10:14] LABS: Alanine Aminotransferase 19 U/L (12-78); Albumin Level 3.9 g/dl (3.5-5.0); Albumin/Globulin Ratio 1.2 (1.1-1.8); Alkaline Phosphatase 123 U/L (38-126); Anion Gap 10.6 mEq/L (5-15); Aspartate Amino Transferase 26 U/L (14-36); Bilirubin,Total 0.2 mg/dl (0.2-1.3); Blood Urea Nitrogen 17 mg/dl (7-17); Calcium 8.4 mg/dl (8.4-10.2); Carbon Dioxide 29 mmol/L (22.0-30.0); Chloride 106 mmol/L (98-107); Creatinine Clearance Estimated 53 mL/min (50-200); Estimated Glomerular Filt Rate 51 ml/min (>60); GFR (African American) 62 ML/MIN (>60); Globulin 3.2 g/dL (1.3-3.2); Glucose 87 mg/dl (74-100); Potassium 3.6 mmoL/L (3.5-5.1); Sodium 142 mmol/L (136-145); Total Protein,Serum 7.1 g/dl (6.3-8.2)
== END 2022-02-20 09:35 | disposition home or self-care (01) ==
LOC: RAD 09:11
PROVIDERS: PCP Nurse Practitioner Family; Visit Provider Internal Medicine Medical Oncology
DX: Z85.71 Personal history of Hodgkin lymphoma (principal); Z03.89 Encounter for observation for other suspected diseases and conditions ruled out
CPT/HCPCS: 36415; 71260; 74177; 80053; 85025; Q9967

== ENCOUNTER → 2022-03-08 13:16 | Outpatient (CLI) | payer BC, SELFPAY ==
--- NOTE | 2022-03-08 13:20 | CT_ITS ---
FINAL REPORT CLINICAL HISTORY: LYMPHOMA COMPARISON: April 23, 2019 FINDINGS: Thin section axial CT images with coronal and sagittal reformats were performed through the neck before and after the administration of IV contrast. This study was performed with techniques to keep radiation doses as low as reasonably achievable (ALARA). Individualized dose reduction techniques using automated exposure control or adjustment of mA and/or kV according to the patient's size were employed. There are a few small scattered cervical lymph nodes bilaterally. These have dramatically improved since the prior exam. The extensive right supraclavicular adenopathy has resolved.. Salivary glands are normal. Larynx is unremarkable. Thyroid gland is unremarkable. There is no abnormal contrast enhancement. IMPRESSION: Dramatic improvement in prior adenopathy. Few small scattered cervical lymph nodes bilaterally. Reviewed, Interpreted and Dictated by Scooby Kwon MD Transcribed by Brent Hernandez Authenticated and [facility]
== END ==
PROVIDERS: PCP Nurse Practitioner Family; Visit Provider Internal Medicine Medical Oncology
DX: Z85.71 Personal history of Hodgkin lymphoma (principal)
CPT/HCPCS: 70492; Q9967

== ENCOUNTER 2022-04-02 06:19 | Day surgery (SDC) | payer BC, SELFPAY ==
[2022-04-02] VITALS (7 sets, daily range): BP systolic 130–149; BP diastolic 69–94; PULSE 69–91; RESP 18; TEMP 36.3; O2SAT 87–97; BMI 41.9
--- NOTE | 2022-04-02 07:15 | EXP.ANES.CKL ---
PFSH PFSH Medical History Asthma Cancer GERD (gastroesophageal reflux disease) History of gout History of hyperparathyroidism History of kidney disease Valvular heart disease Surgical History History of cataract extraction History of lymph node excision History of percutaneous endoscopic gastrostomy History of removal of Port-a-Cath Family History Other Alcoholism Cancer Diabetes Hyperlipidemia Substance abuse Thyroid disorder Social History Smoking Status: Never smoker second hand exposure: No alcohol intake: never substance use type: denies use current occupational status: unemployed Travel in the last 8 weeks: None household members: spouse housing: house current occupational exposures/hazards: No caffeine: Yes [facility] Anesthesia Checklist Patient Identification Patient Identification: Arm Band and Verbal (Name & ) Structural Data Admitted From: Home Planned Operative Procedure/s: EGD Consent for Planned Operative Procedure(s) Verified: Yes NPO Status Verified Time NPO: 00:00 Chart Verification Results Verified: CBC and BMP Additional verifications Anesthesia Reactions: No Hx Blood Transfusions: Yes Blood Transfusion Reaction: No Airway Assessment C-Spine Mobility Assessed: Yes TMJ Mobility Assessed: Yes Dentition: Good Dentition Neurological Assessment Level of Consciousness: Awake Hx Seizures: No Numbness or tingling in extremities: No Anesthesia Plan Anesthesia Risk discussed: Yes Anesthesia Plan: Verified ASA Class: III Anesthesia Type: MAC
--- NOTE | 2022-04-02 08:00 | HMH.SCOPE ---
Procedure: Date: 04/02/22 Patient Date of :: 1965 Procedure Performed:: Esophagogastroduodenoscopy with polypectomy Indications:: Gastric polyps Esophagogastroduodenoscopy in December of this year revealed mild varices between 20 and 30 cm, mild to moderate gastritis, apparent healed ulcer versus small diverticulum along mid gastric body, and numerous proximal and mid gastric body polyps. She returns for repeat evaluation with regard to multiple polyps. Performing Provider:: Jesús Carnes MD Referring Provider:: . Sedation:: Monitored anesthesia care Procedure:: After informed consent was obtained the patient was taken to the endoscopy suite. Sedation ensued after the patient was transferred to the left lateral decubitus position. Pulse, blood pressure, and oxygen saturation were monitored throughout the procedure. The endoscope was advanced beyond the duodenal bulb. Retroflexion within the gastric lumen was accomplished. The gastroscope was carefully removed and the patient was transferred to recovery in stable condition. Please see findings and specimens below for detail. Findings:: Multiple polyps noted to be essentially unchanged Overall decrease in overall inflammatory response Specimens:: Mid/distal gastric body polyps (x2) Proximal/mid gastric body polyps (x6) Proximal gastric body polyps (x4) Recommendations:: Follow-up pathology Complications:: No immediate Estimated blood obtained (mL): 1
== END 2022-04-02 08:36 | disposition home or self-care (01) ==
PROVIDERS: PCP Nurse Practitioner Family; Visit Provider Surgery
PROC: 0DJ08ZZ Inspection of Upper Intestinal Tract, Via Natural or Artificial Opening Endoscopic (ICD-10-PCS; CPT 43235; principal; 2022-04-02 07:30)
DX: K31.7 Polyp of stomach and duodenum (principal)
CPT/HCPCS: 43251; 88305; J2704

== ENCOUNTER → 2022-07-08 12:21 | Outpatient (CLI) | payer BC, SELFPAY ==
[2022-07-08 12:31] LABS: Microscopic, Urine URINE MICROSCOPIC (MICROSCOPIC)
[2022-07-08 13:18] LABS: Hematocrit 38.9 % (37.0-47.0); Hemoglobin 12.9 g/dL (12.2-16.2); Mean Corpuscular HGB Conc 33.2 g/dL (31.8-35.4); Mean Corpuscular Hemoglobin 27.5 pg (27.0-31.2); Mean Corpuscular Volume 82.8 fl (81-99); Platelet Count 162 K/mm3 (142-424); Red Cell Distribution Width 16.2 % (11.5-17.5)
[2022-07-08 13:19] LABS: Appearance,Urine CLEAR (Clear); Bilirubin,Urine Negative (Negative); Blood, Urine Negative (Negative); Color,Urine YELLOW (Yellow); Glucose,Urine (UA) Negative (Negative); Ketones,Urine Negative (Negative); Leukocyte Esterase,Urine 1+ (Negative); Nitrate,Urine Negative (Negative); PH,Urine 5.5 (5.0-8.5); Protein,Urine 1+ (Negative); Specific Gravity, Urine >= 1.030 (1.005-1.030); Urobilinogen,Urine 0.2 EU/dl (0.2)
[2022-07-08 13:33] LABS: Bacteria,Urine 2+ /lpf; Creatinine,Urine Random 241 mg/dL (Not Estab.)
[2022-07-08 13:40] LABS: Chloride 105 mmol/L (98-107)
[2022-07-08 13:41] LABS: Albumin Level 4.1 g/dl (3.5-5.0); Potassium 4.2 mmoL/L (3.5-5.1); Sodium 139 mmol/L (136-145)
[2022-07-08 13:43] LABS: Blood Urea Nitrogen 18 mg/dl (7-17); Estimated Glomerular Filt Rate 46 ml/min (>60); GFR (African American) 56 ML/MIN (>60)
[2022-07-08 13:44] LABS: Anion Gap 12.2 mEq/L (5-15); Calcium 8.5 mg/dl (8.4-10.2); Carbon Dioxide 26 mmol/L (22.0-30.0); Glucose 93 mg/dl (74-100)
[2022-07-08 13:48] LABS: Uric Acid 4.1 mg/dl (2.5-6.2)
[2022-07-08 13:59] LABS: 25-OH Vitamin D, Total 43.1 ng/mL (30-100)
[2022-07-08 14:01] LABS: Intact Parathyroid Hormone 176.4 pg/mL (7.5-53.5)
== END ==
PROVIDERS: PCP Nurse Practitioner Family; Visit Provider Physician Assistant
DX: N18.31 Chronic kidney disease, stage 3a (principal)
CPT/HCPCS: 36415; 80069; 81001; 82306; 82570; 83970; 84155; 84550; 85014; 85018; 85048; 85049; 87086

== ENCOUNTER → 2022-09-09 08:04 | Outpatient (CLI) | payer BC, SELFPAY ==
[2022-09-09 08:34] LABS: Basophils # 0.1 K/mm3 (0-0.2); Basophils % 1.1 % (0.1-2.0); Eosinophils # 0.3 K/mm3 (0.0-0.4); Eosinophils % 4.2 % (0.1-12.0); Hematocrit 39.7 % (37.0-47.0); Hemoglobin 13.3 g/dL (12.2-16.2); Lymphocytes # 1.7 K/mm3 (0.7-4.5); Lymphocytes % 26.3 % (10-50); Mean Corpuscular HGB Conc 33.6 g/dL (31.8-35.4); Mean Corpuscular Hemoglobin 27.7 pg (27.0-31.2); Mean Corpuscular Volume 82.6 fl (81-99); Mean Platelet Volume 7.9 fl (7.4-10.4); Monocytes # 0.3 K/mm3 (0.1-1.0); Monocytes % 5.3 % (1.7-9.3); Neutrophils % 63.1 % (37.0-80.0); Platelet Count 144 K/mm3 (142-424); Red Cell Distribution Width 16.4 % (11.5-17.5); White Blood Count 6.3 K/mm3 (4.8-10.8)
--- NOTE | 2022-09-09 08:36 | CT_ITS ---
FINAL REPORT CLINICAL HISTORY: LYMPHOMA COMPARISON: February 2022 FINDINGS: Thin section axial CT images with coronal and sagittal reformats were performed through the neck before and after the administration of IV contrast. This study was performed with techniques to keep radiation doses as low as reasonably achievable (ALARA). Individualized dose reduction techniques using automated exposure control or adjustment of mA and/or kV according to the patient's size were employed. The nasopharynx, oropharynx and epiglottis are unremarkable. The larynx is unremarkable. There are several small right thyroid nodules, stable. There is no acute abnormality of the salivary glands. There are stable small bilateral cervical lymph nodes. There is no new adenopathy. IMPRESSION: Stable small cervical lymph nodes. Small right thyroid nodules. Reviewed, Interpreted and Dictated by Madison Gonzales MD Transcribed by Brent Hernandez Authenticated and . [facility]
--- NOTE | 2022-09-09 08:36 | CT_ITS ---
FINAL REPORT TECHNIQUE: Pre-and postcontrast axial imaging of the abdomen and pelvis was obtained.This study was performed with techniques to keep radiation doses as low as reasonably achievable, (ALARA). Individualized dose reduction technique using automated exposure control or adjustment of mA and/or kV according to the patient's size were employed. CLINICAL HISTORY: LYMPHOMA, patient in remission COMPARISON: 02/20/2022 FINDINGS: There are several stable, less than 5 mm, bilateral lower lobe pulmonary nodules. Liver is fatty infiltrated. There are gallstones. The spleen is mildly enlarged at 14.4 cm in long axis, slightly improved from prior exam. The adrenal glands, and pancreas are unremarkable. There is a stable, small left renal lesion, likely a cyst. There is no hydronephrosis or solid renal mass. On precontrast imaging, no renal stones are identified. Abdominal GI tract is unremarkable. There is no lymphadenopathy or ascites. The pelvic organs and pelvic portions of the GI tract, including the appendix, are within normal limits. The uterus and ovaries are unremarkable. There is no lymphadenopathy or ascites. No acute osseous abnormalities identified. IMPRESSION: 1. Mild splenomegaly, slightly decreased. 2. No lymphadenopathy. 3. Stable, small lower lung nodules, favor infectious/inflammatory. 4. Stable small left renal lesion, favor cyst. Reviewed, Interpreted and Dictated by Madison Gonzales MD Transcribed by Doris Cota Authenticated and . [facility]
[2022-09-09 08:43] LABS: Alanine Aminotransferase 25 U/L (12-78); Albumin Level 4.3 g/dl (3.5-5.0); Albumin/Globulin Ratio 1.5 (1.1-1.8); Alkaline Phosphatase 92 U/L (38-126); Anion Gap 11.4 mEq/L (5-15); Aspartate Amino Transferase 31 U/L (14-36); Bilirubin,Total 0.5 mg/dl (0.2-1.3); Blood Urea Nitrogen 21 mg/dl (7-17); Carbon Dioxide 29 mmol/L (22.0-30.0); Chloride 101 mmol/L (98-107); Estimated Glomerular Filt Rate 46 ml/min (>60); GFR (African American) 56 ML/MIN (>60); Globulin 2.9 g/dL (1.3-3.2); Glucose 96 mg/dl (74-100); Potassium 4.4 mmoL/L (3.5-5.1); Sodium 137 mmol/L (136-145); Total Protein,Serum 7.2 g/dl (6.3-8.2)
--- NOTE | 2022-09-09 09:25 | CT_ITS ---
FINAL REPORT CLINICAL HISTORY: LYMPHOMA- patient in remission COMPARISON: February 2022 FINDINGS: Before and after the administration of intravenous contrast, axial images through the chest were performed by computed tomography. This study was performed with techniques to keep radiation doses as low as reasonably achievable, (ALARA). Individualized dose reduction techniques using automated exposure control or adjustment of mA and/or kV according to the patient's size were employed. Bilateral axillary lymph nodes are unchanged. An AP window lymph node measuring 16 mm is unchanged. There is no hilar adenopathy.. The heart size is normal. There is no pericardial or pleural effusion. There is lingular and right lower lobe atelectasis or scarring. There is no new consolidation. A right upper lobe cyst is unchanged. There is a healing of fracture of the right 9th rib that was not on the prior exam. Otherwise there is no acute osseous abnormality. IMPRESSION: Stable lymph nodes. Healing right 9th rib fracture. Reviewed, Interpreted and Dictated by Madison Gonzales MD Transcribed by Brent Hernandez Authenticated and [facility]
== END ==
PROVIDERS: PCP Nurse Practitioner Family; Visit Provider Internal Medicine Medical Oncology
DX: Z85.79 Personal history of other malignant neoplasms of lymphoid, hematopoietic and related tissues (principal)
CPT/HCPCS: 36415; 70492; 71270; 74178; 80053; 85025; Q9967

== ENCOUNTER 2022-09-11 11:46 | Outpatient (CLI) | payer BC, SELFPAY ==
--- NOTE | 2022-09-11 11:55 | PC.NURSE ---
1155-collected labs via butterfly venipuncture. pt d/c home
[2022-09-11 12:15] LABS: Basophils # 0.1 K/mm3 (0-0.2); Basophils % 1.4 % (0.1-2.0); Eosinophils # 0.2 K/mm3 (0.0-0.4); Eosinophils % 3.6 % (0.1-12.0); Hematocrit 42.3 % (37.0-47.0); Lymphocytes # 1.6 K/mm3 (0.7-4.5); Lymphocytes % 24.5 % (10-50); Mean Corpuscular HGB Conc 30.6 g/dL (31.8-35.4); Mean Corpuscular Hemoglobin 26.6 pg (27.0-31.2); Mean Corpuscular Volume 86.8 fl (81-99); Mean Platelet Volume 8.1 fl (7.4-10.4); Monocytes # 0.4 K/mm3 (0.1-1.0); Monocytes % 5.5 % (1.7-9.3); Neutrophils # 4.2 K/mm3 (1.8-7.8); Neutrophils % 65.1 % (37.0-80.0); Platelet Count 168 K/mm3 (142-424); Red Blood Count 4.87 M/mm3 (4.20-5.40); Red Cell Distribution Width 16.5 % (11.5-17.5); White Blood Count 6.4 K/mm3 (4.8-10.8)
[2022-09-11 12:20] LABS: Anion Gap 10.2 mEq/L (5-15); Blood Urea Nitrogen 22 mg/dl (7-17); Calcium 9.1 mg/dl (8.4-10.2); Carbon Dioxide 31 mmol/L (22.0-30.0); Chloride 102 mmol/L (98-107); Creatinine Clearance Estimated 2 mL/min (50-200); Estimated Glomerular Filt Rate 46 ml/min (>60); GFR (African American) 56 ML/MIN (>60); Glucose 101 mg/dl (74-100); Potassium 4.2 mmoL/L (3.5-5.1); Sodium 139 mmol/L (136-145)
== END 2022-09-11 11:57 | disposition home or self-care (01) ==
LOC: INF 11:47
PROVIDERS: Visit Provider Internal Medicine Medical Oncology
DX: C81.91 Hodgkin lymphoma, unspecified, lymph nodes of head, face, and neck (principal)
CPT/HCPCS: 36415; 80048; 85025

== ENCOUNTER → 2023-01-14 08:59 | Outpatient (CLI) | payer BC, SELFPAY ==
[2023-01-14 09:08] LABS: Microscopic, Urine URINE MICROSCOPIC (MICROSCOPIC)
[2023-01-14 09:23] LABS: Appearance,Urine CLEAR (Clear); Bilirubin,Urine Negative (Negative); Blood, Urine Negative (Negative); Color,Urine YELLOW (Yellow); Glucose,Urine (UA) Negative (Negative); Ketones,Urine Negative (Negative); Leukocyte Esterase,Urine Negative (Negative); Nitrate,Urine Negative (Negative); PH,Urine 5.5 (5.0-8.5); Protein,Urine 1+ (Negative); Specific Gravity, Urine 1.025 (1.005-1.030); Urobilinogen,Urine 0.2 EU/dl (0.2)
[2023-01-14 09:24] LABS: Hematocrit 37.4 % (37.0-47.0); Hemoglobin 12.1 g/dL (12.2-16.2); Mean Corpuscular HGB Conc 32.2 g/dL (31.8-35.4); Mean Corpuscular Hemoglobin 27.7 pg (27.0-31.2); Platelet Count 139 K/mm3 (142-424); Red Blood Count 4.35 M/mm3 (4.20-5.40); Red Cell Distribution Width 15.7 % (11.5-17.5); White Blood Count 6.5 K/mm3 (4.8-10.8)
[2023-01-14 09:40] LABS: Squamous Epithelial Cell,Urine Occasional #/hpf (0-5)
[2023-01-14 10:08] LABS: Albumin Level 4.2 g/dl (3.5-5.0); Anion Gap 15.1 mEq/L (5-15); Blood Urea Nitrogen 21 mg/dl (7-17); Calcium 8.8 mg/dl (8.4-10.2); Carbon Dioxide 24 mmol/L (22.0-30.0); Chloride 107 mmol/L (98-107); Estimated Glomerular Filt Rate 46 ml/min (>60); GFR (African American) 56 ML/MIN (>60); Glucose 94 mg/dl (74-100); Phosphorous 3.3 mg/dl (2.5-4.5); Potassium 4.1 mmoL/L (3.5-5.1); Sodium 142 mmol/L (136-145); Uric Acid 3.8 mg/dl (2.5-6.2)
[2023-01-14 10:20] LABS: Intact Parathyroid Hormone 92.7 pg/mL (7.5-53.5)
[2023-01-14 10:50] LABS: Creatinine,Urine Random 233 mg/dL (Not Estab.)
== END ==
PROVIDERS: PCP Nurse Practitioner Family; Visit Provider Physician Assistant
DX: N18.31 Chronic kidney disease, stage 3a (principal); Z79.899 Other long term (current) drug therapy; D58.2 Other hemoglobinopathies
CPT/HCPCS: 36415; 80069; 81001; 82043; 82570; 83970; 84155; 84550; 85014; 85018; 85048; 85049

== ENCOUNTER → 2023-04-07 06:58 | Outpatient (CLI) | payer BC, SELFPAY ==
--- NOTE | 2023-04-07 07:14 | CT_ITS ---
FINAL REPORT CLINICAL HISTORY: HODGKINS LYMPHOMA COMPARISON: 09/09/2022 FINDINGS: CT OF THE ABDOMEN AND PELVIS WITH CONTRAST Axial CT images of the abdomen and pelvis were obtained after the administration of oral and iv contrast. Coronal and sagittal reformatted images were also obtained and reviewed.This study was performed with techniques to keep radiation doses as low as reasonably achievable (ALARA). Individualized dose reduction techniques using automated exposure control or adjustment of mA and/or kV according to the patient's size were employed. Abdomen: The lung bases are clear. The heart is normal in size. Fatty infiltration of the liver is once again noted. There is a gallstone present in the gallbladder, also unchanged. The spleen is mildly enlarged, measuring 14 cm in craniocaudal dimension, also stable. No adrenal mass is present. The pancreas has an unremarkable appearance. There is a small left renal cyst noted on the prior CT, stable. No evidence of new mass or hydronephrosis is seen. The aorta is normal in caliber. There is no free fluid or adenopathy. No mass or abnormal fluid collection is seen. Pelvis: The appendix is normal in appearance. The urinary bladder is remarkable for mild wall thickening, likely inflammatory. No inflammatory process is seen. There is no evidence of mass or adenopathy. There is no evidence of bowel obstruction. IMPRESSION: Fatty liver and cholelithiasis, unchanged. Mild splenomegaly also unchanged. Mild bladder wall thickening, likely inflammatory. Reviewed, Interpreted and Dictated by Luis Armando Amaya III, MD Transcribed by Bebe Rader Authenticated and [facility]
--- NOTE | 2023-04-07 07:14 | CT_ITS ---
FINAL REPORT CLINICAL HISTORY: HODGKINS LYMPHOMA COMPARISON: 09/09/2022 FINDINGS: Axial CT images of the chest were obtained with contrast. Coronal and sagittal reformatted images were also obtained. This study was performed with techniques to keep radiation doses as low as reasonably achievable, (ALARA). Individualized dose reduction techniques using automated exposure control or adjustment of mA and/or KV according to the patient's size were employed. There is a 6 mm right thyroid nodule, nonspecific. The AP window node noted on the prior chest CT of August 2022 today measures 17 mm in size, stable. There is a left hilar node measuring 19 mm, also stable. There are several other mildly enlarged mediastinal and hilar nodes which are also stable. There are several borderline in size axillary nodes, unchanged as well. There is a right upper lobe cyst versus pneumatocele, also stable. On lung window images, no pulmonary mass or dominant pulmonary nodule is identified. There are several less than 5 mm in size nodules seen bilaterally, that are also stable. No localized pulmonary inflammatory process is identified. IMPRESSION: 6 mm right thyroid nodule, nonspecific. Would recommend either 12-month follow-up CT examination or evaluation with thyroid ultrasound as clinically indicated. AP window node and left hilar node are both stable since the prior CT. There are several other mildly enlarged mediastinal and hilar nodes that are also stable. Borderline axillary nodes, also remained stable. No new mass or adenopathy is identified. Reviewed, Interpreted and Dictated by Luis Armando Amaya III, MD Transcribed by Bebe Rader Authenticated and [facility]
[2023-04-07 07:26] LABS: Blood Urea Nitrogen 18 mg/dl (7-17); Estimated Glomerular Filt Rate 51 ml/min (>60); GFR (African American) 62 ML/MIN (>60)
== END ==
PROVIDERS: PCP Nurse Practitioner Family; Referring Provider Internal Medicine Medical Oncology; Visit Provider Internal Medicine Medical Oncology
DX: Z85.71 Personal history of Hodgkin lymphoma (principal)
CPT/HCPCS: 36415; 71260; 74177; 82565; 84520; Q9967

== ENCOUNTER 2023-04-10 10:45 | Outpatient (CLI) | payer BC, SELFPAY ==
[2023-04-10 10:50] VITALS: BMI 41.0
--- NOTE | 2023-04-10 10:53 | PC.NURSE ---
1053-collected labs via venipuncture stick with butterfly needle in right hand;pt d/c to oncology appointment,
[2023-04-10 11:03] LABS: Basophils % 0.5 % (0.1-2.0); Eosinophils # 0.2 K/mm3 (0.0-0.4); Eosinophils % 2.6 % (0.1-12.0); Hematocrit 37.2 % (37.0-47.0); Hemoglobin 12.8 g/dL (12.2-16.2); Lymphocytes # 1.5 K/mm3 (0.7-4.5); Lymphocytes % 27.1 % (10-50); Mean Corpuscular HGB Conc 34.3 g/dL (31.8-35.4); Mean Corpuscular Hemoglobin 29.2 pg (27.0-31.2); Mean Corpuscular Volume 85.2 fl (81-99); Monocytes # 0.4 K/mm3 (0.1-1.0); Monocytes % 6.4 % (1.7-9.3); Neutrophils # 3.6 K/mm3 (1.8-7.8); Neutrophils % 63.4 % (37.0-80.0); Platelet Count 132 K/mm3 (142-424); Red Blood Count 4.37 M/mm3 (4.20-5.40); Red Cell Distribution Width 15.3 % (11.5-17.5); White Blood Count 5.6 K/mm3 (4.8-10.8)
[2023-04-10 11:28] LABS: Alanine Aminotransferase 27 U/L (12-78); Albumin Level 4.1 g/dl (3.5-5.0); Albumin/Globulin Ratio 1.4 (1.1-1.8); Alkaline Phosphatase 83 U/L (38-126); Anion Gap 15.3 mEq/L (5-15); Aspartate Amino Transferase 32 U/L (14-36); Bilirubin,Total 0.3 mg/dl (0.2-1.3); Blood Urea Nitrogen 17 mg/dl (7-17); Carbon Dioxide 25 mmol/L (22.0-30.0); Chloride 105 mmol/L (98-107); Creatinine Clearance Estimated 94 mL/min (50-200); Estimated Glomerular Filt Rate 46 ml/min (>60); GFR (African American) 56 ML/MIN (>60); Glucose 106 mg/dl (74-100); Potassium 3.3 mmoL/L (3.5-5.1); Sodium 142 mmol/L (136-145); Total Protein,Serum 7.1 g/dl (6.3-8.2)
== END 2023-04-10 10:56 | disposition home or self-care (01) ==
LOC: INF 10:47
PROVIDERS: PCP Nurse Practitioner; Visit Provider Internal Medicine Medical Oncology
DX: Z85.71 Personal history of Hodgkin lymphoma (principal)
CPT/HCPCS: 36415; 80053; 85025

== ENCOUNTER → 2023-04-15 10:06 | Outpatient (CLI) | payer BC, SELFPAY ==
--- NOTE | 2023-04-15 10:13 | MR_ITS ---
FINAL REPORT CLINICAL HISTORY: PAPILLAE EDEMA HISTORY OF LYMPHOMA 24 ml prohance given COMPARISON: 11/27/2018 FINDINGS: Multiplanar MR imaging of the brain was performed without and with contrast. Several small foci of increased T2 signal are seen in the cerebral white matter that have a nonspecific appearance but likely represent mild chronic ischemic/gliotic changes. There is no evidence of intracranial hemorrhage or mass. No abnormal ventricular dilatation is identified. There is no evidence of shift of the midline structures. No abnormal extra-axial fluid collection is seen. No area of abnormal restricted diffusion is identified. The posterior fossa and brainstem have an unremarkable appearance. No abnormal contrast enhancement is seen. Normal major vessel vascular flow voids are seen. IMPRESSION: Mild chronic ischemic/gliotic changes, stable from previous. No acute intracranial abnormality. Reviewed, Interpreted and Dictated by Luis Armando Amaya III, MD Transcribed by Antonia Wise Authenticated and [facility]
== END ==
PROVIDERS: PCP Nurse Practitioner; Visit Provider Internal Medicine Medical Oncology
DX: Z85.71 Personal history of Hodgkin lymphoma (principal)
CPT/HCPCS: 70553; A9576

== ENCOUNTER 2023-08-07 09:32 | Outpatient (CLI) | payer BC, SELFPAY ==
[2023-08-07 09:45] LABS: Microscopic, Urine URINE MICROSCOPIC (MICROSCOPIC)
[2023-08-07 10:28] LABS: Appearance,Urine CLEAR (Clear); Blood, Urine Negative (Negative); Color,Urine YELLOW (Yellow); Glucose,Urine (UA) Negative (Negative); Ketones,Urine Negative (Negative); Leukocyte Esterase,Urine Negative (Negative); Nitrate,Urine Negative (Negative); Protein,Urine TRACE (Negative); Specific Gravity, Urine >= 1.030 (1.005-1.030); Urobilinogen,Urine 0.2 EU/dl (0.2)
[2023-08-07 10:35] LABS: Bilirubin,Urine 1+ (Negative)
[2023-08-07 10:37] LABS: Basophils % 0.5 % (0.1-2.0); Eosinophils # 0.1 K/mm3 (0.0-0.4); Eosinophils % 1.4 % (0.1-12.0); Hematocrit 41.2 % (37.0-47.0); Hemoglobin 13.2 g/dL (12.2-16.2); Lymphocytes # 1.5 K/mm3 (0.7-4.5); Lymphocytes % 22.2 % (10-50); Mean Corpuscular Hemoglobin 28.1 pg (27.0-31.2); Mean Corpuscular Volume 87.7 fl (81-99); Mean Platelet Volume 8.4 fl (7.4-10.4); Monocytes # 0.3 K/mm3 (0.1-1.0); Monocytes % 5.2 % (1.7-9.3); Neutrophils # 4.6 K/mm3 (1.8-7.8); Neutrophils % 70.7 % (37.0-80.0); Platelet Count 130 K/mm3 (142-424); Red Blood Count 4.69 M/mm3 (4.20-5.40); Red Cell Distribution Width 16.5 % (11.5-17.5); White Blood Count 6.6 K/mm3 (4.8-10.8)
[2023-08-07 10:43] LABS: Creatinine,Urine Random 260 mg/dL (Not Estab.)
[2023-08-07 10:46] LABS: Bacteria,Urine Trace /lpf; WBC,Urine Occasional #/hpf (0-3)
[2023-08-07 10:47] LABS: Microalbumin/Creatinine Ratio 26.3
[2023-08-07 10:50] LABS: Albumin Level 4.2 g/dl (3.5-5.0); Anion Gap 13.7 mEq/L (5-15); Blood Urea Nitrogen 28 mg/dl (7-17); Calcium 9.7 mg/dl (8.4-10.2); Carbon Dioxide 18 mmol/L (22.0-30.0); Chloride 114 mmol/L (98-107); Estimated Glomerular Filt Rate 39 ml/min (>60); GFR (African American) 47 ML/MIN (>60); Glucose 93 mg/dl (74-100); Phosphorous 4.1 mg/dl (2.5-4.5); Potassium 3.7 mmoL/L (3.5-5.1); Sodium 142 mmol/L (136-145); Uric Acid 2.1 mg/dl (2.5-6.2)
[2023-08-07 11:03] LABS: Intact Parathyroid Hormone 16.9 pg/mL (7.5-53.5)
[2023-08-07 11:05] LABS: Iron 67 ug/dL (37-170)
[2023-08-07 11:14] LABS: Total Iron Binding Capacity 278 ug/dL (265-497)
[2023-08-07 11:41] LABS: Ferritin 120 ng/ml (11.1-264)
== END 2023-08-07 23:59 ==
PROVIDERS: PCP Nurse Practitioner; Visit Provider Nurse Practitioner Acute Care
DX: N18.31 Chronic kidney disease, stage 3a (principal); E55.9 Vitamin D deficiency, unspecified; N04.0 Nephrotic syndrome with minor glomerular abnormality; C81.98 Hodgkin lymphoma, unspecified, lymph nodes of multiple sites; M10.00 Idiopathic gout, unspecified site; D64.9 Anemia, unspecified; Z68.41 Body mass index [BMI] 40.0-44.9, adult
CPT/HCPCS: 36415; 80069; 81001; 82043; 82306; 82570; 82728; 83540; 83550; 83970; 84550; 85025

== ENCOUNTER 2023-08-12 09:45 | Outpatient (CLI) | payer BC, SELFPAY | END 2023-08-12 23:59 | LOC: INF 09:45 | PROVIDERS: PCP Nurse Practitioner; Visit Provider Internal Medicine Medical Oncology | DX: C81.90 Hodgkin lymphoma, unspecified, unspecified site (principal) ==

== ENCOUNTER 2023-08-13 12:10 | Outpatient (CLI) | payer BC, SELFPAY ==
[2023-08-13 12:17] VITALS: BMI 42.3
[2023-08-13 13:05] LABS: Basophils % 0.5 % (0.1-2.0); Eosinophils # 0.1 K/mm3 (0.0-0.4); Eosinophils % 2.2 % (0.1-12.0); Hematocrit 38.4 % (37.0-47.0); Hemoglobin 12.2 g/dL (12.2-16.2); Lymphocytes # 1.6 K/mm3 (0.7-4.5); Lymphocytes % 26.3 % (10-50); Mean Corpuscular HGB Conc 31.7 g/dL (31.8-35.4); Mean Corpuscular Hemoglobin 28.3 pg (27.0-31.2); Monocytes # 0.3 K/mm3 (0.1-1.0); Monocytes % 5.5 % (1.7-9.3); Neutrophils # 3.9 K/mm3 (1.8-7.8); Neutrophils % 65.6 % (37.0-80.0); Platelet Count 123 K/mm3 (142-424); Red Blood Count 4.31 M/mm3 (4.20-5.40); Red Cell Distribution Width 16.5 % (11.5-17.5); White Blood Count 5.9 K/mm3 (4.8-10.8)
[2023-08-13 13:07] LABS: Chloride 114 mmol/L (98-107); Potassium 3.5 mmoL/L (3.5-5.1); Sodium 141 mmol/L (136-145)
[2023-08-13 13:10] LABS: Alanine Aminotransferase 25 U/L (12-78); Albumin Level 3.7 g/dl (3.5-5.0); Albumin/Globulin Ratio 1.2 (1.1-1.8); Alkaline Phosphatase 78 U/L (38-126); Anion Gap 10.5 mEq/L (5-15); Aspartate Amino Transferase 27 U/L (14-36); Bilirubin,Total 0.3 mg/dl (0.2-1.3); Blood Urea Nitrogen 24 mg/dl (7-17); Carbon Dioxide 20 mmol/L (22.0-30.0); Creatinine Clearance Estimated 42 mL/min (50-200); Estimated Glomerular Filt Rate 39 ml/min (>60); GFR (African American) 47 ML/MIN (>60); Total Protein,Serum 6.7 g/dl (6.3-8.2)
[2023-08-13 13:11] LABS: Calcium 9.5 mg/dl (8.4-10.2); Glucose 109 mg/dl (74-100)
[2023-08-13 13:25] LABS: Erythrocyte Sedimentation Rate 27 mm/hr (0-30)
--- NOTE | 2023-08-13 14:52 | PC.NURSE ---
1250 - BLOOD DRAWN WITH BUTTERFLY NEEDLE TO CHECK LABS PER DR ROMERO AT THIS TIME.
== END 2023-08-13 13:00 | disposition home or self-care (01) ==
LOC: INF 12:10
PROVIDERS: PCP Nurse Practitioner; Visit Provider Internal Medicine Medical Oncology
DX: Z85.71 Personal history of Hodgkin lymphoma (principal); Z45.2 Encounter for adjustment and management of vascular access device
CPT/HCPCS: 36415; 80053; 85025; 85651; J1642

== ENCOUNTER 2023-11-03 13:14 | Outpatient (CLI) | payer BC, SELFPAY ==
[2023-11-03 14:04] LABS: Microalbumin/Creatinine Ratio 22.2
[2023-11-03 14:07] LABS: Basophils % 0.6 % (0.1-2.0); Creatinine,Urine Random 161 mg/dL (Not Estab.); Eosinophils # 0.1 K/mm3 (0.0-0.4); Eosinophils % 1.8 % (0.1-12.0); Hematocrit 40.9 % (37.0-47.0); Hemoglobin 12.9 g/dL (12.2-16.2); Lymphocytes # 1.7 K/mm3 (0.7-4.5); Lymphocytes % 26.9 % (10-50); Mean Corpuscular HGB Conc 31.7 g/dL (31.8-35.4); Mean Corpuscular Hemoglobin 27.9 pg (27.0-31.2); Mean Platelet Volume 8.7 fl (7.4-10.4); Monocytes # 0.4 K/mm3 (0.1-1.0); Monocytes % 6.4 % (1.7-9.3); Neutrophils % 64.3 % (37.0-80.0); Platelet Count 144 K/mm3 (142-424); Red Blood Count 4.64 M/mm3 (4.20-5.40); Red Cell Distribution Width 15.6 % (11.5-17.5); White Blood Count 6.3 K/mm3 (4.8-10.8)
[2023-11-03 14:47] LABS: Albumin Level 4.1 g/dl (3.5-5.0); Anion Gap 17.9 mEq/L (5-15); Blood Urea Nitrogen 21 mg/dl (7-17); Carbon Dioxide 17 mmol/L (22.0-30.0); Chloride 110 mmol/L (98-107); Estimated Glomerular Filt Rate 39 ml/min (>60); GFR (African American) 47 ML/MIN (>60); Glucose 89 mg/dl (74-100); Phosphorous 3.6 mg/dl (2.5-4.5); Potassium 3.9 mmoL/L (3.5-5.1); Sodium 141 mmol/L (136-145)
[2023-11-03 14:59] LABS: Intact Parathyroid Hormone 84.5 pg/mL (7.5-53.5)
== END 2023-11-03 23:59 | disposition home or self-care (01) ==
LOC: LAB 13:15
PROVIDERS: PCP Nurse Practitioner; Visit Provider Nurse Practitioner Acute Care
DX: N18.31 Chronic kidney disease, stage 3a (principal); I12.9 Hypertensive chronic kidney disease with stage 1 through stage 4 chronic kidney disease, or unspecified chronic kidney disease; D64.9 Anemia, unspecified; M10.00 Idiopathic gout, unspecified site; R60.9 Edema, unspecified; E55.9 Vitamin D deficiency, unspecified; E66.09 Other obesity due to excess calories; C81.98 Hodgkin lymphoma, unspecified, lymph nodes of multiple sites; K21.9 Gastro-esophageal reflux disease without esophagitis; Z68.42 Body mass index [BMI] 45.0-49.9, adult
CPT/HCPCS: 36415; 80069; 82043; 82570; 83970; 85025

== ENCOUNTER 2024-05-03 10:10 | Outpatient (CLI) | payer BC, SELFPAY ==
[2024-05-03 10:50] LABS: Basophils # 0.1 K/mm3 (0-0.2); Basophils % 0.8 % (0.1-2.0); Eosinophils # 0.1 K/mm3 (0.0-0.4); Eosinophils % 1.7 % (0.1-12.0); Hematocrit 38.6 % (37.0-47.0); Hemoglobin 12.6 g/dL (12.2-16.2); Lymphocytes # 1.7 K/mm3 (0.7-4.5); Lymphocytes % 26.2 % (10-50); Mean Corpuscular HGB Conc 32.5 g/dL (31.8-35.4); Mean Corpuscular Hemoglobin 28.4 pg (27.0-31.2); Mean Corpuscular Volume 87.2 fl (81-99); Mean Platelet Volume 8.9 fl (7.4-10.4); Monocytes # 0.3 K/mm3 (0.1-1.0); Monocytes % 5.4 % (1.7-9.3); Neutrophils # 4.2 K/mm3 (1.8-7.8); Platelet Count 142 K/mm3 (142-424); Red Blood Count 4.43 M/mm3 (4.20-5.40); Red Cell Distribution Width 15.2 % (11.5-17.5); White Blood Count 6.4 K/mm3 (4.8-10.8)
[2024-05-03 13:30] LABS: Albumin Level 4.1 g/dl (3.5-5.0); Anion Gap 17.7 mEq/L (5-15); Blood Urea Nitrogen 26 mg/dl (7-17); Calcium 9.1 mg/dl (8.4-10.2); Carbon Dioxide 20 mmol/L (22.0-30.0); Chloride 112 mmol/L (98-107); Estimated Glomerular Filt Rate 33 ml/min (>60); GFR (African American) 40 ML/MIN (>60); Glucose 88 mg/dl (74-100); Phosphorous 3.8 mg/dl (2.5-4.5); Potassium 3.7 mmoL/L (3.5-5.1); Sodium 146 mmol/L (136-145)
[2024-05-03 16:33] LABS: Creatinine,Urine Random 339 mg/dL (Not Estab.)
== END 2024-05-03 23:59 | disposition home or self-care (01) ==
LOC: LAB 10:12
PROVIDERS: PCP Nurse Practitioner; Visit Provider Nurse Practitioner Acute Care
DX: N18.31 Chronic kidney disease, stage 3a (principal); R60.9 Edema, unspecified; I12.9 Hypertensive chronic kidney disease with stage 1 through stage 4 chronic kidney disease, or unspecified chronic kidney disease; D64.9 Anemia, unspecified; K21.9 Gastro-esophageal reflux disease without esophagitis; M10.00 Idiopathic gout, unspecified site; C81.98 Hodgkin lymphoma, unspecified, lymph nodes of multiple sites; E66.01 Morbid (severe) obesity due to excess calories; E55.9 Vitamin D deficiency, unspecified
CPT/HCPCS: 36415; 80069; 82570; 83970; 84156; 85025

== ENCOUNTER 2024-09-01 10:20 | Outpatient (CLI) | payer BC, SELFPAY ==
[2024-09-01 11:02] LABS: Albumin Level 4.4 g/dl (3.5-5.0); Chloride 110 mmol/L (98-107); Sodium 139 mmol/L (136-145)
[2024-09-01 11:05] LABS: Alanine Aminotransferase 20 U/L (12-78); Albumin/Globulin Ratio 1.6 (1.1-1.8); Alkaline Phosphatase 81 U/L (38-126); Aspartate Amino Transferase 26 U/L (14-36); Bilirubin,Total 0.5 mg/dl (0.2-1.3); Blood Urea Nitrogen 23 mg/dl (7-17); Calcium 9.9 mg/dl (8.4-10.2); Carbon Dioxide 19 mmol/L (22.0-30.0); Estimated Glomerular Filt Rate 46 ml/min (>60); GFR (African American) 56 ML/MIN (>60); Globulin 2.8 g/dL (1.3-3.2); Glucose 90 mg/dl (74-100); Total Protein,Serum 7.2 g/dl (6.3-8.2)
[2024-09-01 11:13] LABS: Microscopic, Urine URINE MICROSCOPIC (MICROSCOPIC)
[2024-09-01 11:42] LABS: Albumin Level 4.4 g/dl (3.5-5.0); Chloride 111 mmol/L (98-107); Potassium 3.7 mmoL/L (3.5-5.1); Sodium 138 mmol/L (136-145)
[2024-09-01 11:45] LABS: Anion Gap 11.7 mEq/L (5-15); Blood Urea Nitrogen 23 mg/dl (7-17); Carbon Dioxide 19 mmol/L (22.0-30.0); Estimated Glomerular Filt Rate 42 ml/min (>60); GFR (African American) 51 ML/MIN (>60); Phosphorous 3.5 mg/dl (2.5-4.5)
[2024-09-01 11:46] LABS: Calcium 9.6 mg/dl (8.4-10.2); Glucose 86 mg/dl (74-100)
[2024-09-01 11:48] LABS: Anion Gap 13.7 mEq/L (5-15); Potassium 3.7 mmoL/L (3.5-5.1)
[2024-09-01 12:12] LABS: Appearance,Urine CLEAR (Clear); Bilirubin,Urine Negative (Negative); Blood, Urine Negative (Negative); Color,Urine YELLOW (Yellow); Glucose,Urine (UA) Negative (Negative); Ketones,Urine Negative (Negative); Leukocyte Esterase,Urine SMALL (Negative); Nitrate,Urine Negative (Negative); Protein,Urine Negative (Negative); Urobilinogen,Urine 0.2 EU/dl (0.2)
[2024-09-01 12:26] LABS: Squamous Epithelial Cell,Urine Occasional #/hpf (0-5)
[2024-09-01 12:36] LABS: Creatinine,Urine Random 86 mg/dL (Not Estab.)
[2024-09-01 12:52] LABS: Erythrocyte Sedimentation Rate 48 mm/hr (0-30)
[2024-09-01 14:01] LABS: Basophils # 0.1 K/mm3 (0-0.2); Basophils % 0.7 % (0.1-2.0); Eosinophils # 0.1 K/mm3 (0.0-0.4); Eosinophils % 1.6 % (0.1-12.0); Hematocrit 39.9 % (37.0-47.0); Hemoglobin 12.7 g/dL (12.2-16.2); Lymphocytes # 1.9 K/mm3 (0.7-4.5); Lymphocytes % 25.1 % (10-50); Mean Corpuscular HGB Conc 31.8 g/dL (31.8-35.4); Mean Corpuscular Hemoglobin 27.4 pg (27.0-31.2); Mean Platelet Volume 10.3 fl (7.4-10.4); Monocytes # 0.4 K/mm3 (0.1-1.0); Monocytes % 5.7 % (1.7-9.3); Neutrophils % 66.5 % (37.0-80.0); Platelet Count 59 K/mm3 (142-424); Red Blood Count 4.64 M/mm3 (4.20-5.40); Red Cell Distribution Width 14.6 % (11.5-17.5); White Blood Count 7.5 K/mm3 (4.8-10.8)
== END 2024-09-01 10:30 | disposition home or self-care (01) ==
LOC: INF 10:20 → LAB 11:04
PROVIDERS: Internal Medicine Medical Oncology; PCP Nurse Practitioner; Visit Provider Nurse Practitioner Acute Care
DX: C81.90 Hodgkin lymphoma, unspecified, unspecified site (principal)
CPT/HCPCS: 36415; 80053; 80069; 81001; 82570; 84156; 85025; 85651

== ENCOUNTER 2024-09-27 12:05 | Outpatient (CLI) | payer BC, SELFPAY ==
[2024-09-27 12:44] LABS: Basophils % 0.6 % (0.1-2.0); Eosinophils # 0.1 K/mm3 (0.0-0.4); Eosinophils % 1.3 % (0.1-12.0); Hematocrit 37.7 % (37.0-47.0); Hemoglobin 12.3 g/dL (12.2-16.2); Lymphocytes # 1.8 K/mm3 (0.7-4.5); Lymphocytes % 25.4 % (10-50); Mean Corpuscular HGB Conc 32.6 g/dL (31.8-35.4); Mean Corpuscular Volume 85.7 fl (81-99); Mean Platelet Volume 10.5 fl (7.4-10.4); Monocytes # 0.4 K/mm3 (0.1-1.0); Monocytes % 5.3 % (1.7-9.3); Neutrophils # 4.7 K/mm3 (1.8-7.8); Neutrophils % 67.1 % (37.0-80.0); Nucleated Red Blood Cells # 0 10^3/uL; Nucleated Red Blood Cells % 0 %; Platelet Count 161 K/mm3 (142-424); Red Cell Distribution Width 14.8 % (11.5-17.5); Red Cell Distribution Width-SD 46.7 fL
[2024-09-27 13:28] LABS: Albumin Level 3.9 g/dl (3.5-5.0); Chloride 113 mmol/L (98-107); Potassium 3.6 mmoL/L (3.5-5.1); Sodium 143 mmol/L (136-145)
[2024-09-27 13:31] LABS: Alanine Aminotransferase 20 U/L (12-78); Albumin/Globulin Ratio 1.4 (1.1-1.8); Alkaline Phosphatase 74 U/L (38-126); Anion Gap 14.6 mEq/L (5-15); Aspartate Amino Transferase 27 U/L (14-36); Bilirubin,Total 0.4 mg/dl (0.2-1.3); Blood Urea Nitrogen 19 mg/dl (7-17); Carbon Dioxide 19 mmol/L (22.0-30.0); Estimated Glomerular Filt Rate 42 ml/min (>60); GFR (African American) 51 ML/MIN (>60); Globulin 2.8 g/dL (1.3-3.2); Total Protein,Serum 6.7 g/dl (6.3-8.2)
[2024-09-27 13:32] LABS: Glucose 104 mg/dl (74-100)
[2024-09-27 13:37] LABS: Erythrocyte Sedimentation Rate 20 mm/hr (0-30)
== END 2024-09-27 23:59 | disposition home or self-care (01) ==
LOC: LAB 12:06
PROVIDERS: PCP Nurse Practitioner; Visit Provider Internal Medicine Medical Oncology
DX: C81.90 Hodgkin lymphoma, unspecified, unspecified site (principal)
CPT/HCPCS: 36415; 80053; 85025; 85651

== ENCOUNTER 2025-03-28 09:50 | Outpatient (CLI) | payer BC, SELFPAY ==
--- OUTSIDE RECORDS SUMMARY | 2025-03-28 09:55 | XMS_ITS | Clinical Summary ---
Author Organization [facility], [facility] Address [address] [place] [phone] Phone Care Team Providers Care Roof Cement And Paint Maker Name Role Phone Gricel Lucía Primary Care Provider Allergies No known active allergies Medications Cholecalciferol 50 MCG (1999) capsule Take 1 capsule by mouth daily Active acetaZOLAMIDE (DIAMOX) 250 MG tablet Take 250 mg by mouth 1 (one) time each day Active HYDROcodone-jan taminophen (NORCO) 5-325 MG per tablet Take 1 tablet by mouth if needed for moderate pain Active calcitriol (ROCALTROL) 0.5 MCG capsule Take 1 capsule (0.5 mcg total) by mouth 1 (one) time each day 90 capsule 3 08/30/2024 08/31/19 26 Active Febuxostat (ULORIC) 40 MG tablet TAKE ONE TABLET BY MOUTH ONCE A DAY 90 tablet 01/04/2025 Active pantoprazole (PROTONIX) 40 MG EC tablet TAKE ONE TABLET BY MOUTH EVERY MORNING 90 tablet 01/04/2025 Active Active Problems Problem Noted Date Diagnosed Date Stage 3a chronic kidney disease 01/08/2022 Overview (01/16/2023): S/t glomerulonephritis, component of tubular interstitial nephritis, had renal biopsy in 2016, s/p corticosteroid therapy and cellcept therapy. Details about CKD including different staging and its effects on the body as well as renal function preservation were discussed. Patient was also educated on CKD related issues including electrolyte imbalance, fluid excess, metabolic acidosis, anemia of CKD, and bone and mineral metabolism including calcium, phosphorous, vitamin D, and hyperparathyroidism discussed. All questions were answered and patient verbalized understanding. Vitamin D deficiency 07/11/2021 Overview (01/16/2023): Patient is known to have low vitamin D and has been on vitamin D supplements. I will check and follow vitamin D levels as needed.Details about vitamin D deficiency especially in the winter months discussed, check and supplement as needed. Peripheral edema 07/11/2021 Obesity 07/11/2021 Overview (01/16/2023): Patient was counselled for obesity related medical problems, risks and complications, including but not limited to DM, Hypertension, PATRICIA, osteoarthritis etc. Counselled for weight loss with dietary and lifestyle modification, as well as exercise and about portion control. It was emphasized that combination of all this works much better as compared to trying one thing at a time. Details about increased complexity of all forms of care along with increased mortality and morbidity discussed as well. 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 Multiple first degree family members with RONALD (2 brothers required short-term HD) but she is not sure what the etiology is. -In April 2016, due to not responding to the prednisone,in Apr 2016, we added mycophenolate 500 mg bid to the prednisone 60 mg, her urine A/C ratio appeared to have stabilized to 1833 mg/g (~2g) at the May 2016 visit. Labs for in Jun 2016 indicated a P/C ratio of ~ 6.5 g with total random urine of 1522 and random creatinine of 234.Jul 2016 24 hr urine returned 302.1 mg/24 hr (with total spot urine protein 15.9, and creatinine 47). -October 2016 Cr 0.9 mg/dL, urine studies showed total urine protein 13.5, 24 hr calculated protein 290 mg on mycophenolate 500 mg bid and prednisone 20 mg qday (she did not tolerate qod). Jan 2017 visit, P/C ratio ~ 1g, wt is down and patient feeling better. Will continue the prednisone at 10mg/day and the mycophenolate 500 mg bid for another 3 months. 05/2017 visit, P/C ratio -ve, prednisone taper began 09/04/17 visit P/C ratio -ve, off prednisone 03/13/18 visit P/C ratio -ve, will stop the cellcept today Benign hypertension with chronic kidney disease 07/11/2021 Overview (01/16/2023): Patient denies having any significant issues with the blood pressure at home he can continue the same medications. He was encouraged to check blood pressures at home and if it runs greater than 150 systolic will call for further adjustments of medication. He was encouraged to watch the salt in his diet as well, risk associate with hypertension discussed with the patient. Gout 07/11/2021 Overview (01/16/2023): Patient does not have any acute symptoms, occasionally may have pains and aches, has been taking allopurinol without any problem and does have colchicine for as needed use. Has not required it for some time. Follow uric acid. Gastroesophageal reflux disease 07/11/2021 Anemia 07/11/2021 Overview (01/16/2023): Has not had EGD/colonoscopy and was encouraged to f/u with GI. Patient has been known to have anemia, she cannot recall if she had anemia work-up done. I will go ahead and do the routine blood test and see if she will benefit from getting some iron or Procrit.Continue to follow hemoglobins, patient has history of iron deficiency in the past. Currently appears to be doing well with stable hemoglobins. Work-up as needed. Hodgkin's disease of lymph nodes of multiple sit es 09/24/2019 Overview (01/16/2023): History of Hodgkins, follows with heme/onc Encounters Date Type Department Care Team Description 03/28/2025 Telephone [facility], [facility] [address] [place] [address] Laurel Galindo 03/23/2025 Telephone [facility], [place] [id number] [place] [address] Laurel Galindo 01/04/2025 Refill [facility], [address] [place] [address] Luis Armando Tierney NP from Last 3 Months Immunizations Immunization Administration Dates Next Due Pfizer SARS-COV-2 02/28/2021,01/31/2021 Family History Medical History Relation Comments Hypertension Brother 1 Hypertension Brother 2 Kidney disease Brother 2 Prostate cancer Brother 3 Rheum arthritis Brother 3 Gout Brother 4 Alzheimer's disease Father at 84 Atrial fibrillation Mother Diabetes Mother Heart disease Mother A-FIB Hypertension Mother Kidney disease Paternal Grandmother Had One Kid dustin Relation Status Comments Brother 1 Brother 2 Alive Brother 3 Alive Brother 4 Alive Father Mother Alive Paternal Grandmother Social History Tobacco Use Types Packs/Day Years Used Date Smoking Tobacco: Never Smokeless Tobacco: Never Tobacco Cessation:Counseling Given: Not Answered Alcohol Use Standard Drinks/Week Comments Never 0 (1 standard drink = 0.6 oz pur e alcohol) Comments No Sex and Gender Information Value Date Recorded Sex Assigned at Not on file Legal Sex Female 11:41 AM EDT Gender Identity Not on file Sexual Orientation Not on file Last Filed Vital Signs Vital Sign Reading Time Taken Comments Blood Pressure 124/78 09/28/2024 10:06 AM EDT Pulse 61 09/28/2024 10:06 AM EDT Temperature 36.3 C (97.3 F) 07/06/2020 2:15 PM EST Respiratory Rate - - Oxygen Saturation 97% 09/28/2024 10:06 AM EDT Inhaled Oxygen Concentration - - Weight 109 kg (239 lb 3.2 oz) 09/28/2024 10:06 A M EDT Height 167.6 cm (5' 6 ) 09/28/2024 10:06 AM EDT Body Mass Index 38.61 09/28/2024 10:06 AM EDT Plan of Treatment Upcoming Encounters Date Type Department Care Team (Late st Contact Info) Description 03/30/2025 Orders Only [facility], [address] [place] [address] Luis Armando Tierney NP [address] [place] [address] [place] [address] Stage 3a chronic kidney disease (HCC); Benign hypertension with chronic kidney disease; Anemia, not otherwise specified; Idiopathic gout, not otherwise specified; Nephrotic syndrome with minimal change glomerulonephritis; Peripheral edema; Vitamin D deficiency, not otherwise specified 03/30/2025 1:00 PM EDT Office Visit [facility] [address] [place] [address] Luis Armando Tierney, RASHIDA [address] [place] [address] Health Maintenance Due Date Last Done Comments Breast Cancer Screening 1966 Hepatitis B Vaccine (1 of 3 - 19+ 3-dose series) 01/09 Pneumococcal Vaccine: 50+ Years (1 of 2 - PCV) 985 Colorectal Cancer Screening: Annual FOBT 2015 Colorectal Cancer Screening: Colonoscopy 2015 Colorectal Cancer Screening: Sigmoidoscopy 2015 Influenza Vaccine (#1) 2025 Insurance [facility] Care Teams Roof Cement And Paint Maker Relationship Specialty Start Date End Date Lucía Monsalve [address] [place] [address] [facility] [id number] PCP - General 09/28/24
--- OUTSIDE RECORDS SUMMARY | 2025-03-28 09:55 | XMS_ITS ---
[facility] Organization [facility] Address [address] [place] [address] Care Team Providers Care Human Services Assistant Name Role Phone Raiza Harden APRN Primary Care Provider [phone] Active Problems Problem Noted Date Diagnosed Date IIH (idiopathic intracranial hypertension) 12/31 Unintentional weight loss 09/25/2019 Severe malnutrition 09/25/2019 Acute UTI (urinary tract infection) 09/25/2019 Acute urinary retention 09/25/2019 Nausea 09/24/2019 Hodgkin lymphoma of lymph nodes of multiple ariane ons 09/24/2019 CKD (chronic kidney disease) 09/24/2019 Current Treatment and Therapy Plans No current plan information found. Past Treatment and Therapy Plans No past plan information found. Lifetime Dose Tracking * Chemical Lifetime Dose Automatic Entry Manual Entr y Cumulative Air Kerma 571 mGy 0 mGy 571 mGy Fluoro Time 13.6 Minutes 0 Minutes 13.6 Minutes Resolved Problems Problem Noted Date Diagnosed Date Resolved Date Dyspnea 09/24/2019 09/25/2019
--- OUTSIDE RECORDS SUMMARY | 2025-03-28 09:55 | XMS_ITS | Clinical Summary ---
Author Organization [facility] Address [address] [place] [address] Care Team Providers Care Community Development Coordinator Name Role Phone HardenRaiza TEA Primary Care Provider [phone] Allergies No known active allergies Medications pantoprazole (PROTONIX) 40 MG EC tablet Take 1 tablet by mouth Daily As Needed (gerd). 0 Active Additional Information Patient taking differently:40 mg OralDaily, Reported on 01/19/2024 acetaZOLAMIDE (DIAMOX) 250 MG tablet Take 1 tablet by mouth 2 (Two) Times a Day. 3 Active bumetanide (BUMEX) 2 MG tablet Take 1 tablet by mouth Daily. DOESN'T TAKE WHILE SHE'S TAKING DIAMOX Active calcitriol (ROCALTROL) 0.5 MCG capsule Take 1 capsule by mouth Every Night. Active Cholecalciferol 50 MCG (2000 UT) capsule Take 1 capsule by mouth Every Night. Active HYDROcodone-jan taminophen (NORCO) 5-325 MG per tablet Take 0.5-1 tablets by mouth Every 6 (Six) Hours As Needed for Moderate Pain. Active febuxostat (ULORIC) 40 MG tablet Take 1 tablet by mouth Daily. Active Active Problems Problem Noted Date Diagnosed Date IIH (idiopathic intracranial hypertension) 12/31 Unintentional weight loss 09/25/2019 Severe malnutrition 09/25/2019 Acute UTI (urinary tract infection) 09/25/2019 Acute urinary retention 09/25/2019 Nausea 09/24/2019 Hodgkin lymphoma of lymph nodes of multiple ariane ons 09/24/2019 CKD (chronic kidney disease) 09/24/2019 Resolved Problems Problem Noted Date Diagnosed Date Resolved Date Dyspnea 09/24/2019 09/25/2019 Family History Medical History Relation Name Comments No Known Problems Brother 1 Hypertension Brother 2 Diabetes Brother 3 Hypertension Brother 3 Prostate cancer Brother 4 Rheum arthritis Brother 4 Gout Brother 5 Dementia Father Atrial fibrillation Mother Diabetes Mother Hypertension Mother Hodgkin's lymphoma Paternal Uncle Relation Name Status Comments Brother 1 Brother 2 Brother 3 Alive Brother 4 Alive Brother 5 Alive Father Mother Alive Paternal Uncle Sister Alive Social History Tobacco Use Types Packs/Day Years Used Date Smoking Tobacco: Never Smokeless Tobacco: Never Tobacco Cessation:Counseling Given: Not Answered Alcohol Use Standard Drinks/Week Comments Never 0 (1 standard drink = 0.6 oz pur e alcohol) AUDIT-C Answer Date Recorded Q1: How often do you have a drink containing alcohol? Never 01/19/2024 Q2: How many drinks containi ng alcohol do you have on a typical day when you are drinking? Patient does not drink Q3: How often do you have si x or more drinks on one occasion? Never 01/19/2024 Abuse Screen Answer Date Recorded Feels Unsafe at Home or Work/School no 01/19/2024 Feels Threatened by Someone no 10/2023 Does Anyone Try to Keep You From Having Contact with Others or Doing Things Outside Your Home? no 01/19/2024 Physical Signs of Abuse Present no 01/19/2024 Housing Stability Answer Date Recorded Current Living Arrangements home 10/2023 Potentially Unsafe Housing Conditions Not on grace e 01/19/2024 Family and Community Support Answer Terrell e Recorded Help with Day-to-Day Activities Not on file 03/26/2023 Lonely or Isolated Not on file 03/26/2023 Employment Answer Date Recorded Do you want help finding or keeping work or a papi b? Not on file 03/26/2023 Disabilities Answer Date Recorded Difficulty Concentrating, Remembering or Making Decisions no 01/19/2024 Difficulty Managing Errands Independently no 01/19/2024 Education Answer Date Recorded Help with school or training? Not on file Preferred Language Not on file 03/26/2023 Comments No Sex and Gender Information Value Date Recorded Sex Assigned at Not on file Legal Sex Female 4:57 PM EDT Gender Identity Not on file Sexual Orientation Not on file Last Filed Vital Signs Vital Sign Reading Time Taken Comments Blood Pressure 113/57 01/19/2024 12:00 PM EDT post ambulation Pulse 50 01/19/2024 12:01 PM EDT Temperature 35.8 C (96.5 F) 01/19/2024 7:24 AM EDT Respiratory Rate 16 01/19/2024 9:05 AM EDT Oxygen Saturation 98% 01/19/2024 12: 00 PM EDT Inhaled Oxygen Concentration - - Weight 113 kg (249 lb 12.5 oz) 01/19/2024 7:24 AM EDT Height 167.6 cm (5' 6 ) 01/19/2024 7:24 AM EDT Body Mass Index 40.32 01/19/2024 7:24 AM EDT Plan of Treatment Health Maintenance Due Date Last Done Comments Annual Gynecologic Pelvic and Breast Exam 1965 Pneumococcal Vaccine 50+ (1 of 2 - PCV) 1985 TDAP/TD VACCINES (1 - Tdap) 1985 ZOSTER VACCINE (1 of 2) 1985 MAMMOGRAM 2006 COLOGUARD 2011 COLON CANCER SCREENING 5 YEA R SIGMOIDOSCOPY 2011 COLONOSCOPY 2011 [address] CANCER SCREENING 2011 CT COLONOGRAPHY 2011 FECAL OCCULT BLOOD TEST 2011 FIT Testing (1 year) 2011 ANNUAL PHYSICAL 09/30/2019 HEPATITIS C SCREENING 09/30/2019 INFLUENZA VACCINE 01/14/2025 06/20/2023, 04/25/2021 Insurance [employer] Advance Directives * CPR (Attempt to Resuscitate) (Latest Code Status on File) Date Activated Date Inactivated Comments 09/24/2019 2:26 PM 09/30/2019 6:45 PM Question Answer Comments Code Status (Patient has no pulse and is not breathing): CPR (Attempt to Resuscitate) Medical Interventions (Patie nt has pulse or is breathing): Full Level Of Support Discussed With: Patient Care Teams Community Development Coordinator Relationship Specialty Start Date End Date Raiza Harden APRN PCP - General Internal Medicine 09/24/19
--- OUTSIDE RECORDS SUMMARY | 2025-03-28 09:56 | XMS_ITS | Encounter Summary ---
Author Organization [facility], [facility] Address [address] [address] Phone Care Team Providers Care Coding Compliance Specialist Name Role Phone GustavokristenLucía velasquez Primary Care Provider [phone] Encounter Details Date Type Department Care Team (Late st Contact Info) Description 03/28/2025 Telephone [facility], [address] [address] Laurel Galindo [address] [place] [address] Social History Tobacco Use Types Packs/Day Years Used Date Smoking Tobacco: Never Smokeless Tobacco: Never Alcohol Use Standard Drinks/Week Comments Never 0 (1 standard drink = 0.6 oz pur e alcohol) Comments No Sex and Gender Information Value Date Recorded Sex Assigned at Not on file Legal Sex Female 11:41 AM EDT Gender Identity Not on file Sexual Orientation Not on file documented as of this encounter Miscellaneous Notes * Telephone Encounter - Laurel Galindo - 03/28/2025 9:49 AM EDT Phone call to pt to see where she had her labs done, just kept ringing with no option of vm. MT documented in this encounter Plan of Treatment Upcoming Encounters Date Type Department Care Team (Late Contact Info) Description 03/30/2025 Orders Only [facility], [address] [address] Luis Armando Tierney, RASHIDA [address] [place] [phone] Stage 3a chronic kidney disease (HCC); Benign hypertension with chronic kidney disease; Anemia, not otherwise specified; Idiopathic gout, not otherwise specified; Nephrotic syndrome with minimal change glomerulonephritis; Peripheral edema; Vitamin D deficiency, not otherwise specified 03/30/2025 1:00 PM EDT Office Visit [facility], [address] [address] Luis Armando Tierney, ORNAMENTAL BRONZE WORKER [address] [place] [address] documented as of this encounter Visit Diagnoses Not on filedocumented in this encounter Care Teams Coding Compliance Specialist Relationship Specialty Start Date End Date Lucía Monsalve [address] [place] [id number] PCP - General 09/28/24 documented as of this encounter
--- OUTSIDE RECORDS SUMMARY | 2025-03-28 09:56 | XMS_ITS | Encounter Summary ---
Author Organization [facility], [facility] Address [address] [address] Phone Care Team Providers Care Technical Associate Name Role Phone Lucía Monsalve Primary Care Provider [phone] Encounter Details Date Type Department Care Team (Late st Contact Info) Description 03/23/2025 Telephone [facility], [address] [address] Laurel Galindo [address] [place] [address] Social History Tobacco Use Types Packs/Day [...] * Telephone Encounter - Laurel Galindo - 03/23/2025 11:04 AM EDT Confirmed appt with pt for 03/30. Went over precharting q's. Pt has lab order. MT documented in this encounter Plan of Treatment Upcoming Encounters Date Type Department Care Team (Late st Contact Info) Description 03/30/2025 Orders Only [facility], [address] [phone] Luis Armando Tierney, RASHIDA [address] [place] [phone] Stage 3a chronic kidney disease (HCC); Benign hypertension with chronic kidney disease; Anemia, not otherwise specified; Idiopathic gout, not otherwise specified; Nephrotic syndrome with minimal change glomerulonephritis; Peripheral edema; Vitamin D deficiency, not otherwise specified 03/30/2025 1:00 PM EDT Office Visit [facility], [address] [phone] Luis Armando Tierney, RASHIDA [address] [place] [phone] documented as of this encounter Visit Diagnoses Not on filedocumented in this encounter Care Teams Technical Associate Relationship Specialty Start Date End Date Lucía Monsalve [address] [place] [id number] PCP - General 09/28/24 documented as of this encounter
[2025-03-28 09:59] LABS: Microscopic, Urine URINE MICROSCOPIC (MICROSCOPIC)
[2025-03-28 10:16] LABS: Hematocrit 38.2 % (37.0-47.0); Hemoglobin 11.9 g/dL (12.2-16.2); Mean Corpuscular HGB Conc 31.2 g/dL (31.8-35.4); Mean Corpuscular Hemoglobin 27.0 pg (27.0-31.2); Mean Corpuscular Volume 86.8 fl (81-99); Nucleated Red Blood Cells % 0 %; Platelet Count 138 K/mm3 (142-424); Red Blood Count 4.40 M/mm3 (4.20-5.40); Red Cell Distribution Width-SD 45.0 fL; White Blood Count 6.4 K/mm3 (4.8-10.8)
[2025-03-28 10:41] LABS: Albumin Level 3.7 g/dl (3.5-5.0); Anion Gap 14.6 mEq/L (5-15); Blood Urea Nitrogen 29 mg/dl (7-17); Calcium 9.5 mg/dl (8.4-10.2); Carbon Dioxide 21 mmol/L (22.0-30.0); Chloride 110 mmol/L (98-107); Creatinine,Serum 1.50 mg/dl (0.52-1.04); Estimated Glomerular Filt Rate 36 ml/min (>60); GFR (African American) 43 ML/MIN (>60); Glucose 101 mg/dl (74-100); Phosphorous 3.9 mg/dl (2.5-4.5); Potassium 3.6 mmoL/L (3.5-5.1); Sodium 142 mmol/L (136-145)
[2025-03-28 10:59] LABS: 25-OH Vitamin D, Total 46.3 ng/mL (30-100)
[2025-03-28 11:06] LABS: Bilirubin,Urine Negative (Negative); Color,Urine YELLOW (Yellow); Glucose,Urine (UA) Negative (Negative); Ketones,Urine Negative (Negative); Leukocyte Esterase,Urine Negative (Negative); PH,Urine 6.0 (5.0-8.5); Protein,Urine Negative (Negative); Specific Gravity, Urine 1.020 (1.005-1.030); Urobilinogen,Urine 0.2 EU/dl (0.2)
[2025-03-28 11:44] LABS: Bacteria,Urine Trace /lpf
== END 2025-03-28 23:59 | disposition home or self-care (01) ==
LOC: LAB 09:50
PROVIDERS: PCP Nurse Practitioner; Visit Provider Nurse Practitioner Acute Care
DX: D64.9 Anemia, unspecified (principal); I12.9 Hypertensive chronic kidney disease with stage 1 through stage 4 chronic kidney disease, or unspecified chronic kidney disease; N18.31 Chronic kidney disease, stage 3a; M10.00 Idiopathic gout, unspecified site; E55.9 Vitamin D deficiency, unspecified; R60.9 Edema, unspecified
CPT/HCPCS: 36415; 80069; 81001; 82306; 82570; 83970; 84156; 85027